=== PATIENT | male | born 1940 | race Caucasian/White ===

== ENCOUNTER 2017-12-02 02:37 | Emergency (ER) | payer MEDICARE, BC ==
[2017-12-02 03:07] LABS: #Lymphocytes 0.7 thou/uL (1.20-3.40); #Monocytes 0.4 thou/uL (0.11-0.59); #Neutrophils 5.3 thou/uL (1.40-6.50); %Eosinophils 0.1 % (0.0-10.0); %Monocytes 5.6 % (0.0-10.0); %Neutrophils 83.2 % (42.0-75.0); Hemoglobin 10.1 g/dL (14.0-18.0); Mean Corpuscular HGB CONC 33.2 g/dL (32.0-36.0); Mean Corpuscular Hemoglobin 38.3 pg (27.0-31.0); Mean Platelet Volume 8.8 fL (7.4-10.4); Platelet Count 120 thou/uL (130-400); Red Blood Cell (RBC) Count 2.65 mill/uL (4.70-6.10); White Blood Cell (WBC) Count 6.4 thou/uL (4.8-10.8)
[2017-12-02] MEDS ORDERED: Morphine 4 MG/ML VIAL ONE (03:11)
[2017-12-02 03:36] LABS: Troponin I Less than 0.010 ng/mL (< 0.028)
[2017-12-02 03:39] LABS: ALT (SGPT) 22 U/L (8-55); AST (SGOT) 25 U/L (5-34); Albumin 2.5 g/dL (3.4-4.8); Alkaline Phosphatase 69 U/L (40-150); Anion Gap 21 mmol/L (10-20); BUN (Urea Nitrogen) 22 mg/dL (8.4-25.7); Bilirubin, Total 0.4 mg/dL (0.2-1.2); Calc. Creatinine Clearance 0 mL/min (70-130); Calcium 10.4 mg/dL (7.8-10.44); Carbon Dioxide 21 mmol/L (23-31); Chloride 104 mmol/L (98-107); Estimated GFR-MDRD 61; Globulin 7.9 g/dL (2.4-3.5); Glucose 97 mg/dL (83-110); Potassium 4.7 mmol/L (3.5-5.1); Protein, Total 10.4 g/dL (5.8-8.1); Sodium 141 mmol/L (136-145)
[2017-12-02] MEDS ORDERED: HYDROcodone/Acetaminophen 5/325 mg Tablet ONE (05:08)
--- NOTE | 2017-12-02 08:33 | RAD ---
PORTABLE CHEST: DATE: 12/02/2017. PROVIDED CLINICAL HISTORY: Chest pain. FINDINGS: Comparison 10/21/2011. Cardiac and mediastinal silhouette is within normal limits for portable techniq ue. NO foal consolidation, pleural fluid, or pneumothorax apparent. IMPRESSION: No evidence for an acute cardiopulmonary process. POS: [facility]
--- NOTE | 2017-12-02 10:28 | CT ---
PRELIMINARY REPORT/[facility]/EMERGENTY AFTER-HOURS PROCEDURE CT Angiography Chest With Intravenous Contrast EXAM DATE/TIME: 12/02/2017 3:36 AM CLINICAL HISTORY: 77 years old, male; Pain and signs and symptoms; Shortness of breath; Chest pain; Type not specified; Patient HX: Currently being worked up for multiple myeloma, not on chemo. Reports mild cp yesterday that became worse today. Pain radiates around to his back. Associated with SOB. No nausea or diaphore sis. No history of prior similar pain. No prior cardiac history. TECHNIQUE: Axial computed tomographic angiography images of the chest with intravenous contrast using CT angiogr aphy protocol. MIP reconstructed images were created and reviewed. COMPARISON: No relevant prior studies available. FINDINGS: Pulmonary arteries: Some motion artifact noted. No pulmonary embolus identified. Aorta: No aortic aneurysm. No aortic dissection. Lungs: Bibasal subsegmental atelectasis, greater on the right. 3-4 mm nodule laterally in the right u pper lobe. 2 mm nodule laterally in the left upper lobe. No mass or consolidation. Pleural space: No pneumothorax. No pleural effusion. Heart: Mildly enlarged with left ventricular prominence. Scattered left coronary calcifications. No s ignificant pericardial effusion. Bones/joints: Right sixth and ninth rib fractures posteriorly with small amount of callus formation. Chronic appearing L1 compression deformity. Mild T12 wedging. Osteopenia. Diffuse small lytic lesions most evident in the vertebral bodies. Soft tissues: Unremarkable. Lymph nodes: Unremarkable. No enlarged lymph nodes. IMPRESSION: 1. No acute findings. Bibasal subsegmental atelectasis. 2. Subacute right posterior sixth and ninth rib fractures. Thank you for allowing us to participate in the care of your patient. Dictated and Authenticated by: Zane Posey MD 12/02/2017 4:34 AM Central Time ([place] & [place]) FINAL REPORT EMERGENCY AFTER HOURS CT ANGIOGRAM THORAX WITH IV CONTRAST AND 3D RECONSTRUCTIONS: Date: 12/02/17 HISTORY: Shortness of breath and chest pain for the last several days. Patient also having back pain. IMPRESSION: 1. No definite filling defects are seen in the pulmonary arteries to suggest pulmonary embolus. 2. Thoracic aorta is normal in caliber without evidence of an aortic dissection. 3. Elevation of the right hemidiaphragm with parenchymal changes right lung base, likely attributabl e to atelectasis. There is also mild atelectasis at the left lung base. 4. Nonspecific 3 mm pulmonary nodule lateral aspect right upper lobe. 5. Tiny, approximately 2.0 mm, nonspecific pulmonary nodule lateral aspect left upper lobe (image 59 , series 3). 6. Upper limits of normal to borderline cardiomegaly. 7. Fractures of the right posterior medial 6th and 9th ribs. 8. Compression fractures of T12 and L1 vertebral bodies with greater than 50% loss of height central ly involving the L1 vertebral body compression fracture. No retropulsion of fracture fragments is see n. These compression fractures were present on a MRI of the thoracic spine on 11/24/17. There is gene ralized mottled appearance of the vertebral bodies of the thoracic spine, worrisome for diffuse osseo us metastatic disease. 9. Lytic lesion in the lateral left 5th rib with slight heterogeneity of several ribs, including the ribs where fractures are visualized. Slight heterogeneous appearance involving the manubrium with sm all focal lucency in the right clavicle. 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 Findings are in agreement with the preliminary report by [facility]. POS: [facility]
== END 2017-12-02 05:06 | disposition home or self-care (01) ==
LOC: ERS 02:37
DX: R07.81 Pleurodynia (principal); Z79.899 Other long term (current) drug therapy
CPT/HCPCS: 71045; 71275; 80053; 82553; 83880; 84484; 85025; 93005; 96374; J2270

== ENCOUNTER 2018-02-10 10:18 | Day surgery (SDC) | payer MEDICARE, BC ==
[2018-02-10] MEDS ORDERED: Acetaminophen 500 MG TAB PO SCH (10:45)
[2018-02-10] MEDS ORDERED: diphenhydrAMINE 25 MG CAP PO SCH (10:45)
[2018-02-10 11:43] VITALS: BMI 27.6
[2018-02-10 19:33] VITALS: BP 120/60; TEMP 97.8
[2018-02-10 19:55] LABS: #Lymphocytes 0.8 thou/uL (1.20-3.40); #Monocytes 0.1 thou/uL (0.11-0.59); #Neutrophils 1.3 thou/uL (1.40-6.50); %Basophils 0.3 % (0.0-1.0); %Eosinophils 0.2 % (0.0-10.0); %Lymphocytes 37.5 % (21.0-51.0); %Monocytes 6.1 % (0.0-10.0); %Neutrophils 55.8 % (42.0-75.0); Hemoglobin 10.3 g/dL (14.0-18.0); Mean Corpuscular Hemoglobin 37.4 pg (27.0-31.0); Mean Platelet Volume 8.7 fL (7.4-10.4); Platelet Count 99 thou/uL (130-400); RBC Distribution Width 18.9 % (11.5-14.5); Red Blood Cell (RBC) Count 2.76 mill/uL (4.70-6.10); White Blood Cell (WBC) Count 2.2 thou/uL (4.8-10.8)
[2018-02-10 20:13] LABS: MDiff Complete? YES; Macrocytosis SLIGHT = 6-15 cells (100X) (0-5/hpf)
== END 2018-02-10 19:44 | disposition home or self-care (01) ==
LOC: ONC/OP 10:18 → 3SE 10:18 → ONC/OP 19:44
PROVIDERS: ATTEND Internal Medicine Hematology & Oncology
DX: D64.9 Anemia, unspecified (principal); D69.6 Thrombocytopenia, unspecified
CPT/HCPCS: 36415; 36430; 85025; 86850; 86900; 86901; P9016

== ENCOUNTER 2018-02-11 14:57 | Outpatient (CLI) | payer MEDICARE, BC ==
--- NOTE | 2018-02-11 19:10 | MRI ---
MRI OF BRAIN WITH AND WITHOUT CONTRAST: 02/11/18 COMPARISON: Brain MRI from [facility], 11/24/17. CLINICAL HISTORY: Multiple myeloma and history of recent visual disturbance, and inability to control movements of righ t upper extremity. FINDINGS: There is a segmental region of the increased DWI signal which reveals T2 hyperintensity on the ADC ma p. This involves the watershed region of the left cerebral hemisphere and contains multifocal gyrifor m cortically based enhancement. Finding was not present on the recent, comparison MRI. Associated FLA IR and T2 parenchymal hyperintensity is present. No significant hemorrhagic susceptibility is seen. H owever, there is a component of intrinsic T1 hyperintensity along the cortex of the posterior left ce rebral hemisphere. No obvious dural based enhancing mass. IMPRESSION: Interval development of a prominent region of signal alteration which includes intrinsic T1 hyperinte nsity, FLAIR and T2 hyperintensity, as well as enhancement localizing to watershed distribution of po sterior left cerebral hemisphere. This favors cortical laminar necrosis related to late subacute infa rction. No significant evidence of hemosiderin deposition within this region of abnormal parenchymal signal abnormality. Recommend clinical correlation for evidence of stroke within this timeframe. As a conservative measure, a short term followup MR in six to eight weeks would be beneficial to eval uate for expected, interval temporal evolution related to ischemia. If there is concern for osseous i nvolvement of the calvarium related to patient's history of myeloma, this would be more optimally int errogated with CT head exam, as necessary. POS: [facility]
== END 2018-02-11 14:58 | disposition home or self-care (01) ==
LOC: BICMRI 14:57
PROVIDERS: ATTEND Internal Medicine Hematology & Oncology
DX: I63.9 Cerebral infarction, unspecified (principal); R90.89 Other abnormal findings on diagnostic imaging of central nervous system
CPT/HCPCS: 70553

== ENCOUNTER 2018-09-09 12:31 | Emergency (ER) | payer BC, MEDICARE, OTHER ==
--- NOTE | 2018-09-09 13:44 | RAD ---
3 VIEWS LEFT WRIST: Date: 09/09/18 COMPARISON: None. HISTORY: Injury, trauma, pain. FINDINGS: There is a markedly comminuted, impacted and displaced fracture of the distal left radius extending i nto the radiocarpal and distal radial ulnar joints. There is also a comminuted and displaced fracture involving the base of the ulnar styloid. There is prominent associated soft tissue swelling. On the lateral examination, there is mild volar tilt at the fracture site of the distal left radius. IMPRESSION: Comminuted, displaced, and angulated intraarticular fracture of distal left radius with associated ul tasha styloid fracture. POS: [facility]
[2018-09-09 13:58] LABS: #Eosinphils 0.1 thou/uL (0.0-0.7); #Lymphocytes 1.2 thou/uL (1.20-3.40); #Monocytes 0.1 thou/uL (0.11-0.59); #Neutrophils 1.3 thou/uL (1.40-6.50); %Basophils 0.5 % (0.0-1.0); %Eosinophils 2.1 % (0.0-10.0); %Lymphocytes 44.8 % (21.0-51.0); %Monocytes 4.2 % (0.0-10.0); %Neutrophils 48.5 % (42.0-75.0); Hemoglobin 9.8 g/dL (14.0-18.0); Mean Corpuscular HGB CONC 34.4 g/dL (32.0-36.0); Mean Corpuscular Hemoglobin 38.7 pg (27.0-31.0); Mean Platelet Volume 9.5 fL (7.4-10.4); Platelet Count 136 thou/uL (130-400); RBC Distribution Width 15.1 % (11.5-14.5); Red Blood Cell (RBC) Count 2.53 mill/uL (4.70-6.10); White Blood Cell (WBC) Count 2.7 thou/uL (4.8-10.8)
[2018-09-09 14:19] LABS: MDiff Complete? YES; Macrocytosis SLIGHT = 6-15 cells (100X) (0-5/hpf); Ovalocytes SLIGHT = 2-5 cells (100X) (0-1/hpf); Platelet Morphology Comment Appears Adequate; Polychromasia SLIGHT = 2-3 cells (100X) (0-2/hpf)
[2018-09-09 14:20] LABS: ALT (SGPT) 16 U/L (8-55); AST (SGOT) 18 U/L (5-34); Albumin 3.1 g/dL (3.4-4.8); Alkaline Phosphatase 55 U/L (40-150); Anion Gap 12 mmol/L (10-20); BUN (Urea Nitrogen) 9 mg/dL (8.4-25.7); Bilirubin, Total 0.6 mg/dL (0.2-1.2); Calc. Creatinine Clearance 0 mL/min (70-130); Calcium 8.4 mg/dL (7.8-10.44); Carbon Dioxide 21 mmol/L (23-31); Chloride 105 mmol/L (98-107); Estimated GFR-MDRD 90; Globulin 3.2 g/dL (2.4-3.5); Glucose 89 mg/dL (83-110); Potassium 3.5 mmol/L (3.5-5.1); Protein, Total 6.3 g/dL (5.8-8.1); Sodium 134 mmol/L (136-145)
[2018-09-09] MEDS ORDERED: cefTRIAXone\\ROCEPHIN 2 GM VIAL ONE (14:27)
[2018-09-09] MEDS ORDERED: Sodium Chloride 0.9% 100 ML ONE (14:27)
--- NOTE | 2018-09-09 14:43 | RAD ---
RADIOGRAPH LEFT HAND 3 VIEWS: Date: 09/09/18 Time: 1321 hours HISTORY: 78-year-old male with traumatic fractures of the left hand with superimposed infection and drainage. COMPARISON: None available. FINDINGS: Comminuted, displaced fracture of base of ulnar styloid process, and adjacent medial-ulnar aspect of the distal ulnar metaphysis with moderate displacement. Comminuted fracture of distal radial metaphysis and epiphysis, with disruption of radiocarpal articul ar surface, and moderate displacement. Comminuted, mildly displaced fracture of proximal metaphysis of first metacarpal. No dislocation or o bvious gross disruption of first CMC joint. Fracture at base of fifth metacarpal, with rotation and mild to moderate displacement of medial-ulnar side fracture fragment. Partial disruption of medial aspect of fifth CMC joint space. Moderate DJD at second and third MCPs, and first IP. IMPRESSION: Acute, traumatic, displaced, comminuted fractures of distal radius (including intraarticular componen ts), distal ulnar metaphysis (including ulnar styloid), base of fifth metacarpal (including intraarti cular), and base of first metacarpal. POS: [facility]
[2018-09-09] MEDS ORDERED: Gentamicin Sulfate 300 MG in Sodium Chloride 0.9% 100 ML IVPB SCH (16:00)
== END 2018-09-09 16:42 | disposition short-term general hospital (02) ==
LOC: ERS 12:31
DX: S52.572B Other intraarticular fracture of lower end of left radius, initial encounter for open fracture type I or II (principal); S52.612B Displaced fracture of left ulna styloid process, initial encounter for open fracture type I or II; S62.316B Displaced fracture of base of fifth metacarpal bone, right hand, initial encounter for open fracture; S62.232B Other displaced fracture of base of first metacarpal bone, left hand, initial encounter for open fracture; V89.2XXA Person injured in unspecified motor-vehicle accident, traffic, initial encounter; Z79.899 Other long term (current) drug therapy
CPT/HCPCS: 29125; 80053; 83605; 85025; 85652; 86140; 87040; 96365; J0696; J1580; J3490

== ENCOUNTER 2018-10-15 19:44 | Inpatient (IN) | payer MEDICARE, BC ==
[2018-10-15 20:49] LABS: ALT (SGPT) 28 U/L (8-55); AST (SGOT) 37 U/L (5-34); Albumin 3.4 g/dL (3.4-4.8); Alkaline Phosphatase 83 U/L (40-150); Anion Gap 13 mmol/L (10-20); BUN (Urea Nitrogen) 9 mg/dL (8.4-25.7); Bilirubin, Total 0.3 mg/dL (0.2-1.2); Calc. Creatinine Clearance 0 mL/min (70-130); Calcium 8.4 mg/dL (7.8-10.44); Carbon Dioxide 18 mmol/L (23-31); Chloride 99 mmol/L (98-107); Estimated GFR-MDRD 59; Globulin 3.9 g/dL (2.4-3.5); Glucose 97 mg/dL (83-110); Potassium 4.3 mmol/L (3.5-5.1); Protein, Total 7.3 g/dL (5.8-8.1); Sodium 126 mmol/L (136-145)
[2018-10-15 20:52] LABS: Band 6 % (5-11); Hemoglobin 11.2 g/dL (14.0-18.0); Lymphocytes 51 % (21-51); MDiff Complete? YES; Mean Corpuscular HGB CONC 34.5 g/dL (32.0-36.0); Mean Corpuscular Hemoglobin 38.2 pg (27.0-31.0); Mean Platelet Volume 8.8 fL (7.4-10.4); Monocytes 12 % (0-10); Neutrophil 31 % (42-75); Platelet Count 145 thou/uL (130-400); Red Blood Cell (RBC) Count 2.93 mill/uL (4.70-6.10)
[2018-10-15] MEDS ORDERED: Ondansetron ODT 4 MG TAB ONE ×2 (20:54→20:55)
[2018-10-15] MEDS ORDERED: Cefepime 2 GM VIAL ONE (21:31)
--- NOTE | 2018-10-15 21:31 | RAD ---
PORTABLE CHEST ONE VIEW: 10/15/18 at 9:05 p.m. HISTORY: Fever. Patient is currently taking chemotherapy for multiple myeloma. FINDINGS: Comparison made with exam of 12/02/17. There is continued elevation of the right hemidiaphragm. No focal areas of consolidation, pneumothora samia, jessica pulmonary edema, or pleural effusions are seen. There are postop changes of right rotator cuff repair surgery. IMPRESSION: No acute process. POS: [facility]
[2018-10-15 22:23] LABS: Bacteria/HPF None Seen HPF (None Seen); Bilirubin Negative (Negative); Blood, Urine Trace (Negative); Clarity Clear (Clear); Glucose, Urine (Dipstick) Normal (Negative); Leukocyte 25 Leu/uL (Negative); Nitrite Negative (Negative); Protein, Urine (Dipstick) 100 mg/dL (Neg-Trace); Squamous Epithelial 0-3 HPF (0-3); Urobilinogen Normal mg/dL (Less than 2)
[2018-10-16] MEDS ORDERED: Acetaminophen 325 MG TAB PO PRN ×2 (00:41→00:42)
[2018-10-16] MEDS ORDERED: Ondansetron ODT 4 MG TAB SL PRN (00:41)
[2018-10-16] MEDS ORDERED: Ondansetron PF 4 MG/2 ML Vial IVP PRN ×2 (00:41→00:42)
[2018-10-16] MEDS ORDERED: diphenhydrAMINE 25 MG CAP PO PRN (00:42)
[2018-10-16] MEDS ORDERED: Sodium Chloride 0.9% 1,000 ML IV SCH ×2 (00:42→00:45)
[2018-10-16] MEDS ORDERED: Ondansetron ODT 4 MG TAB PO PRN (00:42)
[2018-10-16 01:23] VITALS: BMI 30.4
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
[2018-10-16 05:26] LABS: Anion Gap 12 mmol/L (10-20); BUN (Urea Nitrogen) 10 mg/dL (8.4-25.7); Calc. Creatinine Clearance 85 mL/min (70-130); Calcium 7.9 mg/dL (7.8-10.44); Carbon Dioxide 17 mmol/L (23-31); Chloride 104 mmol/L (98-107); Estimated GFR-MDRD 69; Glucose 99 mg/dL (83-110); Potassium 3.8 mmol/L (3.5-5.1); Sodium 129 mmol/L (136-145)
[2018-10-16 05:58] LABS: Band 7 % (5-11); Hemoglobin 10.2 g/dL (14.0-18.0); Lymphocytes 51 % (21-51); MDiff Complete? YES; Macrocytosis SLIGHT = 6-15 cells (100X) (0-5/hpf); Mean Corpuscular HGB CONC 34.6 g/dL (32.0-36.0); Mean Corpuscular Hemoglobin 38.7 pg (27.0-31.0); Mean Platelet Volume 8.3 fL (7.4-10.4); Monocytes 8 % (0-10); Neutrophil 34 % (42-75); Platelet Count 138 thou/uL (130-400); Platelet Morphology Comment Appears Adequate; Red Blood Cell (RBC) Count 2.64 mill/uL (4.70-6.10); White Blood Cell (WBC) Count 2.1 thou/uL (4.8-10.8)
[2018-10-16] MEDS: Lactated Ringer's 1,000 ML IV SCH ×2 (07:47→16:46)
[2018-10-16] MEDS ORDERED: Vancomycin HCl 1 GM in Premix Bag 1 BAG IVPB SCH (09:00)
[2018-10-16] MEDS: Cefepime 1 GM in Sodium Chloride 0.9% 100 ML IVPB SCH ×2 (09:00→19:35)
[2018-10-16] MEDS: Enoxaparin Sodium 40 MG/0.4 ML SYRINGE SC SCH (09:01)
[2018-10-16] MEDS ORDERED: Vancomycin HCl 750 MG in Sodium Chloride 0.9% 250 ML 250 ML IVPB SCH (11:00)
--- NOTE | 2018-10-16 11:23 | PDOC.HOSPP ---
- Subjective Encounter Date: 10/16/18 Encounter Time: 08:20 Subjective: 78 y/o male with MM on treatment, who recently discharged from another hospital on 10/14/2018 on antibiotics for diverticulitis now admitted with acute onset og fever. patient was found to have severe neutropenia and was admitted and started on broad spectrum antibiotics. patient with chronic constipation has been taking stool softeners but reported increase frequency since last night. Fever has subsided. - Objective Vital Signs & Weight: Vital Signs (12 hours) Temp Pulse Resp BP Pulse Ox 10/16/18 08:00 99.3 F 61 18 102/57 L 94 L 10/16/18 04:18 100.2 F H 65 12 106/59 L 94 L 10/16/18 00:41 99.1 F 76 16 115/72 98 10/16/18 00:00 99.1 F 76 16 115/72 98 Weight Weight 218 lb I&O: 10/15/18 10/16/18 10/17/18 06:59 06:59 06:59 Output Total 100 Balance -100 Result Diagrams: 10/16/18 04:45 10/16/18 04:45 Hospitalist ROS - Medication Medications: Active Medications Generic Name Dose Route Start Last Admin Trade Name Freq PRN Reason Stop Dose Admin Acetaminophen 650 mg 10/16/18 00:42 10/16/18 09:01 Tylenol PO 650 mg Q4H PRN Administration Headache/Fever/Mild Pain (1-3) Enoxaparin Sodium 40 mg 10/16/18 09:00 10/16/18 09:01 Lovenox SC 40 mg 0900 DACIA Administration Cefepime HCl 1 gm/ Sodium 100 mls @ 200 mls/hr 10/16/18 09:00 10/16/18 09:00 Chloride IVPB 100 mls Q12HR DACIA Administration Vancomycin HCl 750 mg/ Sodium 250 mls @ 250 mls/hr 10/16/18 11:00 10/16/18 10 :57 Chloride IVPB 250 mls 1100,2300 DACIA Administration Lactated Ringer's 1,000 mls @ 100 mls/hr 10/16/18 07:15 10/16/18 07:47 Lactated Ringer's IV 1,000 mls .Q10H DACIA Administration - Exam General Appearance: awake alert General - other findings: afebrile Eye: anicteric sclera ENT: normocephalic atraumatic Neck: supple, symmetric Heart: RRR Respiratory: no wheezes, no rales, no ronchi, normal chest expansion Gastrointestinal: soft, non-tender, non-distended, normal bowel sounds Extremities: no edema Extremeties - other findings: Left arm/forearm/hand covered in a cast. Neurological: CN's grossly intact, no focal deficits Psychiatric: normal affect, A&O x 3 Hosp A/P (1) Neutropenia with fever Code(s): D70.9 - NEUTROPENIA, UNSPECIFIED; R50.81 - FEVER PRESENTING WITH CONDITIONS CLASSIFIED ELSEWHERE Status: Acute (2) Sepsis Code(s): A41.9 - SEPSIS, UNSPECIFIED ORGANISM Status: Acute (3) Acute diverticulitis Code(s): K57.92 - DVTRCLI OF INTEST, PART UNSP, W/O PERF OR ABSCESS W/O BLEED Status: Acute (4) Multiple myeloma Code(s): C90.00 - MULTIPLE MYELOMA NOT HAVING ACHIEVED REMISSION Status: Acute (5) GILLIAN (acute kidney injury) Code(s): N17.9 - ACUTE KIDNEY FAILURE, UNSPECIFIED Status: Acute (6) HTN (hypertension) Code(s): I10 - ESSENTIAL (PRIMARY) HYPERTENSION Status: Acute (7) Hyponatremia Code(s): E87.1 - HYPO-OSMOLALITY AND HYPONATREMIA Status: Acute (8) Hyperchloremic metabolic acidosis Code(s): E87.2 - ACIDOSIS Status: Acute - Plan Continue antibiotics and neutropenic precaution substitute NS with LR due to worsening hyperchloremic acidosis Await stool dif ag test
[2018-10-16] MEDS: Sodium Bicarbonate Tab 325 MG TAB PO SCH ×2 (14:54→19:35)
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
--- NOTE | 2018-10-16 22:00 | CON ---
DATE OF CONSULTATION: 10/16/2018 REASON FOR CONSULTATION: Possible diverticulitis, fever and neutropenia in the setting of multiple myeloma. HISTORY OF PRESENT ILLNESS: 78-year-old with history of multiple myeloma on treatment by Dr. Justice. Currently, he is on Decadron in addition to other medications, not clear if he is taking any other drugs. He had some pain in the abdominal area and was seen at [place] and diagnosed with diverticulitis. He was there admitted for a few days and then released on the . After that, the patient is supposed to be on ciprofloxacin and Flagyl, which he took and initially there was improvement, but then the patient started having fever recurrence, had some diarrhea associated with it for the past few weeks. Because of persistence of fever, he came for evaluation, noticed anorexia as well. On arrival, his total white cell count is 2000 with 750 neutrophils and he has been started on broad-spectrum coverage. Currently, he is awake, feeling better. Has not had a bowel movement since admission. No headaches. No visual symptoms, sore throat, odynophagia, dysphagia. No neck pain. No dyspnea or cough. No abdominal pain. No genitourinary symptoms. No joint symptoms. PAST MEDICAL HISTORY: Multiple myeloma, melanoma, recently diagnosed diverticulitis and had a fracture of his left wrist with the cast in place and supposedly to be removed in 3 days. ALLERGIES: NONE. SOCIAL HISTORY: . Never smoker. FAMILY HISTORY: Parkinson disease. CURRENT MEDICATIONS: Cefepime, Benadryl, Lovenox, and Zofran. PHYSICAL EXAMINATION: VITAL SIGNS: T-max 100.2, blood pressure 106/59, pulse 57, respirations 16, and O2 saturation 93-94%. SKIN: Not particularly remarkable. Peripheral IV access, voiding in the toilet. No lymphadenopathy. GENERAL: Somewhat disheveled, chronically ill appearing, but in no acute distress. HEENT: Ocular movements are conjugate. Pupils are equal. Conjunctivae normal. NECK: Supple. LUNGS: Symmetric clear breath sounds. HEART: S1,. S2 without murmurs. ABDOMEN: Soft. Not distended or tender. No bladder distention. EXTREMITIES: The left upper extremity with cast in place, but no pain at the moment. No other appendicular structure changes noted. Pulses 1+ in dorsalis pedis. Moves extremities equally with limitations imposed by the left-sided upper extremity cast. NEURO: He is awake. He could not tell me where he was. Recollection is somewhat limited. He does follow commands. His speech appears to be okay. LABORATORY DATA: His white cell count is 2.0 and 2.1, hemoglobin 10, MCV 112, platelets 138, total neutrophil count 750, bands 7, lymphocytes 51%. Creatinine 1.04 with a GFR of 69. Sodium 129, AST 37, ALT 28, albumin 3.4. Urinalysis with 7-10 wbc's. Microbiology with C diff antigen and toxin negative. Two sets of blood cultures thus far no growth. IMAGING DATA: Chest x-ray with no infiltrates. ASSESSMENT: 1. Multiple myeloma on chemotherapy including Decadron plus Revlimid, recently diagnosed with diverticulitis and treated with Cipro and Flagyl. 2. Diarrhea, which seems to have improved. 3. Fever. 4. Moderate neutropenia. DISCUSSION: Differential diagnosis includes persistence of diverticulitis and an alternate intraabdominal inflammatory process, an opportunistic infection related to his chronic Decadron and Revlimid for tx of multiple myeloma. Thromboembolism appears to be less likely. Respiratory tract infection is not apparent in the exam. Chest x-ray is notoriously poorly sensitive sometimes for those early processes. The C diff has been ruled out. At this point, we would advise obtaining the results of the workup done in [place] and may consider repeating the CT abdomen and pelvis depending on the results of the original study. May need to follow up his chest film depending on clinical progress. Monitor blood cultures. Submit assays for opportunistic pathogens. Job ID: [id number] [id number]
[2018-10-17] MEDS: Lactated Ringer's 1,000 ML IV SCH ×3 (04:29→20:21)
[2018-10-17 05:31] LABS: Anion Gap 15 mmol/L (10-20); BUN (Urea Nitrogen) 8 mg/dL (8.4-25.7); Calc. Creatinine Clearance 97 mL/min (70-130); Carbon Dioxide 18 mmol/L (23-31); Chloride 103 mmol/L (98-107); Estimated GFR-MDRD 81; Glucose 84 mg/dL (83-110); Potassium 3.9 mmol/L (3.5-5.1); Sodium 132 mmol/L (136-145)
[2018-10-17 06:03] LABS: Band 4 % (5-11); Eosinophils 1 % (0-10); Hemoglobin 10.9 g/dL (14.0-18.0); Lymphocytes 67 % (21-51); MDiff Complete? YES; Macrocytosis SLIGHT = 6-15 cells (100X) (0-5/hpf); Mean Corpuscular HGB CONC 33.9 g/dL (32.0-36.0); Mean Corpuscular Hemoglobin 37.6 pg (27.0-31.0); Mean Platelet Volume 8.8 fL (7.4-10.4); Monocytes 7 % (0-10); Neutrophil 21 % (42-75); Platelet Count 141 thou/uL (130-400); RBC Distribution Width 15.3 % (11.5-14.5); Red Blood Cell (RBC) Count 2.89 mill/uL (4.70-6.10); White Blood Cell (WBC) Count 2.7 thou/uL (4.8-10.8)
[2018-10-17] MEDS: Cefepime 1 GM in Sodium Chloride 0.9% 100 ML IVPB SCH (08:31)
[2018-10-17] MEDS: Enoxaparin Sodium 40 MG/0.4 ML SYRINGE SC SCH (08:31)
[2018-10-17] MEDS: Sodium Bicarbonate Tab 325 MG TAB PO SCH ×3 (08:32→20:21)
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
--- NOTE | 2018-10-17 11:31 | PDOC.MOPN ---
Interval History: no fevers, no diarrhea, he is eating and drinking and keeping food down - Vital Signs Vital Signs: Vital Signs (12 hours) Temp Pulse Resp BP Pulse Ox 10/17/18 07:32 98.0 F 54 L 16 113/61 95 Weight Weight 218 lb - Physical Exam General: Alert HEENT: Atraumatic Lungs: Clear to auscultation Cardiovascular: Regular rate Abdomen: Normal bowel sounds, No tenderness, No hepatospenomegaly Extremities: No clubbing, No cyanosis Neurological: Normal gait Psych/Mental Status: Mental status NL - Labs Result Diagrams: 10/17/18 04:26 10/17/18 04:26 Lab results: Laboratory Results - last 24 hr 10/17/18 04:26: WBC 2.7 L, RBC 2.89 L, Hgb 10.9 L, Hct 32.2 L, MCV 111.0 H, MCH 37.6 H, MCHC 33.9, RDW 15.3 H, Plt Count 141, MPV 8.8, Neutrophils % (Manual) 21 L, Band Neuts % (Manual) 4 L, Lymphocytes % (Manual) 67 H, Monocytes % ( Manual) 7, Eosinophils % (Manual) 1, Macrocytosis SLIGHT = 6-15 cells 10/17/18 04:26: Sodium 132 L, Potassium 3.9, Chloride 103, Carbon Dioxide 18 L, Anion Gap 15, BUN 8 L, Creatinine 0.91, Estimated GFR (MDRD) 81, Glucose 84, Calcium 8.0 A/P - Plan Plan: 1. change to po levaquin 2. ok for d/c from our standpoint\ 3. f/u in clinic 4. hold revlimid and dex until he follows up ansd counts have recovered, they are on the rise 5. he will call us with fever
[2018-10-18 05:35] LABS: Anion Gap 10 mmol/L (10-20); BUN (Urea Nitrogen) 5 mg/dL (8.4-25.7); Calc. Creatinine Clearance 113 mL/min (70-130); Calcium 7.9 mg/dL (7.8-10.44); Carbon Dioxide 23 mmol/L (23-31); Chloride 107 mmol/L (98-107); Estimated GFR-MDRD Greater than 90; Glucose 88 mg/dL (83-110); Potassium 3.7 mmol/L (3.5-5.1); Sodium 136 mmol/L (136-145)
[2018-10-18 06:04] LABS: Band 4 % (5-11); Eosinophils 2 % (0-10); Hemoglobin 9.7 g/dL (14.0-18.0); Lymphocytes 63 % (21-51); MDiff Complete? YES; Mean Corpuscular HGB CONC 34.7 g/dL (32.0-36.0); Mean Corpuscular Hemoglobin 37.9 pg (27.0-31.0); Mean Platelet Volume 8.6 fL (7.4-10.4); Monocytes 3 % (0-10); Neutrophil 28 % (42-75); Platelet Count 127 thou/uL (130-400); RBC Distribution Width 15.1 % (11.5-14.5); Red Blood Cell (RBC) Count 2.56 mill/uL (4.70-6.10); White Blood Cell (WBC) Count 1.7 thou/uL (4.8-10.8)
--- NOTE | 2018-10-18 07:00 | PDOC.HOSPP ---
- Subjective Encounter Date: 10/18/18 Encounter Time: 06:58 Subjective: No New problem. Denied fever or abdominal pain. Appetite and oral intake is good. - Objective Vital Signs & Weight: Vital Signs (12 hours) Temp Pulse Resp BP Pulse Ox 10/17/18 20:00 98.0 F 54 L 16 126/65 95 Weight Weight 218 lb I&O: 10/16/18 10/17/18 10/18/18 06:59 06:59 06:59 Intake Total 1500 4250 Output Total 100 900 Balance -100 1500 3350 Result Diagrams: 10/18/18 05:04 10/18/18 05:04 Hospitalist ROS - Medication Medications: Active Medications Generic Name Dose Route Start Last Admin Trade Name Freq PRN Reason Stop Dose Admin Acetaminophen 650 mg 10/16/18 00:42 10/16/18 09:01 Tylenol PO 650 mg Q4H PRN Administration Headache/Fever/Mild Pain (1-3) Enoxaparin Sodium 40 mg 10/16/18 09:00 10/17/18 08:31 Lovenox SC 40 mg 0900 DACIA Administration Lactated Ringer's 1,000 mls @ 100 mls/hr 10/16/18 07:15 10/17/18 20:21 Lactated Ringer's IV 1,000 mls .Q10H DACIA Administration Levofloxacin 750 mg 10/17/18 12:00 10/17/18 12:20 Levaquin PO 10/20/18 12:01 750 mg 1200 DACIA Administration Sodium Bicarbonate 650 mg 10/16/18 15:00 10/17/18 20:21 Bicarbonate, Sodium PO 650 mg TID DACIA Administration Hosp A/P (1) Neutropenia with fever Code(s): D70.9 - NEUTROPENIA, UNSPECIFIED; R50.81 - FEVER PRESENTING WITH CONDITIONS CLASSIFIED ELSEWHERE Status: Acute (2) Sepsis Code(s): A41.9 - SEPSIS, UNSPECIFIED ORGANISM Status: Acute (3) Acute diverticulitis Code(s): K57.92 - DVTRCLI OF INTEST, PART UNSP, W/O PERF OR ABSCESS W/O BLEED Status: Acute (4) Multiple myeloma Code(s): C90.00 - MULTIPLE MYELOMA NOT HAVING ACHIEVED REMISSION Status: Acute (5) GILLIAN (acute kidney injury) Code(s): N17.9 - ACUTE KIDNEY FAILURE, UNSPECIFIED Status: Acute (6) HTN (hypertension) Code(s): I10 - ESSENTIAL (PRIMARY) HYPERTENSION Status: Acute (7) Hyponatremia Code(s): E87.1 - HYPO-OSMOLALITY AND HYPONATREMIA Status: Acute (8) Hyperchloremic metabolic acidosis Code(s): E87.2 - ACIDOSIS Status: Acute - Plan Discharged home today to meet appointment with Ortho. Discharge summary dictated. #[id number]
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
[2018-10-18] MEDS: Sodium Bicarbonate Tab 325 MG TAB PO SCH ×2 (08:01→14:44)
[2018-10-18] MEDS: Enoxaparin Sodium 40 MG/0.4 ML SYRINGE SC SCH (08:02)
[2018-10-18 08:12] VITALS: BP 111/53; TEMP 97.9
--- NOTE | 2018-10-18 16:28 | PDOC.MOPN ---
Interval History: Patient denies complaints. - Vital Signs Vital Signs: Vital Signs (12 hours) Temp Pulse Resp BP Pulse Ox 10/18/18 08:00 97.9 F 48 L 16 111/53 L 94 L Weight Weight 218 lb - Physical Exam General: Alert, Oriented x3, No acute distress HEENT: Atraumatic, PERRLA, EOMI, Mucous membr. moist/pink Lungs: Clear to auscultation, Normal air movement Cardiovascular: Regular rate, Normal S1, Normal S2, No murmurs, Gallops, Rubs Abdomen: Normal bowel sounds, Soft, No tenderness, No hepatospenomegaly, No masses Extremities: No clubbing, No cyanosis, No edema, Normal pulses, No tenderness/ swelling Skin: No rashes, No breakdown, No significant lesion Neurological: Normal gait, Normal speech, Strength at 5/5 X4 ext, Normal tone, Sensation intact, Cranial nerves 3-12 NL, Reflexes 2+ Psych/Mental Status: Mental status NL, Mood NL - Labs Result Diagrams: 10/18/18 05:04 10/18/18 05:04 Lab results: Laboratory Results - last 24 hr 10/18/18 05:04: Sodium 136, Potassium 3.7, Chloride 107, Carbon Dioxide 23, Anion Gap 10, BUN 5 L, Creatinine 0.78, Estimated GFR (MDRD) Greater than 90, Glucose 88, Calcium 7.9 10/18/18 05:04: WBC 1.7 L, RBC 2.56 L, Hgb 9.7 L, Hct 27.9 L, MCV 109.0 H, MCH 37.9 H, MCHC 34.7, RDW 15.1 H, Plt Count 127 L, MPV 8.6, Neutrophils % (Manual) 28 L, Band Neuts % (Manual) 4 L, Lymphocytes % (Manual) 63 H, Monocytes % ( Manual) 3, Eosinophils % (Manual) 2 Status: lab reviewed by me A/P - Problem (1) Multiple myeloma Current Visit: Yes Code(s): C90.00 - MULTIPLE MYELOMA NOT HAVING ACHIEVED REMISSION Status: Acute (2) Neutropenia with fever Current Visit: Yes Code(s): D70.9 - NEUTROPENIA, UNSPECIFIED; R50.81 - FEVER PRESENTING WITH CONDITIONS CLASSIFIED ELSEWHERE Status: Acute - Plan Plan: Patient to be discharged home today Follow-up Dr. Justice 11/01/18 at 1:00pm
[2018-10-19 07:13] LABS: CMV DNA-PCR Test Negative (Negative)
== END 2018-10-18 16:47 | disposition home or self-care (01) | DRG 808 ==
LOC: ERS 19:44 → ONC 21:50
PROVIDERS: ADMIT Internal Medicine; ATTEND Internal Medicine
DX: D70.1 Agranulocytosis secondary to cancer chemotherapy (principal); A41.9 Sepsis, unspecified organism; C79.2 Secondary malignant neoplasm of skin; E87.1 Hypo-osmolality and hyponatremia; K57.92 Diverticulitis of intestine, part unspecified, without perforation or abscess without bleeding; N17.9 Acute kidney failure, unspecified; E87.2 Acidosis; C90.00 Multiple myeloma not having achieved remission; R50.81 Fever presenting with conditions classified elsewhere; K59.09 Other constipation; E86.0 Dehydration; X58.XXXD Exposure to other specified factors, subsequent encounter; T45.1X5A Adverse effect of antineoplastic and immunosuppressive drugs, initial encounter; E87.8 Other disorders of electrolyte and fluid balance, not elsewhere classified; S62.102D Fracture of unspecified carpal bone, left wrist, subsequent encounter for fracture with routine healing; Z79.899 Other long term (current) drug therapy; Z79.82 Long term (current) use of aspirin
CPT/HCPCS: 36415; 71045; 80048; 80053; 81003; 81015; 83605; 83930; 83935; 84300; 84443; 85025; 87040; 87324; 87449; 87497; 87899; 96361; 96365; 96367; J0692; J1650; J3370; J3490; J7050; Q0162

== ENCOUNTER 2020-04-15 15:31 | Outpatient (CLI) | payer MEDICARE, BC ==
--- NOTE | 2020-04-15 15:49 | RAD ---
EXAM: Two views chest PROVIDED CLINICAL HISTORY: Cough. Expiratory wheezing. Throat pain. COMPARISON: 10/15/2018. FINDINGS: Cardiac silhouette is mildly enlarged. Pulmonary vasculature is within normal limits. Mild elevation right hemidiaphragm is again present. Lungs are clear. Postoperative changes bilateral shoulders. IMPRESSION: 1. No acute cardiopulmonary process. 2. Borderline cardiomegaly..
== END 2020-04-15 15:32 | disposition home or self-care (01) ==
LOC: BICRAD 15:31
PROVIDERS: ATTEND Physician Assistant Medical
DX: R06.2 Wheezing (principal); R05 Cough; R07.0 Pain in throat; R13.10 Dysphagia, unspecified
CPT/HCPCS: 71046; 80053; 85025; U0003; U0005; 36415; 87635

== ENCOUNTER 2020-04-30 10:39 | Outpatient (CLI) | payer MEDICARE, BC ==
[2020-04-30] MEDS ORDERED: Iopamidol 370 76% 100 ML VIAL ONE (11:28)
== END 2020-04-30 10:40 | disposition home or self-care (01) ==
LOC: BICCT 10:39
PROVIDERS: ATTEND Physician Assistant Medical
DX: R05 Cough (principal); R06.2 Wheezing; R07.0 Pain in throat
CPT/HCPCS: 71260; Q9967

== ENCOUNTER 2020-10-29 18:09 | Inpatient (IN) | payer MEDICARE, BC ==
[~2020-10-29 18:09] MED LIST: Iopamidol-370 76% 500 ML 1 ML ONE
[2020-10-29 18:54] LABS: Hemoglobin 14.4 g/dL (14.0-18.0); Mean Corpuscular Hemoglobin 37.1 pg (27.0-31.0); Mean Platelet Volume 10.2 fL (7.4-10.4); Platelet Count 106 thou/uL (130-400); RBC Distribution Width 15.8 % (11.5-14.5); Red Blood Cell (RBC) Count 3.88 mill/uL (4.70-6.10)
[2020-10-29 19:07] LABS: #Lymphocytes 0.7 thou/uL (1.20-3.40); #Monocytes 0.2 thou/uL (0.11-0.59); #Neutrophils 2.5 thou/uL (1.40-6.50); %Basophils 0.5 % (0.0-1.0); %Eosinophils 0.5 % (0.0-10.0); %Lymphocytes 20.8 % (21.0-51.0); %Monocytes 4.7 % (0.0-10.0); %Neutrophils 73.5 % (42.0-75.0); Anisocytosis SLIGHT = 6-15 cells (100X) (0-5/hpf); Band 3 % (5-11); Eosinophils 1 % (0-10); Lymphocytes 17 % (21-51); MDiff Complete? YES; Macrocytosis SLIGHT = 6-15 cells (100X) (0-5/hpf); Monocytes 6 % (0-10); Neutrophil 71 % (42-75); Ovalocytes SLIGHT = 2-5 cells (100X) (0-1/hpf); Platelet Morphology Comment Appears Decreased; Reactive Lymphocytes 1 % (0-10); White Blood Cell (WBC) Count 3.4 thou/uL (4.8-10.8)
[2020-10-29 19:11] LABS: Bacteria/HPF 2+ HPF (None Seen); Bilirubin 1+ (Negative); Blood, Urine 2+ (Negative); Clarity Cloudy (Clear); Glucose, Urine (Dipstick) Normal (Negative); Ketone, Urine 10 mg/dL (Negative); Leukocyte Negative Leu/uL (Negative); Nitrite Negative (Negative); Protein, Urine (Dipstick) 100 mg/dL (Neg-Trace); Specific Gravity, Urine 1.028 (1.002-1.036); Squamous Epithelial 0-3 HPF (0-3); Urobilinogen Normal mg/dL (Less than 2)
[2020-10-29 19:11] LABS: ALT (SGPT) 58 U/L (8-55); AST (SGOT) 40 U/L (5-34); Albumin 3.7 g/dL (3.4-4.8); Alkaline Phosphatase 112 U/L (40-110); Anion Gap 16 mmol/L (10-20); BUN (Urea Nitrogen) 13 mg/dL (8.4-25.7); Bilirubin, Total 1.4 mg/dL (0.2-1.2); Calc. Creatinine Clearance 0 mL/min (70-130); Carbon Dioxide 22 mmol/L (23-31); Chloride 99 mmol/L (98-107); Globulin 2.5 g/dL (2.4-3.5); Glucose 94 mg/dL (83-110); Protein, Total 6.2 g/dL (5.8-8.1); Sodium 134 mmol/L (136-145)
[2020-10-29 19:33] LABS: CKMB 0.9 ng/mL (0-6.6)
[2020-10-29] MEDS ORDERED: cefTRIAXone\\ROCEPHIN 1 GM VIAL ONE (19:48)
[2020-10-29] MEDS ORDERED: Acetaminophen 650 MG Suppository PR PRN (22:44)
[2020-10-29] MEDS ORDERED: Ondansetron PF 4 MG/2 ML Vial IVP PRN (22:44)
[2020-10-29] MEDS ORDERED: Ondansetron ODT 4 MG TAB PO PRN (22:44)
[2020-10-29] MEDS ORDERED: Acetaminophen 325 MG TAB PO PRN (22:44)
[2020-10-29 22:59] LABS: Troponin I 0.046 ng/mL (< 0.028)
[2020-10-29 23:30] VITALS: BMI 29.9
[2020-10-29] MEDS ORDERED: Albuterol 200 PUFF (6.7GM INHALER) INH PRN (23:41)
[2020-10-29] MEDS ORDERED: Electrolyte Replacement Protocol 1 EACH FS SCH (23:45)
[2020-10-29] MEDS ORDERED: Potassium Chloride 20 MEQ TAB PO SCH (23:59)
[2020-10-29] MEDS ORDERED: Enoxaparin Sodium 40 MG/0.4 ML SYRINGE SC SCH (23:59)
[2020-10-30] MEDS ORDERED: Dexamethasone 10 MG/ML VIAL SLOW IVP SCH ×2 (05:02→09:00)
[2020-10-30 05:49] LABS: Anion Gap 16 mmol/L (10-20); BUN (Urea Nitrogen) 11 mg/dL (8.4-25.7); Calc. Creatinine Clearance 86 mL/min (70-130); Calcium 6.3 mg/dL (7.8-10.44); Carbon Dioxide 17 mmol/L (23-31); Chloride 103 mmol/L (98-107); Glucose 90 mg/dL (83-110); Sodium 133 mmol/L (136-145)
[2020-10-30 05:54] LABS: #Lymphocytes 0.8 thou/uL (1.20-3.40); #Monocytes 0.2 thou/uL (0.11-0.59); #Neutrophils 2.1 thou/uL (1.40-6.50); %Basophils 0.1 % (0.0-1.0); %Eosinophils 0.2 % (0.0-10.0); %Lymphocytes 25.3 % (21.0-51.0); %Monocytes 5.4 % (0.0-10.0); Hemoglobin 13.1 g/dL (14.0-18.0); Mean Corpuscular HGB CONC 33.6 g/dL (32.0-36.0); Mean Corpuscular Hemoglobin 35.1 pg (27.0-31.0); Mean Platelet Volume 10.3 fL (7.4-10.4); Platelet Count 93 thou/uL (130-400); RBC Distribution Width 15.7 % (11.5-14.5); Red Blood Cell (RBC) Count 3.73 mill/uL (4.70-6.10); White Blood Cell (WBC) Count 3.1 thou/uL (4.8-10.8)
[2020-10-30] MEDS ORDERED: Potassium Chloride 20 MEQ TAB PO SCH (06:30)
[2020-10-30] MEDS ORDERED: Magnesium Sulfate 4 GM in Sodium Chloride 0.9% 250 ML 250 ML IVPB SCH (08:00)
[2020-10-30] MEDS: Cholecalciferol (Vitamin D3) 400 UNITS TAB PO SCH (08:13)
[2020-10-30] MEDS: Ascorbic Acid 500 mg Chewable Tablet PO SCH (08:14)
[2020-10-30] MEDS: Zinc Sulfate 220 MG CAP PO SCH (08:14)
[2020-10-30] MEDS: Pantoprazole 40 MG VIAL IVP SCH (08:14)
[2020-10-30] MEDS: Enoxaparin Sodium 40 MG/0.4 ML SYRINGE SC SCH ×2 (08:14→20:10)
[2020-10-30] MEDS: guaiFENesin ER 600 MG TAB PO SCH ×2 (08:15→20:06)
[2020-10-30] MEDS: Cefepime 1 GM in Sodium Chloride 0.9% 100 ML IVPB SCH (21:57)
[2020-10-31 03:05] LABS: Legionella Urinary Ag Negative (Negative); Strep pneumo Urine Ag NEGATIVE (NEGATIVE)
[2020-10-31 05:06] LABS: #Lymphocytes 0.5 thou/uL (1.20-3.40); #Monocytes 0.1 thou/uL (0.11-0.59); #Neutrophils 1.9 thou/uL (1.40-6.50); %Eosinophils 0.6 % (0.0-10.0); %Lymphocytes 19.6 % (21.0-51.0); %Monocytes 2.8 % (0.0-10.0); %Neutrophils 77.1 % (42.0-75.0); Hemoglobin 13.2 g/dL (14.0-18.0); Mean Corpuscular HGB CONC 33.9 g/dL (32.0-36.0); Mean Corpuscular Hemoglobin 35.7 pg (27.0-31.0); Platelet Count 100 thou/uL (130-400); RBC Distribution Width 15.7 % (11.5-14.5); White Blood Cell (WBC) Count 2.4 thou/uL (4.8-10.8)
[2020-10-31 05:20] LABS: Anion Gap 14 mmol/L (10-20); BUN (Urea Nitrogen) 8 mg/dL (8.4-25.7); CRP (Inflammatory) 14.11 mg/dL (= or < 0.5); Calc. Creatinine Clearance 89 mL/min (70-130); Calcium 6.5 mg/dL (7.8-10.44); Carbon Dioxide 19 mmol/L (23-31); Chloride 102 mmol/L (98-107); Glucose 99 mg/dL (83-110); Sodium 132 mmol/L (136-145)
[2020-10-31] MEDS ORDERED: Potassium Chloride 20 MEQ TAB PO SCH (06:45)
[2020-10-31] MEDS: Pantoprazole 40 MG VIAL IVP SCH (08:40)
[2020-10-31] MEDS: Ascorbic Acid 500 mg Chewable Tablet PO SCH (08:40)
[2020-10-31] MEDS: Cholecalciferol (Vitamin D3) 400 UNITS TAB PO SCH (08:41)
[2020-10-31] MEDS: Zinc Sulfate 220 MG CAP PO SCH (08:41)
[2020-10-31] MEDS: guaiFENesin ER 600 MG TAB PO SCH ×2 (08:42→20:31)
[2020-10-31] MEDS: Cefepime 1 GM in Sodium Chloride 0.9% 100 ML IVPB SCH ×2 (08:42→20:30)
[2020-10-31] MEDS: Enoxaparin Sodium 40 MG/0.4 ML SYRINGE SC SCH ×2 (10:41→20:30)
[2020-10-31] MEDS ORDERED: Melatonin 3 MG TAB PO PRN (16:01)
[2020-11-01 04:56] LABS: Hemoglobin 13.1 g/dL (14.0-18.0); Mean Corpuscular Hemoglobin 35.8 pg (27.0-31.0); Mean Platelet Volume 9.8 fL (7.4-10.4); Platelet Count 94 thou/uL (130-400); RBC Distribution Width 15.6 % (11.5-14.5); Red Blood Cell (RBC) Count 3.67 mill/uL (4.70-6.10); White Blood Cell (WBC) Count 1.9 thou/uL (4.8-10.8)
[2020-11-01 04:57] LABS: #Lymphocytes 0.7 thou/uL (1.20-3.40); #Monocytes 0.1 thou/uL (0.11-0.59); #Neutrophils 1.2 thou/uL (1.40-6.50); %Eosinophils 0.6 % (0.0-10.0); %Lymphocytes 35.4 % (21.0-51.0); %Monocytes 3.5 % (0.0-10.0); %Neutrophils 60.5 % (42.0-75.0)
[2020-11-01 05:05] LABS: Anion Gap 15 mmol/L (10-20); BUN (Urea Nitrogen) 6 mg/dL (8.4-25.7); Calc. Creatinine Clearance 96 mL/min (70-130); Calcium 6.5 mg/dL (7.8-10.44); Carbon Dioxide 20 mmol/L (23-31); Chloride 101 mmol/L (98-107); Glucose 88 mg/dL (83-110); Potassium 3.3 mmol/L (3.5-5.1); Sodium 133 mmol/L (136-145)
[2020-11-01] MEDS ORDERED: Potassium Chloride 20 MEQ TAB PO SCH (07:00)
[2020-11-01] MEDS: Ascorbic Acid 500 mg Chewable Tablet PO SCH (08:58)
[2020-11-01] MEDS: guaiFENesin ER 600 MG TAB PO SCH ×2 (08:59→20:58)
[2020-11-01] MEDS: Zinc Sulfate 220 MG CAP PO SCH (08:59)
[2020-11-01] MEDS: Cholecalciferol (Vitamin D3) 400 UNITS TAB PO SCH (08:59)
[2020-11-01] MEDS: Cefepime 1 GM in Sodium Chloride 0.9% 100 ML IVPB SCH ×2 (08:59→20:58)
[2020-11-01] MEDS: Pantoprazole 40 MG VIAL IVP SCH (08:59)
[2020-11-01] MEDS: Enoxaparin Sodium 40 MG/0.4 ML SYRINGE SC SCH ×3 (09:00→20:58)
[2020-11-02] MEDS: Cefepime 1 GM in Sodium Chloride 0.9% 100 ML IVPB SCH ×2 (09:21→22:14)
[2020-11-02] MEDS: Ascorbic Acid 500 mg Chewable Tablet PO SCH (09:22)
[2020-11-02] MEDS: guaiFENesin ER 600 MG TAB PO SCH ×2 (09:24→22:15)
[2020-11-02] MEDS: Pantoprazole 40 MG VIAL IVP SCH (09:25)
[2020-11-02] MEDS: Enoxaparin Sodium 40 MG/0.4 ML SYRINGE SC SCH ×2 (09:25→22:14)
[2020-11-02] MEDS: Cholecalciferol (Vitamin D3) 400 UNITS TAB PO SCH (09:25)
[2020-11-02] MEDS: Zinc Sulfate 220 MG CAP PO SCH (09:25)
[2020-11-02 12:07] LABS: Anion Gap 12 mmol/L (10-20); BUN (Urea Nitrogen) 8 mg/dL (8.4-25.7); CRP (Inflammatory) 12.86 mg/dL (= or < 0.5); Calc. Creatinine Clearance 99 mL/min (70-130); Calcium 6.5 mg/dL (7.8-10.44); Carbon Dioxide 21 mmol/L (23-31); Chloride 100 mmol/L (98-107); Glucose 113 mg/dL (83-110); Sodium 130 mmol/L (136-145)
[2020-11-02 12:11] LABS: Hemoglobin 12.9 g/dL (14.0-18.0); Mean Corpuscular HGB CONC 33.9 g/dL (32.0-36.0); Mean Corpuscular Hemoglobin 35.5 pg (27.0-31.0); Mean Platelet Volume 9.3 fL (7.4-10.4); Platelet Count 125 thou/uL (130-400); RBC Distribution Width 15.6 % (11.5-14.5); Red Blood Cell (RBC) Count 3.63 mill/uL (4.70-6.10); White Blood Cell (WBC) Count 1.2 thou/uL (4.8-10.8)
[2020-11-02 12:20] LABS: Potassium 2.9 mmol/L (3.5-5.1)
[2020-11-02] MEDS: Potassium Chloride 20 MEQ TAB PO SCH ×2 (12:36→17:16)
[2020-11-02 12:58] LABS: Anisocytosis SLIGHT = 6-15 cells (100X) (0-5/hpf); Lymphocytes 36 % (21-51); MDiff Complete? YES; Monocytes 6 % (0-10); Neutrophil 58 % (42-75); Platelet Morphology Comment Appears Adequate
[2020-11-02] MEDS ORDERED: Potassium Chloride 20 MEQ TAB PO SCH (13:00)
[2020-11-02] MEDS: Sodium Chloride 0.9% 1,000 ML IV SCH (13:04)
[2020-11-02] MEDS: Vancomycin HCl 25 MG/ML Oral PO SCH ×2 (15:42→22:14)
[2020-11-03] MEDS: Sodium Chloride 0.9% 1,000 ML IV SCH (03:23)
[2020-11-03] MEDS: Vancomycin HCl 25 MG/ML Oral PO SCH ×4 (03:23→22:00)
[2020-11-03 06:10] LABS: #Lymphocytes 0.5 thou/uL (1.20-3.40); #Monocytes 0.1 thou/uL (0.11-0.59); #Neutrophils 0.8 thou/uL (1.40-6.50); %Eosinophils 0.5 % (0.0-10.0); %Lymphocytes 37.9 % (21.0-51.0); %Neutrophils 55.6 % (42.0-75.0); Hemoglobin 12.2 g/dL (14.0-18.0); Mean Corpuscular HGB CONC 33.3 g/dL (32.0-36.0); Mean Corpuscular Hemoglobin 34.8 pg (27.0-31.0); Mean Platelet Volume 9.2 fL (7.4-10.4); Platelet Count 138 thou/uL (130-400); RBC Distribution Width 15.8 % (11.5-14.5); Red Blood Cell (RBC) Count 3.51 mill/uL (4.70-6.10); White Blood Cell (WBC) Count 1.4 thou/uL (4.8-10.8)
[2020-11-03 06:31] LABS: Anion Gap 15 mmol/L (10-20); BUN (Urea Nitrogen) 7 mg/dL (8.4-25.7); Calc. Creatinine Clearance 104 mL/min (70-130); Calcium 6.6 mg/dL (7.8-10.44); Carbon Dioxide 20 mmol/L (23-31); Chloride 103 mmol/L (98-107); Glucose 90 mg/dL (83-110); Potassium 3.5 mmol/L (3.5-5.1); Sodium 134 mmol/L (136-145)
[2020-11-03] MEDS ORDERED: Potassium Chloride 20 MEQ TAB PO SCH (07:15)
[2020-11-03] MEDS ORDERED: Loperamide HCl 1 MG/7.5 ML UDCUP PO PRN (09:43)
[2020-11-03] MEDS: Ascorbic Acid 500 mg Chewable Tablet PO SCH (10:17)
[2020-11-03] MEDS: Zinc Sulfate 220 MG CAP PO SCH (10:18)
[2020-11-03] MEDS: Enoxaparin Sodium 40 MG/0.4 ML SYRINGE SC SCH ×2 (10:18→21:59)
[2020-11-03] MEDS: Cefepime 1 GM in Sodium Chloride 0.9% 100 ML IVPB SCH ×2 (10:19→22:00)
[2020-11-03] MEDS: Cholecalciferol (Vitamin D3) 400 UNITS TAB PO SCH (10:19)
[2020-11-03] MEDS: guaiFENesin ER 600 MG TAB PO SCH ×2 (10:19→22:00)
[2020-11-03] MEDS: Pantoprazole 40 MG VIAL IVP SCH (10:20)
[2020-11-03] MEDS ORDERED: Insulin Regular 300 UNITS/3 ML VIAL ONE ×2 (13:49→15:15)
[2020-11-04] MEDS: Vancomycin HCl 25 MG/ML Oral PO SCH ×4 (00:13→18:06)
[2020-11-04 06:08] LABS: Anion Gap 17 mmol/L (10-20); BUN (Urea Nitrogen) 6 mg/dL (8.4-25.7); Calc. Creatinine Clearance 110 mL/min (70-130); Calcium 6.9 mg/dL (7.8-10.44); Carbon Dioxide 18 mmol/L (23-31); Chloride 103 mmol/L (98-107); Glucose 94 mg/dL (83-110); Potassium 3.5 mmol/L (3.5-5.1); Sodium 134 mmol/L (136-145)
[2020-11-04 06:19] LABS: Band 12 % (5-11); Hemoglobin 13.1 g/dL (14.0-18.0); Hypochromia SLIGHT = 6-15 cells (100X) (0-5/hpf); Lymphocytes 32 % (21-51); MDiff Complete? YES; Macrocytosis SLIGHT = 6-15 cells (100X) (0-5/hpf); Mean Corpuscular HGB CONC 36.6 g/dL (32.0-36.0); Mean Corpuscular Hemoglobin 38.3 pg (27.0-31.0); Mean Platelet Volume 9.2 fL (7.4-10.4); Neutrophil 56 % (42-75); Platelet Count 185 thou/uL (130-400); Platelet Morphology Comment Appears Adequate; RBC Distribution Width 15.9 % (11.5-14.5); Red Blood Cell (RBC) Count 3.43 mill/uL (4.70-6.10); White Blood Cell (WBC) Count 1.6 thou/uL (4.8-10.8)
[2020-11-04] MEDS ORDERED: Potassium Chloride 20 MEQ TAB PO SCH (06:45)
[2020-11-04] MEDS: Ascorbic Acid 500 mg Chewable Tablet PO SCH (08:59)
[2020-11-04] MEDS: Zinc Sulfate 220 MG CAP PO SCH (08:59)
[2020-11-04] MEDS: Benzonatate 100 MG CAP PO PRN (09:00)
[2020-11-04] MEDS: Cholecalciferol (Vitamin D3) 400 UNITS TAB PO SCH (09:00)
[2020-11-04] MEDS: Enoxaparin Sodium 40 MG/0.4 ML SYRINGE SC SCH ×2 (09:01→20:14)
[2020-11-04] MEDS: Cefepime 1 GM in Sodium Chloride 0.9% 100 ML IVPB SCH (09:01)
[2020-11-04] MEDS: guaiFENesin ER 600 MG TAB PO SCH ×2 (09:01→20:14)
[2020-11-04] MEDS: Pantoprazole 40 MG VIAL IVP SCH (09:02)
[2020-11-04] MEDS ORDERED: Furosemide 20 MG/2 ML VIAL SLOW IVP SCH (17:30)
[2020-11-04] MEDS ORDERED: Dexamethasone 4 mg/ml Vial SLOW IVP SCH (17:45)
[2020-11-04] MEDS ORDERED: Insulin Regular 300 UNITS/3 ML VIAL ONE (17:58)
[2020-11-05] MEDS: Vancomycin HCl 25 MG/ML Oral PO SCH ×5 (00:38→23:53)
[2020-11-05 06:16] LABS: Anion Gap 17 mmol/L (10-20); BUN (Urea Nitrogen) 10 mg/dL (8.4-25.7); Calc. Creatinine Clearance 120 mL/min (70-130); Calcium 7.4 mg/dL (7.8-10.44); Carbon Dioxide 19 mmol/L (23-31); Chloride 104 mmol/L (98-107); Glucose 126 mg/dL (83-110); Potassium 3.7 mmol/L (3.5-5.1); Sodium 136 mmol/L (136-145)
[2020-11-05 06:19] LABS: Hemoglobin 12.9 g/dL (14.0-18.0); Lymphocytes 12 % (21-51); MDiff Complete? YES; Mean Corpuscular HGB CONC 33.7 g/dL (32.0-36.0); Mean Corpuscular Hemoglobin 35.2 pg (27.0-31.0); Monocytes 1 % (0-10); Neutrophil 87 % (42-75); Platelet Count 214 thou/uL (130-400); Platelet Morphology Comment Appears Adequate; RBC Distribution Width 15.9 % (11.5-14.5); Red Blood Cell (RBC) Count 3.67 mill/uL (4.70-6.10)
[2020-11-05] MEDS: Benzonatate 100 MG CAP PO PRN (10:26)
[2020-11-05] MEDS: Ascorbic Acid 500 mg Chewable Tablet PO SCH (10:27)
[2020-11-05] MEDS: Cholecalciferol (Vitamin D3) 400 UNITS TAB PO SCH (10:27)
[2020-11-05] MEDS: Pantoprazole 40 MG VIAL IVP SCH (10:28)
[2020-11-05] MEDS: Zinc Sulfate 220 MG CAP PO SCH (10:28)
[2020-11-05] MEDS: guaiFENesin ER 600 MG TAB PO SCH ×2 (10:28→20:20)
[2020-11-05] MEDS: Dexamethasone 4 mg/ml Vial SLOW IVP SCH (10:32)
[2020-11-05] MEDS: Enoxaparin Sodium 40 MG/0.4 ML SYRINGE SC SCH ×2 (10:33→20:19)
[2020-11-06] MEDS: Vancomycin HCl 25 MG/ML Oral PO SCH ×3 (05:39→18:50)
[2020-11-06 07:01] LABS: Anion Gap 21 mmol/L (10-20); BUN (Urea Nitrogen) 12 mg/dL (8.4-25.7); Calc. Creatinine Clearance 102 mL/min (70-130); Calcium 8.2 mg/dL (7.8-10.44); Carbon Dioxide 21 mmol/L (23-31); Chloride 102 mmol/L (98-107); Glucose 107 mg/dL (83-110); Potassium 4.6 mmol/L (3.5-5.1); Sodium 139 mmol/L (136-145)
[2020-11-06 07:11] LABS: Hemoglobin 15.2 g/dL (14.0-18.0); Mean Corpuscular HGB CONC 33.9 g/dL (32.0-36.0); Mean Corpuscular Hemoglobin 36.1 pg (27.0-31.0); Mean Platelet Volume 9.5 fL (7.4-10.4); Platelet Count 293 thou/uL (130-400); Red Blood Cell (RBC) Count 4.22 mill/uL (4.70-6.10); White Blood Cell (WBC) Count 5.9 thou/uL (4.8-10.8)
[2020-11-06 08:46] LABS: Anisocytosis SLIGHT = 6-15 cells (100X) (0-5/hpf); Band 3 % (5-11); Large Platelets SLIGHT; Lymphocytes 12 % (21-51); MDiff Complete? YES; Macrocytosis SLIGHT = 6-15 cells (100X) (0-5/hpf); Monocytes 2 % (0-10); Neutrophil 83 % (42-75); Platelet Morphology Comment Appears Adequate; Polychromasia SLIGHT = 2-3 cells (100X) (0-2/hpf)
[2020-11-06] MEDS: Pantoprazole 40 MG VIAL IVP SCH (09:58)
[2020-11-06] MEDS: Enoxaparin Sodium 40 MG/0.4 ML SYRINGE SC SCH ×2 (09:59→21:23)
[2020-11-06] MEDS: Dexamethasone 4 mg/ml Vial SLOW IVP SCH ×2 (10:00→21:23)
[2020-11-06] MEDS: Benzonatate 100 MG CAP PO PRN (10:01)
[2020-11-06] MEDS: Ascorbic Acid 500 mg Chewable Tablet PO SCH (10:01)
[2020-11-06] MEDS: Cholecalciferol (Vitamin D3) 400 UNITS TAB PO SCH (10:01)
[2020-11-06] MEDS: guaiFENesin ER 600 MG TAB PO SCH ×2 (10:01→21:23)
[2020-11-06] MEDS: Zinc Sulfate 220 MG CAP PO SCH (10:02)
[2020-11-06 12:36] LABS: Actual Bicarbonate (HCO3a) 24.8 mEq/L (22-28); Base Excess (BEa) 3.7 mEq/L (-2.0 to +3.0); Calcium, Ionized (arterial) 1.08 mmol/L (1.12-1.30); Carboxyhemoglobin (COHb) 0.8 gm% (0.0-3.0); Hemoglobin (Hb) 14.3 g/dL (14.0-18.0); Potassium - ABG Lab 3.15 mmol/L (3.70-5.30)
[2020-11-06 12:40] LABS: O2 Tension (PaO2), arterial 47.2 mmHg (> 70.0); Puncture Site RRA; pH, Arterial 7.57 (7.35-7.45)
[2020-11-06] MEDS ORDERED: Pharmacy to Dose BARICITINIB PO PRN (14:21)
[2020-11-06] MEDS: cefTRIAXone\\ROCEPHIN 1 GM in Sodium Chloride 0.9% 100 ML IVPB SCH (15:51)
[2020-11-06] MEDS: Azithromycin 500 MG in Sodium Chloride 0.9% 250 ML 250 ML IVPB SCH (16:36)
[2020-11-06] MEDS ORDERED: Furosemide 40 MG/4 ML VIAL SLOW IVP SCH (17:30)
[2020-11-07] MEDS: Vancomycin HCl 25 MG/ML Oral PO SCH ×5 (00:22→23:35)
[2020-11-07] MEDS: Enoxaparin Sodium 40 MG/0.4 ML SYRINGE SC SCH ×2 (08:20→20:32)
[2020-11-07] MEDS: Dexamethasone 4 mg/ml Vial SLOW IVP SCH ×2 (08:22→20:32)
[2020-11-07] MEDS: Benzonatate 100 MG CAP PO PRN (08:28)
[2020-11-07] MEDS: guaiFENesin ER 600 MG TAB PO SCH ×2 (08:28→20:32)
[2020-11-07] MEDS: Zinc Sulfate 220 MG CAP PO SCH (08:29)
[2020-11-07] MEDS: Ascorbic Acid 500 mg Chewable Tablet PO SCH (08:29)
[2020-11-07] MEDS: Cholecalciferol (Vitamin D3) 400 UNITS TAB PO SCH (08:29)
[2020-11-07] MEDS: Pantoprazole 40 MG VIAL IVP SCH (08:30)
[2020-11-07] MEDS ORDERED: BARICITINIB 2 MG TAB PO SCH (13:30)
[2020-11-07 14:05] LABS: #Lymphocytes 0.3 thou/uL (1.20-3.40); #Monocytes 0.1 thou/uL (0.11-0.59); #Neutrophils 4.6 thou/uL (1.40-6.50); %Eosinophils 0.4 % (0.0-10.0); %Lymphocytes 5.6 % (21.0-51.0); %Monocytes 0.9 % (0.0-10.0); %Neutrophils 93.1 % (42.0-75.0); Hemoglobin 14.7 g/dL (14.0-18.0); Mean Corpuscular HGB CONC 33.2 g/dL (32.0-36.0); Mean Corpuscular Hemoglobin 35.1 pg (27.0-31.0); Mean Platelet Volume 9.8 fL (7.4-10.4); Platelet Count 220 thou/uL (130-400); RBC Distribution Width 16.1 % (11.5-14.5); Red Blood Cell (RBC) Count 4.19 mill/uL (4.70-6.10)
[2020-11-07 14:21] LABS: Anion Gap 13 mmol/L (10-20); BUN (Urea Nitrogen) 19 mg/dL (8.4-25.7); Calc. Creatinine Clearance 111 mL/min (70-130); Calcium 7.9 mg/dL (7.8-10.44); Carbon Dioxide 27 mmol/L (23-31); Chloride 101 mmol/L (98-107); Glucose 135 mg/dL (83-110); Potassium 3.4 mmol/L (3.5-5.1); Sodium 138 mmol/L (136-145)
[2020-11-07] MEDS: cefTRIAXone\\ROCEPHIN 1 GM in Sodium Chloride 0.9% 100 ML IVPB SCH (14:45)
[2020-11-07] MEDS: Azithromycin 500 MG in Sodium Chloride 0.9% 250 ML 250 ML IVPB SCH (15:25)
[2020-11-08 05:25] LABS: #Lymphocytes 0.6 thou/uL (1.20-3.40); #Monocytes 0.1 thou/uL (0.11-0.59); #Neutrophils 3.7 thou/uL (1.40-6.50); %Basophils 0.1 % (0.0-1.0); %Lymphocytes 13.1 % (21.0-51.0); %Monocytes 1.1 % (0.0-10.0); %Neutrophils 85.6 % (42.0-75.0); Mean Corpuscular HGB CONC 33.4 g/dL (32.0-36.0); Mean Corpuscular Hemoglobin 35.2 pg (27.0-31.0); Mean Platelet Volume 9.5 fL (7.4-10.4); Platelet Count 241 thou/uL (130-400); RBC Distribution Width 15.8 % (11.5-14.5); Red Blood Cell (RBC) Count 3.68 mill/uL (4.70-6.10); White Blood Cell (WBC) Count 4.3 thou/uL (4.8-10.8)
[2020-11-08 05:38] LABS: Anion Gap 11 mmol/L (10-20); BUN (Urea Nitrogen) 19 mg/dL (8.4-25.7); Calc. Creatinine Clearance 120 mL/min (70-130); Calcium 7.3 mg/dL (7.8-10.44); Carbon Dioxide 28 mmol/L (23-31); Chloride 104 mmol/L (98-107); Glucose 135 mg/dL (83-110); Potassium 3.4 mmol/L (3.5-5.1); Sodium 140 mmol/L (136-145)
[2020-11-08] MEDS: Vancomycin HCl 25 MG/ML Oral PO SCH ×3 (05:54→18:47)
[2020-11-08] MEDS: Potassium Chloride 20 MEQ in Premix Bag 1 BAG IVPB SCH ×3 (07:52→12:00)
[2020-11-08] MEDS: BARICITINIB 2 MG TAB PO SCH (07:53)
[2020-11-08] MEDS: guaiFENesin ER 600 MG TAB PO SCH ×2 (07:53→21:11)
[2020-11-08] MEDS: Ascorbic Acid 500 mg Chewable Tablet PO SCH (07:53)
[2020-11-08] MEDS: Enoxaparin Sodium 40 MG/0.4 ML SYRINGE SC SCH ×2 (07:53→21:11)
[2020-11-08] MEDS: Pantoprazole 40 MG VIAL IVP SCH (07:54)
[2020-11-08] MEDS: Cholecalciferol (Vitamin D3) 400 UNITS TAB PO SCH (07:54)
[2020-11-08] MEDS: Dexamethasone 4 mg/ml Vial SLOW IVP SCH ×2 (07:54→21:11)
[2020-11-08] MEDS: Zinc Sulfate 220 MG CAP PO SCH (07:55)
[2020-11-08] MEDS ORDERED: Potassium Chloride 20 MEQ TAB PO SCH (09:15)
[2020-11-08 14:41] LABS: Potassium 3.8 mmol/L (3.5-5.1)
[2020-11-08] MEDS: cefTRIAXone\\ROCEPHIN 1 GM in Sodium Chloride 0.9% 100 ML IVPB SCH (15:43)
[2020-11-08] MEDS: Azithromycin 500 MG in Sodium Chloride 0.9% 250 ML 250 ML IVPB SCH (16:51)
[2020-11-09] MEDS: Vancomycin HCl 25 MG/ML Oral PO SCH ×2 (01:33→15:12)
[2020-11-09] MEDS: Benzonatate 100 MG CAP PO PRN ×2 (10:05→15:14)
[2020-11-09] MEDS: Ascorbic Acid 500 mg Chewable Tablet PO SCH (10:05)
[2020-11-09] MEDS: BARICITINIB 2 MG TAB PO SCH (10:06)
[2020-11-09] MEDS: Dexamethasone 4 mg/ml Vial SLOW IVP SCH ×2 (10:06→21:30)
[2020-11-09] MEDS: Cholecalciferol (Vitamin D3) 400 UNITS TAB PO SCH (10:07)
[2020-11-09] MEDS: guaiFENesin ER 600 MG TAB PO SCH ×2 (10:07→21:31)
[2020-11-09] MEDS: Zinc Sulfate 220 MG CAP PO SCH (10:07)
[2020-11-09] MEDS: Enoxaparin Sodium 40 MG/0.4 ML SYRINGE SC SCH ×2 (10:07→21:31)
[2020-11-09] MEDS: Pantoprazole 40 MG VIAL IVP SCH (10:08)
[2020-11-09] MEDS ORDERED: LACTINEX 1 TAB PO SCH (13:30)
[2020-11-09] MEDS: cefTRIAXone\\ROCEPHIN 1 GM in Sodium Chloride 0.9% 100 ML IVPB SCH (15:12)
[2020-11-09] MEDS: Azithromycin 500 MG in Sodium Chloride 0.9% 250 ML 250 ML IVPB SCH (16:09)
[2020-11-09] MEDS: LACTINEX 1 TAB PO SCH (21:34)
[2020-11-10 05:41] LABS: Anion Gap 11 mmol/L (10-20); BUN (Urea Nitrogen) 18 mg/dL (8.4-25.7); Calc. Creatinine Clearance 126 mL/min (70-130); Calcium 7.2 mg/dL (7.8-10.44); Carbon Dioxide 25 mmol/L (23-31); Chloride 104 mmol/L (98-107); Glucose 125 mg/dL (83-110); Potassium 4.3 mmol/L (3.5-5.1); Sodium 136 mmol/L (136-145)
[2020-11-10 08:16] LABS: #Basophils 0.1 thou/uL (0.0-0.2); #Lymphocytes 0.4 thou/uL (1.20-3.40); #Monocytes 0.1 thou/uL (0.11-0.59); #Neutrophils 4.1 thou/uL (1.40-6.50); %Basophils 1.5 % (0.0-1.0); %Eosinophils 0.3 % (0.0-10.0); %Lymphocytes 8.5 % (21.0-51.0); %Monocytes 1.3 % (0.0-10.0); %Neutrophils 88.4 % (42.0-75.0); Hemoglobin 13.1 g/dL (14.0-18.0); MDiff Complete? YES; Mean Corpuscular HGB CONC 32.5 g/dL (32.0-36.0); Mean Corpuscular Hemoglobin 34.4 pg (27.0-31.0); Mean Platelet Volume 10.1 fL (7.4-10.4); Platelet Count 180 thou/uL (130-400); Platelet Morphology Comment Appears Adequate; RBC Distribution Width 15.9 % (11.5-14.5); White Blood Cell (WBC) Count 4.6 thou/uL (4.8-10.8)
[2020-11-10] MEDS: LACTINEX 1 TAB PO SCH ×2 (10:38→20:31)
[2020-11-10] MEDS: BARICITINIB 2 MG TAB PO SCH (10:39)
[2020-11-10] MEDS: Cholecalciferol (Vitamin D3) 400 UNITS TAB PO SCH (10:39)
[2020-11-10] MEDS: Benzonatate 100 MG CAP PO PRN (10:39)
[2020-11-10] MEDS: Dexamethasone 4 mg/ml Vial SLOW IVP SCH ×2 (10:40→20:33)
[2020-11-10] MEDS: Ascorbic Acid 500 mg Chewable Tablet PO SCH (10:40)
[2020-11-10] MEDS: guaiFENesin ER 600 MG TAB PO SCH ×2 (10:40→20:31)
[2020-11-10] MEDS: Zinc Sulfate 220 MG CAP PO SCH (10:42)
[2020-11-10] MEDS: Enoxaparin Sodium 40 MG/0.4 ML SYRINGE SC SCH ×2 (10:42→20:32)
[2020-11-10] MEDS: Pantoprazole 40 MG VIAL IVP SCH (10:42)
[2020-11-10] MEDS: Vancomycin HCl 25 MG/ML Oral PO SCH ×2 (13:01→19:00)
[2020-11-10] MEDS: cefTRIAXone\\ROCEPHIN 1 GM in Sodium Chloride 0.9% 100 ML IVPB SCH (16:26)
[2020-11-10] MEDS: Azithromycin 500 MG in Sodium Chloride 0.9% 250 ML 250 ML IVPB SCH (16:48)
[2020-11-11] MEDS: Vancomycin HCl 25 MG/ML Oral PO SCH ×7 (00:25→18:56)
[2020-11-11] MEDS: Ascorbic Acid 500 mg Chewable Tablet PO SCH (10:06)
[2020-11-11] MEDS: LACTINEX 1 TAB PO SCH ×2 (10:06→21:11)
[2020-11-11] MEDS: BARICITINIB 2 MG TAB PO SCH (10:07)
[2020-11-11] MEDS: Benzonatate 100 MG CAP PO PRN (10:07)
[2020-11-11] MEDS: Zinc Sulfate 220 MG CAP PO SCH (10:08)
[2020-11-11] MEDS: Enoxaparin Sodium 40 MG/0.4 ML SYRINGE SC SCH ×2 (10:08→21:11)
[2020-11-11] MEDS: guaiFENesin ER 600 MG TAB PO SCH ×2 (10:08→21:11)
[2020-11-11] MEDS: Dexamethasone 4 mg/ml Vial SLOW IVP SCH ×2 (10:09→21:11)
[2020-11-11] MEDS: Cholecalciferol (Vitamin D3) 400 UNITS TAB PO SCH (10:09)
[2020-11-11] MEDS: Pantoprazole 40 MG VIAL IVP SCH (10:11)
[2020-11-11] MEDS: cefTRIAXone\\ROCEPHIN 1 GM in Sodium Chloride 0.9% 100 ML IVPB SCH (14:20)
[2020-11-11] MEDS: Azithromycin 500 MG in Sodium Chloride 0.9% 250 ML 250 ML IVPB SCH (15:54)
[2020-11-12] MEDS: Vancomycin HCl 25 MG/ML Oral PO SCH ×8 (00:54→19:26)
[2020-11-12] MEDS: Ascorbic Acid 500 mg Chewable Tablet PO SCH (10:05)
[2020-11-12] MEDS: BARICITINIB 2 MG TAB PO SCH (10:05)
[2020-11-12] MEDS: guaiFENesin ER 600 MG TAB PO SCH ×2 (10:06→21:50)
[2020-11-12] MEDS: Enoxaparin Sodium 40 MG/0.4 ML SYRINGE SC SCH ×2 (10:06→21:50)
[2020-11-12] MEDS: LACTINEX 1 TAB PO SCH ×2 (10:06→22:00)
[2020-11-12] MEDS: Cholecalciferol (Vitamin D3) 400 UNITS TAB PO SCH (10:06)
[2020-11-12] MEDS: Zinc Sulfate 220 MG CAP PO SCH (10:07)
[2020-11-12] MEDS: Dexamethasone 4 mg/ml Vial SLOW IVP SCH ×2 (10:07→21:50)
[2020-11-12] MEDS ORDERED: Fluticasone Propionate Nasal Spray 16 gm Bottle NASAL SCH (18:00)
[2020-11-12] MEDS: Mometasone 100 MCG/Formoterol 5 MCG 120 PUFF INHALER INH SCH (19:23)
[2020-11-13 05:59] LABS: ALT (SGPT) 245 U/L (8-55); AST (SGOT) 65 U/L (5-34); Albumin 2.6 g/dL (3.4-4.8); Alkaline Phosphatase 111 U/L (40-110); Anion Gap 11 mmol/L (10-20); BUN (Urea Nitrogen) 18 mg/dL (8.4-25.7); Bilirubin, Direct 0.4 mg/dL (0.1-0.3); Bilirubin, Total 0.8 mg/dL (0.2-1.2); Calc. Creatinine Clearance 131 mL/min (70-130); Calcium 7.7 mg/dL (7.8-10.44); Carbon Dioxide 24 mmol/L (23-31); Chloride 106 mmol/L (98-107); Glucose 112 mg/dL (83-110); Magnesium 1.8 mg/dL (1.6-2.6); Potassium 5.1 mmol/L (3.5-5.1); Protein, Total 4.7 g/dL (5.8-8.1); Sodium 136 mmol/L (136-145)
[2020-11-13 06:39] LABS: Troponin I Less than 0.010 ng/mL (< 0.028)
[2020-11-13] MEDS: Mometasone 100 MCG/Formoterol 5 MCG 120 PUFF INHALER INH SCH ×2 (06:50→17:40)
[2020-11-13] MEDS ORDERED: Magnesium 2 GM/50 ML 2 GM in Premix Bag 1 BAG IVPB SCH (07:00)
[2020-11-13] MEDS: LACTINEX 1 TAB PO SCH ×2 (09:19→21:28)
[2020-11-13] MEDS: Ascorbic Acid 500 mg Chewable Tablet PO SCH (09:20)
[2020-11-13] MEDS: BARICITINIB 2 MG TAB PO SCH (09:20)
[2020-11-13] MEDS: guaiFENesin ER 600 MG TAB PO SCH ×2 (09:21→21:27)
[2020-11-13] MEDS: Zinc Sulfate 220 MG CAP PO SCH (09:21)
[2020-11-13] MEDS: Dexamethasone 4 mg/ml Vial SLOW IVP SCH (09:22)
[2020-11-13] MEDS: Cholecalciferol (Vitamin D3) 400 UNITS TAB PO SCH (09:22)
[2020-11-13] MEDS: Enoxaparin Sodium 40 MG/0.4 ML SYRINGE SC SCH ×2 (09:23→21:28)
[2020-11-13] MEDS: Vancomycin HCl 25 MG/ML Oral PO SCH ×4 (09:24→21:30)
[2020-11-13] MEDS: Fluticasone Propionate Nasal Spray 16 gm Bottle NASAL SCH (09:25)
[2020-11-14] MEDS: Vancomycin HCl 25 MG/ML Oral PO SCH ×4 (04:02→20:54)
[2020-11-14] MEDS: Mometasone 100 MCG/Formoterol 5 MCG 120 PUFF INHALER INH SCH ×2 (07:59→17:52)
[2020-11-14] MEDS: Cholecalciferol (Vitamin D3) 400 UNITS TAB PO SCH (10:06)
[2020-11-14] MEDS: Ascorbic Acid 500 mg Chewable Tablet PO SCH (10:07)
[2020-11-14] MEDS: Zinc Sulfate 220 MG CAP PO SCH (10:07)
[2020-11-14] MEDS: Benzonatate 100 MG CAP PO PRN (10:07)
[2020-11-14] MEDS: BARICITINIB 2 MG TAB PO SCH (10:08)
[2020-11-14] MEDS: LACTINEX 1 TAB PO SCH ×2 (10:08→20:54)
[2020-11-14] MEDS: Enoxaparin Sodium 40 MG/0.4 ML SYRINGE SC SCH ×2 (10:09→20:54)
[2020-11-14] MEDS: Dexamethasone 4 MG TAB PO SCH (10:09)
[2020-11-14] MEDS: guaiFENesin ER 600 MG TAB PO SCH ×2 (10:10→20:55)
[2020-11-14] MEDS: Fluticasone Propionate Nasal Spray 16 gm Bottle NASAL SCH (10:11)
[2020-11-14 11:22] LABS: #Eosinphils 0.1 thou/uL (0.0-0.7); #Lymphocytes 0.7 thou/uL (1.20-3.40); #Monocytes 0.1 thou/uL (0.11-0.59); #Neutrophils 8.7 thou/uL (1.40-6.50); %Basophils 0.1 % (0.0-1.0); %Lymphocytes 7.3 % (21.0-51.0); %Monocytes 0.8 % (0.0-10.0); %Neutrophils 90.8 % (42.0-75.0); Mean Corpuscular HGB CONC 33.7 g/dL (32.0-36.0); Mean Corpuscular Hemoglobin 36.4 pg (27.0-31.0); Mean Platelet Volume 11.7 fL (7.4-10.4); Platelet Count 142 thou/uL (130-400); RBC Distribution Width 15.9 % (11.5-14.5); Red Blood Cell (RBC) Count 3.85 mill/uL (4.70-6.10); White Blood Cell (WBC) Count 9.5 thou/uL (4.8-10.8)
[2020-11-14 11:50] LABS: Anion Gap 11 mmol/L (10-20); BUN (Urea Nitrogen) 16 mg/dL (8.4-25.7); Calc. Creatinine Clearance 111 mL/min (70-130); Calcium 7.7 mg/dL (7.8-10.44); Carbon Dioxide 26 mmol/L (23-31); Chloride 103 mmol/L (98-107); Glucose 87 mg/dL (83-110); Potassium 4.1 mmol/L (3.5-5.1); Sodium 136 mmol/L (136-145)
[2020-11-15] MEDS: Vancomycin HCl 25 MG/ML Oral PO SCH ×4 (04:00→21:20)
[2020-11-15 06:20] LABS: #Eosinphils 0.1 thou/uL (0.0-0.7); #Lymphocytes 0.6 thou/uL (1.20-3.40); #Monocytes 0.1 thou/uL (0.11-0.59); #Neutrophils 6.5 thou/uL (1.40-6.50); %Basophils 0.1 % (0.0-1.0); %Eosinophils 1.2 % (0.0-10.0); %Lymphocytes 7.6 % (21.0-51.0); %Monocytes 1.8 % (0.0-10.0); %Neutrophils 89.3 % (42.0-75.0); Hemoglobin 13.5 g/dL (14.0-18.0); Mean Corpuscular Hemoglobin 36.7 pg (27.0-31.0); Platelet Count 134 thou/uL (130-400); RBC Distribution Width 15.9 % (11.5-14.5); Red Blood Cell (RBC) Count 3.68 mill/uL (4.70-6.10); White Blood Cell (WBC) Count 7.3 thou/uL (4.8-10.8)
[2020-11-15] MEDS: Mometasone 100 MCG/Formoterol 5 MCG 120 PUFF INHALER INH SCH ×2 (06:21→16:51)
[2020-11-15 06:40] LABS: Anion Gap 9 mmol/L (10-20); BUN (Urea Nitrogen) 17 mg/dL (8.4-25.7); Calc. Creatinine Clearance 129 mL/min (70-130); Carbon Dioxide 27 mmol/L (23-31); Chloride 104 mmol/L (98-107); Glucose 71 mg/dL (83-110); Potassium 4.6 mmol/L (3.5-5.1); Sodium 135 mmol/L (136-145)
[2020-11-15] MEDS: LACTINEX 1 TAB PO SCH ×2 (09:23→21:20)
[2020-11-15] MEDS: BARICITINIB 2 MG TAB PO SCH (09:24)
[2020-11-15] MEDS: Ascorbic Acid 500 mg Chewable Tablet PO SCH (09:24)
[2020-11-15] MEDS: Cholecalciferol (Vitamin D3) 400 UNITS TAB PO SCH (09:25)
[2020-11-15] MEDS: Dexamethasone 4 MG TAB PO SCH (09:25)
[2020-11-15] MEDS: guaiFENesin ER 600 MG TAB PO SCH ×2 (09:26→21:18)
[2020-11-15] MEDS: Enoxaparin Sodium 40 MG/0.4 ML SYRINGE SC SCH ×2 (09:26→21:18)
[2020-11-15] MEDS: Fluticasone Propionate Nasal Spray 16 gm Bottle NASAL SCH (09:27)
[2020-11-15] MEDS: Zinc Sulfate 220 MG CAP PO SCH (09:27)
[2020-11-15 14:46] LABS: ALT (SGPT) 207 U/L (8-55); AST (SGOT) 54 U/L (5-34); Albumin 2.6 g/dL (3.4-4.8); Alkaline Phosphatase 124 U/L (40-110); Bilirubin, Direct 0.4 mg/dL (0.1-0.3); Bilirubin, Total 0.8 mg/dL (0.2-1.2); Protein, Total 4.7 g/dL (5.8-8.1)
[2020-11-16 05:43] LABS: ALT (SGPT) 212 U/L (8-55); AST (SGOT) 58 U/L (5-34); Albumin 2.5 g/dL (3.4-4.8); Alkaline Phosphatase 129 U/L (40-110); Bilirubin, Direct 0.3 mg/dL (0.1-0.3); Bilirubin, Total 0.6 mg/dL (0.2-1.2)
[2020-11-16] MEDS: Mometasone 100 MCG/Formoterol 5 MCG 120 PUFF INHALER INH SCH ×2 (06:24→18:09)
[2020-11-16] MEDS: Enoxaparin Sodium 40 MG/0.4 ML SYRINGE SC SCH ×2 (09:14→20:38)
[2020-11-16] MEDS: Ascorbic Acid 500 mg Chewable Tablet PO SCH (09:15)
[2020-11-16] MEDS: Cholecalciferol (Vitamin D3) 400 UNITS TAB PO SCH (09:15)
[2020-11-16] MEDS: Zinc Sulfate 220 MG CAP PO SCH (09:16)
[2020-11-16] MEDS: Dexamethasone 4 MG TAB PO SCH (09:16)
[2020-11-16] MEDS: guaiFENesin ER 600 MG TAB PO SCH ×2 (09:16→20:38)
[2020-11-16] MEDS: LACTINEX 1 TAB PO SCH ×2 (09:16→21:25)
[2020-11-16] MEDS: Fluticasone Propionate Nasal Spray 16 gm Bottle NASAL SCH (09:17)
[2020-11-17] MEDS: Mometasone 100 MCG/Formoterol 5 MCG 120 PUFF INHALER INH SCH ×2 (06:23→18:46)
[2020-11-17] MEDS: Dexamethasone 4 MG TAB PO SCH (08:53)
[2020-11-17] MEDS: Fluticasone Propionate Nasal Spray 16 gm Bottle NASAL SCH (08:54)
[2020-11-17] MEDS: Cholecalciferol (Vitamin D3) 400 UNITS TAB PO SCH (08:54)
[2020-11-17] MEDS: Zinc Sulfate 220 MG CAP PO SCH (08:54)
[2020-11-17] MEDS: Enoxaparin Sodium 40 MG/0.4 ML SYRINGE SC SCH ×2 (08:54→21:31)
[2020-11-17] MEDS: Ascorbic Acid 500 mg Chewable Tablet PO SCH (08:54)
[2020-11-17] MEDS: guaiFENesin ER 600 MG TAB PO SCH ×2 (08:55→21:31)
[2020-11-17] MEDS: LACTINEX 1 TAB PO SCH ×2 (09:01→21:34)
[2020-11-18 06:06] LABS: #Eosinphils 0.1 thou/uL (0.0-0.7); #Lymphocytes 0.8 thou/uL (1.20-3.40); #Monocytes 0.3 thou/uL (0.11-0.59); #Neutrophils 5.7 thou/uL (1.40-6.50); %Basophils 0.2 % (0.0-1.0); %Eosinophils 1.6 % (0.0-10.0); %Lymphocytes 11.8 % (21.0-51.0); %Monocytes 4.5 % (0.0-10.0); %Neutrophils 81.9 % (42.0-75.0); Hemoglobin 14.2 g/dL (14.0-18.0); Mean Corpuscular HGB CONC 33.6 g/dL (32.0-36.0); Mean Corpuscular Hemoglobin 36.3 pg (27.0-31.0); Mean Platelet Volume 10.3 fL (7.4-10.4); Platelet Count 182 thou/uL (130-400); RBC Distribution Width 15.8 % (11.5-14.5); Red Blood Cell (RBC) Count 3.91 mill/uL (4.70-6.10)
[2020-11-18] MEDS: Mometasone 100 MCG/Formoterol 5 MCG 120 PUFF INHALER INH SCH ×2 (06:11→17:47)
[2020-11-18 06:27] LABS: ALT (SGPT) 191 U/L (8-55); AST (SGOT) 48 U/L (5-34); Albumin 2.8 g/dL (3.4-4.8); Alkaline Phosphatase 149 U/L (40-110); Anion Gap 11 mmol/L (10-20); BUN (Urea Nitrogen) 19 mg/dL (8.4-25.7); Calc. Creatinine Clearance 118 mL/min (70-130); Calcium 8.6 mg/dL (7.8-10.44); Carbon Dioxide 25 mmol/L (23-31); Chloride 104 mmol/L (98-107); Globulin 2.4 g/dL (2.4-3.5); Glucose 85 mg/dL (83-110); Potassium 4.3 mmol/L (3.5-5.1); Protein, Total 5.2 g/dL (5.8-8.1); Sodium 136 mmol/L (136-145)
[2020-11-18] MEDS: Cholecalciferol (Vitamin D3) 400 UNITS TAB PO SCH (09:10)
[2020-11-18] MEDS: Ascorbic Acid 500 mg Chewable Tablet PO SCH (09:10)
[2020-11-18] MEDS: Fluticasone Propionate Nasal Spray 16 gm Bottle NASAL SCH (09:11)
[2020-11-18] MEDS: guaiFENesin ER 600 MG TAB PO SCH ×2 (09:11→21:26)
[2020-11-18] MEDS: Enoxaparin Sodium 40 MG/0.4 ML SYRINGE SC SCH ×2 (09:11→21:26)
[2020-11-18] MEDS: LACTINEX 1 TAB PO SCH ×2 (09:11→21:26)
[2020-11-18] MEDS: Zinc Sulfate 220 MG CAP PO SCH (09:12)
[2020-11-19] MEDS: Mometasone 100 MCG/Formoterol 5 MCG 120 PUFF INHALER INH SCH (06:27)
[2020-11-19 07:40] LABS: ALT (SGPT) 182 U/L (8-55); AST (SGOT) 49 U/L (5-34); Albumin 2.8 g/dL (3.4-4.8); Alkaline Phosphatase 166 U/L (40-110); Bilirubin, Direct 0.5 mg/dL (0.1-0.3); Protein, Total 5.7 g/dL (5.8-8.1)
[2020-11-19 09:18] VITALS: TEMP 97.8
[2020-11-19] MEDS: Zinc Sulfate 220 MG CAP PO SCH (09:49)
[2020-11-19] MEDS: guaiFENesin ER 600 MG TAB PO SCH (09:49)
[2020-11-19] MEDS: Cholecalciferol (Vitamin D3) 400 UNITS TAB PO SCH (09:49)
[2020-11-19] MEDS: Benzonatate 100 MG CAP PO PRN (09:50)
[2020-11-19] MEDS: Ascorbic Acid 500 mg Chewable Tablet PO SCH (09:50)
[2020-11-19] MEDS: LACTINEX 1 TAB PO SCH (09:50)
[2020-11-19] MEDS: Enoxaparin Sodium 40 MG/0.4 ML SYRINGE SC SCH (09:50)
[2020-11-19] MEDS: Fluticasone Propionate Nasal Spray 16 gm Bottle NASAL SCH (13:41)
[2020-11-19] MEDS ORDERED: Nystatin 500,000 UNITS/5 ML UDCUP SSW SCH (15:30)
[2020-11-19 15:47] VITALS: BP 107/61
== END 2020-11-19 15:42 | DRG 177 ==
LOC: ERS 18:09 → 2SW 20:41 → OBSVTOIN 10-30 17:35
PROVIDERS: ADMIT Student in an Organized Health Care Education/Training Program; ATTEND Internal Medicine
PROC: 8E0ZXY6 Isolation (ICD-10-PCS; principal; 2020-10-30)
PROC: 3E0333Z Introduction of Anti-inflammatory into Peripheral Vein, Percutaneous Approach (ICD-10-PCS; 2020-11-04)
PROC: XW0DXM6 Introduction of Baricitinib into Mouth and Pharynx, External Approach, New Technology Group 6 (ICD-10-PCS; 2020-11-07)
DX: U07.1 COVID-19 (principal); J12.82 Pneumonia due to coronavirus disease 2019; J96.01 Acute respiratory failure with hypoxia; G93.41 Metabolic encephalopathy; C90.00 Multiple myeloma not having achieved remission; D84.821 Immunodeficiency due to drugs; A04.72 Enterocolitis due to Clostridium difficile, not specified as recurrent; E87.6 Hypokalemia; E83.42 Hypomagnesemia; R74.01 Elevation of levels of liver transaminase levels; I10 Essential (primary) hypertension; Z85.828 Personal history of other malignant neoplasm of skin; Z79.899 Other long term (current) drug therapy; Z98.890 Other specified postprocedural states; Z87.891 Personal history of nicotine dependence; Z79.82 Long term (current) use of aspirin; R00.1 Bradycardia, unspecified
CPT/HCPCS: 36415; 36416; 36600; 71045; 71275; 80048; 80053; 80076; 81003; 81015; 82553; 82728; 82805; 83735; 83880; 84145; 84484; 85025; 86140; 87040; 87070; 87205; 87324; 87449; 87493; 87899; 93005; 96372; 96375; C9113; G0378; J0456; J0692; J0696; J1100; J1650; J1815; J1940; J3475; J3480; J3490; J7050; J8540; Q9967

== ENCOUNTER 2021-01-20 05:21 | Inpatient (IN) | payer MEDICARE, BC ==
[2021-01-20] MEDS ORDERED: Potassium Chloride 20 MEQ in Premix Bag 1 BAG IVPB SCH (09:00)
[2021-01-20] MEDS ORDERED: Magnesium 2 GM/50 ML BAG (IN WATER) ONE (09:01)
[2021-01-20] MEDS ORDERED: Acetaminophen 325 MG TAB PO PRN (09:30)
[2021-01-20] MEDS ORDERED: Ondansetron PF 4 MG/2 ML Vial IVP PRN (09:30)
[2021-01-20] MEDS ORDERED: Calcium Carbonate 500 MG ChewTAB PO PRN (09:30)
[2021-01-20] MEDS ORDERED: Hydrocerin (Eucerin) Cream 120 gm Jar TOP PRN (09:30)
[2021-01-20] MEDS ORDERED: HYDROcodone/Acetaminophen 5/325 mg Tablet PO PRN (09:30)
[2021-01-20] MEDS ORDERED: Artificial Tear Sol 15 ML BOT EA EYE PRN (09:30)
[2021-01-20] MEDS ORDERED: hydrALAZINE 20 MG/ML VIAL SLOW IVP PRN (09:30)
[2021-01-20] MEDS ORDERED: Ondansetron ODT 4 MG TAB PO PRN (09:30)
[2021-01-20] MEDS ORDERED: Loratadine 10 MG TAB PO PRN (09:30)
[2021-01-20] MEDS ORDERED: Sodium Chloride 0.65% Nasal 44 ML BOT EA NARE PRN (09:30)
[2021-01-20] MEDS ORDERED: Guaifenesin DM 100-10/5 ML UDCUP PO PRN (09:30)
[2021-01-20] MEDS ORDERED: Cepastat Lozenges 1 LOZ PO PRN (09:30)
[2021-01-20] MEDS ORDERED: Melatonin 3 MG TAB PO PRN (09:33)
[2021-01-20] MEDS ORDERED: 1/2 NS w/KCL 20 mEq 1,000 ML IV SCH (09:45)
[2021-01-20 10:53] LABS: Calcium 6.4 mg/dL (7.8-10.44); Chloride 111 mmol/L (98-107); Sodium 144 mmol/L (136-145)
[2021-01-20 10:54] LABS: Glucose 92 mg/dL (83-110)
[2021-01-20 10:55] LABS: Anion Gap 12 mmol/L (10-20); Carbon Dioxide 24 mmol/L (23-31)
[2021-01-20 10:57] LABS: Calc. Creatinine Clearance 0 mL/min (70-130)
[2021-01-20 10:58] LABS: BUN (Urea Nitrogen) 6 mg/dL (8.4-25.7)
[2021-01-20] MEDS: metroNIDAZOLE 500 MG TAB PO SCH ×2 (11:22→17:52)
[2021-01-20 11:43] VITALS: BMI 25.0
[2021-01-20] MEDS ORDERED: Sodium Chloride 0.9% 1,000 ML IV SCH (11:45)
[2021-01-20] MEDS: Potassium Bicarbonate/Cit Ac 20 MEQ TAB PO SCH ×2 (13:02→15:36)
[2021-01-20] MEDS ORDERED: Iopamidol-370 76% 500 ML 1 ML ONE (13:18)
[2021-01-20] MEDS: Cefepime 1 GM in Sodium Chloride 0.9% 100 ML IVPB SCH (13:53)
[2021-01-20] MEDS ORDERED: metroNIDAZOLE 500 MG in Premix Bag 1 BAG IVPB SCH (14:00)
[2021-01-20] MEDS: VANCOMYCIN 1.25 GM/250 ML BAG 1.25 GM in Premix Bag 1 BAG IVPB SCH (16:17)
[2021-01-20] MEDS: Mometasone 100 MCG/Formoterol 5 MCG 120 PUFF INHALER INH SCH (18:25)
[2021-01-20] MEDS: Vancomycin 25 MG/ML Oral SOLN PO SCH (18:43)
[2021-01-20] MEDS: Famotidine 20 MG TAB PO SCH (21:29)
[2021-01-21] MEDS: Vancomycin 25 MG/ML Oral SOLN PO SCH ×4 (01:32→16:40)
[2021-01-21] MEDS: metroNIDAZOLE 500 MG TAB PO SCH ×3 (01:32→16:39)
[2021-01-21] MEDS: Cefepime 1 GM in Sodium Chloride 0.9% 100 ML IVPB SCH (03:18)
[2021-01-21] MEDS: VANCOMYCIN 1.25 GM/250 ML BAG 1.25 GM in Premix Bag 1 BAG IVPB SCH ×2 (03:50→15:51)
[2021-01-21 04:03] LABS: #Eosinphils 0.3 thou/uL (0.0-0.7); #Lymphocytes 0.9 thou/uL (1.20-3.40); #Monocytes 0.1 thou/uL (0.11-0.59); #Neutrophils 3.4 thou/uL (1.40-6.50); %Basophils 0.6 % (0.0-1.0); %Eosinophils 6.5 % (0.0-10.0); %Lymphocytes 18.9 % (21.0-51.0); %Monocytes 2.9 % (0.0-10.0); %Neutrophils 71.1 % (42.0-75.0); Hemoglobin 10.7 g/dL (14.0-18.0); Mean Corpuscular Hemoglobin 35.5 pg (27.0-31.0); Mean Platelet Volume 9.2 fL (7.4-10.4); Platelet Count 194 thou/uL (130-400); RBC Distribution Width 15.2 % (11.5-14.5); White Blood Cell (WBC) Count 4.7 thou/uL (4.8-10.8)
[2021-01-21 04:21] LABS: Lactic Acid 0.8 mmol/L (0.5-2.2)
[2021-01-21 04:26] LABS: ALT (SGPT) 249 U/L (8-55); AST (SGOT) 148 U/L (5-34); Albumin 2.4 g/dL (3.4-4.8); Alkaline Phosphatase 120 U/L (40-110); Anion Gap 9 mmol/L (10-20); BUN (Urea Nitrogen) 5 mg/dL (8.4-25.7); Bilirubin, Total 0.8 mg/dL (0.2-1.2); Calc. Creatinine Clearance 113 mL/min (70-130); Calcium 6.3 mg/dL (7.8-10.44); Carbon Dioxide 25 mmol/L (23-31); Chloride 109 mmol/L (98-107); Globulin 2.2 g/dL (2.4-3.5); Glucose 86 mg/dL (83-110); Magnesium 1.2 mg/dL (1.6-2.6); Protein, Total 4.6 g/dL (5.8-8.1); Sodium 140 mmol/L (136-145)
[2021-01-21] MEDS ORDERED: Electrolyte Replacement Protocol 1 EACH FS PRN (05:35)
[2021-01-21] MEDS ORDERED: Potassium Chloride 20 MEQ TAB PO SCH (05:45)
[2021-01-21] MEDS: PHOS-NAK 1 PKT PACK PO SCH ×2 (05:53→08:34)
[2021-01-21] MEDS: Magnesium 2 GM/50 ML 2 GM in Premix Bag 1 BAG IVPB SCH ×2 (05:54→07:47)
[2021-01-21] MEDS: Mometasone 100 MCG/Formoterol 5 MCG 120 PUFF INHALER INH SCH ×2 (07:08→18:45)
[2021-01-21] MEDS: Aspirin 81 mg Enteric Coated Tablet PO SCH (08:31)
[2021-01-21] MEDS: Famotidine 20 MG TAB PO SCH ×2 (08:33→20:04)
[2021-01-21] MEDS: Saccharomyces boulardii 250 MG CAP PO SCH (08:34)
[2021-01-21] MEDS: Cholecalciferol 1,000 UNITS (25 MCG) TAB PO SCH (08:43)
[2021-01-21] MEDS ORDERED: Enoxaparin Sodium 40 MG/0.4 ML SYRINGE SC SCH (09:00)
[2021-01-21 14:28] LABS: Vancomycin, Trough 16.7 ug/mL
[2021-01-21] MEDS: Cefepime 2 GM in Sodium Chloride 0.9% 100 ML IVPB SCH (15:32)
[2021-01-21 18:04] LABS: Magnesium 1.9 mg/dL (1.6-2.6)
[2021-01-21 18:34] LABS: Ferritin 1138.9 ng/mL (22-322)
[2021-01-21 18:35] LABS: Thyroid Stimulating Hormone 1.2846 uIU/mL (0.35-4.94)
[2021-01-21] MEDS: Enoxaparin Sodium 80 MG/0.8 ML SYRINGE SC SCH (20:04)
[2021-01-21] MEDS: Atorvastatin Calcium 20 MG TAB PO SCH (20:04)
[2021-01-22] MEDS: Vancomycin 25 MG/ML Oral SOLN PO SCH ×5 (00:47→23:56)
[2021-01-22] MEDS: Cefepime 2 GM in Sodium Chloride 0.9% 100 ML IVPB SCH ×2 (02:13→15:51)
[2021-01-22] MEDS: metroNIDAZOLE 500 MG TAB PO SCH ×3 (02:13→17:31)
[2021-01-22 04:11] LABS: Anion Gap 8 mmol/L (10-20); BUN (Urea Nitrogen) Less than 4 mg/dL (8.4-25.7); Calc. Creatinine Clearance 116 mL/min (70-130); Calcium 6.3 mg/dL (7.8-10.44); Carbon Dioxide 24 mmol/L (23-31); Chloride 105 mmol/L (98-107); Glucose 84 mg/dL (83-110); Magnesium 1.7 mg/dL (1.6-2.6); Potassium 3.2 mmol/L (3.5-5.1); Sodium 134 mmol/L (136-145)
[2021-01-22 04:14] LABS: Phosphorus 1.5 mg/dL (2.3-4.7)
[2021-01-22] MEDS ORDERED: Magnesium 2 GM/50 ML 2 GM in Premix Bag 1 BAG IVPB SCH (05:15)
[2021-01-22] MEDS ORDERED: Potassium Chloride 20 MEQ TAB PO SCH (05:15)
[2021-01-22] MEDS: PHOS-NAK 1 PKT PACK PO SCH ×2 (05:24→09:19)
[2021-01-22] MEDS: Mometasone 100 MCG/Formoterol 5 MCG 120 PUFF INHALER INH SCH ×2 (07:01→18:46)
[2021-01-22] MEDS: Cholecalciferol 1,000 UNITS (25 MCG) TAB PO SCH (09:12)
[2021-01-22] MEDS: Saccharomyces boulardii 250 MG CAP PO SCH (09:12)
[2021-01-22] MEDS: Aspirin 81 mg Enteric Coated Tablet PO SCH (09:12)
[2021-01-22] MEDS: Famotidine 20 MG TAB PO SCH ×2 (09:13→20:24)
[2021-01-22] MEDS: Enoxaparin Sodium 80 MG/0.8 ML SYRINGE SC SCH ×2 (09:19→20:24)
[2021-01-22] MEDS: Folic Acid 1 MG TAB PO SCH (09:20)
[2021-01-22] MEDS ORDERED: Calcium Gluconate 4.6 MEQ in Sodium Chloride 0.9% 100 ML IVPB SCH (12:34)
[2021-01-22] MEDS: Atorvastatin Calcium 20 MG TAB PO SCH (20:24)
[2021-01-23] MEDS: Cefepime 2 GM in Sodium Chloride 0.9% 100 ML IVPB SCH ×2 (02:37→15:34)
[2021-01-23] MEDS: metroNIDAZOLE 500 MG TAB PO SCH ×3 (02:38→16:59)
[2021-01-23 04:55] LABS: Hemoglobin 12.3 g/dL (14.0-18.0); Mean Corpuscular Hemoglobin 34.9 pg (27.0-31.0); Platelet Count 222 thou/uL (130-400); RBC Distribution Width 14.6 % (11.5-14.5); Red Blood Cell (RBC) Count 3.52 mill/uL (4.70-6.10); White Blood Cell (WBC) Count 6.6 thou/uL (4.8-10.8)
[2021-01-23 05:11] LABS: ALT (SGPT) 113 U/L (8-55); AST (SGOT) 24 U/L (5-34); Albumin 2.7 g/dL (3.4-4.8); Alkaline Phosphatase 97 U/L (40-110); Anion Gap 12 mmol/L (10-20); BUN (Urea Nitrogen) 4 mg/dL (8.4-25.7); Bilirubin, Total 0.8 mg/dL (0.2-1.2); Calc. Creatinine Clearance 114 mL/min (70-130); Carbon Dioxide 21 mmol/L (23-31); Chloride 103 mmol/L (98-107); Globulin 2.4 g/dL (2.4-3.5); Glucose 87 mg/dL (83-110); Potassium 3.5 mmol/L (3.5-5.1); Protein, Total 5.1 g/dL (5.8-8.1); Sodium 132 mmol/L (136-145)
[2021-01-23] MEDS: Vancomycin 25 MG/ML Oral SOLN PO SCH ×3 (05:12→16:59)
[2021-01-23 05:19] LABS: Band 3 % (5-11); Eosinophils 3 % (0-10); Lymphocytes 27 % (21-51); MDiff Complete? YES; Macrocytosis SLIGHT = 6-15 cells (100X) (0-5/hpf); Monocytes 6 % (0-10); Neutrophil 57 % (42-75); Reactive Lymphocytes 4 % (0-10)
[2021-01-23] MEDS ORDERED: Potassium Chloride 20 MEQ TAB PO SCH (07:00)
[2021-01-23] MEDS: Mometasone 100 MCG/Formoterol 5 MCG 120 PUFF INHALER INH SCH ×2 (07:08→19:39)
[2021-01-23] MEDS: Aspirin 81 mg Enteric Coated Tablet PO SCH (09:11)
[2021-01-23] MEDS: Cholecalciferol 1,000 UNITS (25 MCG) TAB PO SCH (09:11)
[2021-01-23] MEDS: Saccharomyces boulardii 250 MG CAP PO SCH (09:12)
[2021-01-23] MEDS: Famotidine 20 MG TAB PO SCH ×2 (09:12→22:11)
[2021-01-23] MEDS: Enoxaparin Sodium 80 MG/0.8 ML SYRINGE SC SCH (09:12)
[2021-01-23] MEDS: Folic Acid 1 MG TAB PO SCH (09:12)
[2021-01-23 18:47] LABS: Magnesium 1.7 mg/dL (1.6-2.6)
[2021-01-23] MEDS ORDERED: Magnesium 2 GM/50 ML 2 GM in Premix Bag 1 BAG IVPB SCH (21:45)
[2021-01-23] MEDS: Apixaban 5 MG TAB PO SCH (22:11)
[2021-01-23] MEDS: Amoxicillin/Potassium Clav 875 MG TAB PO SCH (22:11)
[2021-01-23] MEDS: Atorvastatin Calcium 20 MG TAB PO SCH (22:11)
[2021-01-24] MEDS: Vancomycin 25 MG/ML Oral SOLN PO SCH ×4 (00:34→16:33)
[2021-01-24] MEDS: metroNIDAZOLE 500 MG TAB PO SCH ×3 (01:34→16:33)
[2021-01-24 04:44] LABS: Calc. Creatinine Clearance 110 mL/min (70-130)
[2021-01-24 04:45] LABS: ALT (SGPT) 82 U/L (8-55); AST (SGOT) 17 U/L (5-34); Albumin 2.8 g/dL (3.4-4.8); Alkaline Phosphatase 89 U/L (40-110); Bilirubin, Direct 0.4 mg/dL (0.1-0.3); Bilirubin, Total 0.5 mg/dL (0.2-1.2); Protein, Total 5.2 g/dL (5.8-8.1)
[2021-01-24 04:57] LABS: Anisocytosis SLIGHT = 6-15 cells (100X) (0-5/hpf); Band 1 % (5-11); Eosinophils 3 % (0-10); Hemoglobin 12.4 g/dL (14.0-18.0); Lymphocytes 34 % (21-51); MDiff Complete? YES; Macrocytosis SLIGHT = 6-15 cells (100X) (0-5/hpf); Mean Corpuscular HGB CONC 33.3 g/dL (32.0-36.0); Mean Corpuscular Hemoglobin 35.4 pg (27.0-31.0); Mean Platelet Volume 8.7 fL (7.4-10.4); Monocytes 6 % (0-10); Neutrophil 55 % (42-75); Platelet Count 220 thou/uL (130-400); Platelet Morphology Comment Appears Adequate; Polychromasia SLIGHT = 2-3 cells (100X) (0-2/hpf); RBC Distribution Width 14.6 % (11.5-14.5); Red Blood Cell (RBC) Count 3.51 mill/uL (4.70-6.10)
[2021-01-24] MEDS: Mometasone 100 MCG/Formoterol 5 MCG 120 PUFF INHALER INH SCH (07:16)
[2021-01-24] MEDS: Amoxicillin/Potassium Clav 875 MG TAB PO SCH (08:44)
[2021-01-24] MEDS: Apixaban 5 MG TAB PO SCH (08:44)
[2021-01-24] MEDS: Aspirin 81 mg Enteric Coated Tablet PO SCH (08:44)
[2021-01-24] MEDS: Cholecalciferol 1,000 UNITS (25 MCG) TAB PO SCH (08:44)
[2021-01-24] MEDS: Saccharomyces boulardii 250 MG CAP PO SCH (08:44)
[2021-01-24] MEDS: Folic Acid 1 MG TAB PO SCH (08:44)
[2021-01-24] MEDS: Famotidine 20 MG TAB PO SCH (08:44)
[2021-01-24] MEDS: Carvedilol 3.125 MG TAB PO SCH ×2 (08:45→16:34)
[2021-01-24 13:38] LABS: Anion Gap 10 mmol/L (10-20); BUN (Urea Nitrogen) Less than 4 mg/dL (8.4-25.7); Calc. Creatinine Clearance 104 mL/min (70-130); Calcium 8.3 mg/dL (7.8-10.44); Carbon Dioxide 22 mmol/L (23-31); Chloride 105 mmol/L (98-107); Glucose 101 mg/dL (83-110); Sodium 133 mmol/L (136-145)
[2021-01-24 16:48] VITALS: BP 109/56; TEMP 97.8
== END 2021-01-24 18:25 | disposition home health service (06) | DRG 871 ==
LOC: ERS 05:21 → CCU 08:55 → 2NO 01-22 21:48
PROVIDERS: ADMIT Internal Medicine; ATTEND Internal Medicine
PROC: 02HV33Z Insertion of Infusion Device into Superior Vena Cava, Percutaneous Approach (ICD-10-PCS; principal; 2021-01-20)
DX: A41.9 Sepsis, unspecified organism (principal); R65.21 Severe sepsis with septic shock; I50.21 Acute systolic (congestive) heart failure; I21.9 Acute myocardial infarction, unspecified; J18.9 Pneumonia, unspecified organism; A04.72 Enterocolitis due to Clostridium difficile, not specified as recurrent; E86.1 Hypovolemia; E83.42 Hypomagnesemia; E83.51 Hypocalcemia; E87.6 Hypokalemia; H91.90 Unspecified hearing loss, unspecified ear; R74.01 Elevation of levels of liver transaminase levels; D52.9 Folate deficiency anemia, unspecified; H66.92 Otitis media, unspecified, left ear; H70.92 Unspecified mastoiditis, left ear; Z79.82 Long term (current) use of aspirin; Z79.899 Other long term (current) drug therapy; Z86.16 Personal history of COVID-19; I25.2 Old myocardial infarction
CPT/HCPCS: 36415; 36556; 70481; 71045; 74177; 76705; 80048; 80053; 80061; 80076; 80202; 82565; 82607; 82728; 82746; 83605; 83735; 84100; 84443; 84484; 85007; 85025; 85027; 87324; 87449; 87493; 93005; 93306; 94664; 96365; 96366; 96368; J0610; J0692; J1650; J3370; J3475; J3480; J3490; J7050; Q9967

== ENCOUNTER 2021-05-20 13:54 | Outpatient (CLI) | payer MEDICARE, BC | END 2021-05-20 13:55 | disposition home or self-care (01) | LOC: CT 13:54 | PROVIDERS: ATTEND Thoracic Surgery (Cardiothoracic Vascular Surgery) | DX: I65.22 Occlusion and stenosis of left carotid artery (principal); M81.0 Age-related osteoporosis without current pathological fracture; J98.4 Other disorders of lung | CPT/HCPCS: 70498 ==

== ENCOUNTER 2022-06-15 15:07 | Outpatient (CLI) | payer MEDICARE, BC ==
[2022-06-15 16:54] LABS: #Monocytes 0.1 10x3/uL (0.0-1.1); #Neutrophils 4.2 10x3/uL (1.5-8.4); %Basophils 0.6 % (0.0-2.0); %Eosinophils 0.4 % (0.0-6.0); %Lymphocytes 19.5 % (18.0-47.0); %Monocytes 1.1 % (0.0-10.0); %Neutrophils 78.2 % (40.0-75.0); Hemoglobin 14.4 g/dL (13.5-17.5); Mean Corpuscular HGB CONC 33.6 g/dL (32.0-36.0); Mean Corpuscular Volume 98.4 fl (81.2-95.1); Mean Platelet Volume 12.3 fl (7.4-10.4); Platelet Count 152 10x3/uL (150-450); Red Blood Cell (RBC) Count 4.36 10x6/uL (4.32-5.72); White Blood Cell (WBC) Count 5.3 10x3/uL (3.5-10.5)
[2022-06-15 17:09] LABS: ALT (SGPT) 27 U/L (8-55); AST (SGOT) 23 U/L (5-34); Albumin 4.1 g/dL (3.4-4.8); Alkaline Phosphatase 68 U/L (40-110); Anion Gap 16 mmol/L (10-20); BUN (Urea Nitrogen) 9 mg/dL (8.4-25.7); Bilirubin, Total 0.7 mg/dL (0.2-1.2); Calc. Creatinine Clearance 0 mL/min (70-130); Calcium 9.1 mg/dL (7.8-10.44); Carbon Dioxide 18 mmol/L (23-31); Chloride 111 mmol/L (98-107); Estimated GFR 83; Globulin 2.6 g/dL (2.4-3.5); Glucose 121 mg/dL (83-110); Potassium 4.2 mmol/L (3.5-5.1); Protein, Total 6.7 g/dL (5.8-8.1); Sodium 141 mmol/L (136-145)
== END 2022-06-15 15:08 | disposition home or self-care (01) ==
LOC: LABBT 15:07
PROVIDERS: ATTEND Specialist
DX: Z01.812 Encounter for preprocedural laboratory examination (principal); K80.20 Calculus of gallbladder without cholecystitis without obstruction
CPT/HCPCS: 71046; 80053; 82248; 83615; 84100; 84550; 85025

== ENCOUNTER 2022-06-23 06:13 | Inpatient (IN) | payer MEDICARE, BC ==
[2022-06-15 15:56] VITALS: BMI 29.5
[2022-06-23] MEDS ORDERED: fentaNYL PF 100 MCG/2 ML SYRINGE ONE (06:35)
[2022-06-23] MEDS ORDERED: Ketorolac Tromethamine 30 MG/ML VIAL ONE ×2 (06:37→13:18)
[2022-06-23] MEDS ORDERED: Acetaminophen 500 MG TAB ONE (06:37)
[2022-06-23] MEDS ORDERED: Bupivacaine/Epinephrine 0.25% 30 ML VIAL ONE (07:18)
[2022-06-23] MEDS ORDERED: Vasopressin 20 UNITS/ML VIAL ONE (07:19)
[2022-06-23] MEDS ORDERED: Phenylephrine 10 MG/ML VIAL ONE (07:19)
[2022-06-23] MEDS ORDERED: Norepinephrine 4 MG/4 ML VIAL ONE (07:19)
[2022-06-23] MEDS ORDERED: Sodium Chloride 0.9% 100 ML ONE ×2 (07:36→13:48)
[2022-06-23] MEDS ORDERED: CEFAZOLIN 2 GM VIAL ONE (07:36)
[2022-06-23] MEDS ORDERED: Rocuronium Bromide 10 MG/ML (10ML VIAL) ONE (07:54)
[2022-06-23] MEDS ORDERED: NEOSTIGMINE 3 MG/3 ML SYR 3 MG/3 ML SYRINGE ONE (07:54)
[2022-06-23] MEDS ORDERED: Lidocaine 1% PF 5 ML VIAL ONE (07:54)
[2022-06-23] MEDS ORDERED: PHENYLEPHRINE-NS 100 MCG/ML 10 ML SYRINGE ONE (07:54)
[2022-06-23] MEDS ORDERED: Glycopyrrolate 0.2 MG/ML 5 ML SYRINGE ONE (07:54)
[2022-06-23] MEDS ORDERED: Ondansetron PF 4 MG/2 ML Vial ONE (07:54)
[2022-06-23] MEDS ORDERED: PROPOFOL 200 MG/20 ML VIAL ONE (07:54)
[2022-06-23] MEDS ORDERED: Iopamidol 0 ML ONE (09:24)
[2022-06-23] MEDS ORDERED: Iopamidol 15 ML ONE ×2 (09:25→10:46)
[2022-06-23] MEDS ORDERED: Albumin 5% 0 ML ONE (09:48)
[2022-06-23] MEDS ORDERED: Albumin 5% 500 ML ONE (09:48)
[2022-06-23] MEDS ORDERED: Promethazine HCl 25 MG/ML VIAL IM PRN ×2 (12:08→13:09)
[2022-06-23] MEDS ORDERED: Ondansetron HCl/PF 4 MG/2 ML Vial IVP PRN (12:08)
[2022-06-23] MEDS ORDERED: Midazolam HCl 2 mg/2 ml Vial ONE (12:14)
[2022-06-23] MEDS ORDERED: PROPOFOL 20 ML ONE (12:16)
[2022-06-23] MEDS ORDERED: fentaNYL 50 mcg/mL 1 mL Vial ONE ×4 (12:41→14:49)
[2022-06-23] MEDS ORDERED: Promethazine HCl 25 MG/ML VIAL ONE (12:42)
[2022-06-23] MEDS ORDERED: Mag-Al 1200 mg/1200 mg/30 ML UDCUP PO PRN (13:09)
[2022-06-23] MEDS ORDERED: Dextrose 5% in Water 1,000 ML IV PRN (13:09)
[2022-06-23] MEDS ORDERED: Dextrose 50% Abboject 50 ML SYRINGE SLOW IVP PRN (13:09)
[2022-06-23] MEDS ORDERED: Morphine 2 MG/ML VIAL SLOW IVP PRN (13:09)
[2022-06-23] MEDS ORDERED: Ondansetron PF 4 MG/2 ML Vial IVP PRN (13:09)
[2022-06-23] MEDS ORDERED: Ipratropium/Albuterol 3 ML NEB NEB PRN (13:09)
[2022-06-23] MEDS ORDERED: Calcium Carbonate 500 MG ChewTAB PO PRN (13:09)
[2022-06-23] MEDS ORDERED: hydrALAZINE 20 MG/ML VIAL SLOW IVP PRN (13:09)
[2022-06-23] MEDS ORDERED: Morphine 4 MG/ML VIAL SLOW IVP PRN (13:09)
[2022-06-23] MEDS ORDERED: D5 1/2 NS w/20 mEq KCL 1,000 ML ONE (13:18)
[2022-06-23 13:31] LABS: #Monocytes 0.7 thou/uL (0.11-0.59); #Neutrophils 10.4 thou/uL (1.40-6.50); %Basophils 0.2 % (0.0-1.0); %Eosinophils 0.2 % (0.0-10.0); %Monocytes 5.2 % (0.0-10.0); %Neutrophils 81.9 % (42.0-75.0); Hemoglobin 11.9 g/dL (14.0-18.0); Mean Corpuscular HGB CONC 32.2 g/dL (32.0-36.0); Mean Corpuscular Hemoglobin 32.6 pg (27.0-31.0); Mean Corpuscular Volume 101.4 fl (78.0-98.0); Mean Platelet Volume 11.3 fL (7.4-10.4); Platelet Count 128 10x3/uL (130-400); RBC Distribution Width 15.1 % (11.5-14.5); Red Blood Cell (RBC) Count 3.65 mill/uL (4.70-6.10); White Blood Cell (WBC) Count 12.7 10x3/uL (4.8-10.8)
[2022-06-23] MEDS: D5 1/2 NS w/20 mEq KCL 1,000 ML IV SCH ×2 (13:41→22:19)
[2022-06-23] MEDS: Ketorolac Tromethamine 30 MG/ML VIAL IVP SCH ×2 (13:43→20:11)
[2022-06-23] MEDS ORDERED: cefOXitin 2 GM VIAL ONE (13:48)
[2022-06-23] MEDS ORDERED: cefOXitin 2 GM in Sodium Chloride 0.9% 100 ML IVPB SCH (14:00)
[2022-06-23] MEDS: cefOXitin 2 GM in Sodium Chloride 0.9% 100 ML IVPB SCH (15:45)
[2022-06-23] MEDS: HYDROcodone/Acetaminophen 10/325 mg Tablet PO PRN (17:33)
[2022-06-23] MEDS: Carvedilol 3.125 MG TAB PO SCH (17:34)
[2022-06-23] MEDS: Atorvastatin Calcium 20 MG TAB PO SCH (20:12)
[2022-06-23] MEDS: Famotidine 20 MG TAB PO SCH (20:12)
[2022-06-23] MEDS: Famotidine/PF 20 mg/2ml Vial SLOW IVP SCH (21:21)
[2022-06-24] MEDS: cefOXitin 2 GM in Sodium Chloride 0.9% 100 ML IVPB SCH ×3 (00:22→16:10)
[2022-06-24] MEDS: Ketorolac Tromethamine 30 MG/ML VIAL IVP SCH ×4 (02:13→21:32)
[2022-06-24] MEDS: HYDROcodone/Acetaminophen 10/325 mg Tablet PO PRN ×2 (04:19→21:34)
[2022-06-24 04:30] LABS: #Monocytes 0.6 thou/uL (0.11-0.59); #Neutrophils 7.3 thou/uL (1.40-6.50); %Basophils 0.1 % (0.0-1.0); %Eosinophils 0.4 % (0.0-10.0); %Monocytes 6.4 % (0.0-10.0); %Neutrophils 75.6 % (42.0-75.0); Hemoglobin 11.7 g/dL (14.0-18.0); Mean Corpuscular HGB CONC 32.8 g/dL (32.0-36.0); Mean Corpuscular Volume 100.6 fl (78.0-98.0); Mean Platelet Volume 11.7 fL (7.4-10.4); Platelet Count 133 10x3/uL (130-400); RBC Distribution Width 15.4 % (11.5-14.5); Red Blood Cell (RBC) Count 3.55 mill/uL (4.70-6.10); White Blood Cell (WBC) Count 9.7 10x3/uL (4.8-10.8)
[2022-06-24 04:50] LABS: ALT (SGPT) 58 U/L (8-55); AST (SGOT) 57 U/L (5-34); Albumin 3.4 g/dL (3.4-4.8); Alkaline Phosphatase 47 U/L (40-110); Anion Gap 10 mmol/L (10-20); BUN (Urea Nitrogen) 8 mg/dL (8.4-25.7); Calc. Creatinine Clearance 86 mL/min (70-130); Calcium 7.8 mg/dL (7.8-10.44); Carbon Dioxide 22 mmol/L (23-31); Chloride 109 mmol/L (98-107); Estimated GFR 87; Globulin 2.1 g/dL (2.4-3.5); Glucose 123 mg/dL (83-110); Protein, Total 5.5 g/dL (5.8-8.1); Sodium 137 mmol/L (136-145)
[2022-06-24] MEDS: Famotidine/PF 20 mg/2ml Vial SLOW IVP SCH ×2 (08:05→21:00)
[2022-06-24] MEDS: Furosemide 20 MG TAB PO SCH (08:06)
[2022-06-24] MEDS: Famotidine 20 MG TAB PO SCH ×2 (08:06→21:33)
[2022-06-24] MEDS: D5 1/2 NS w/20 mEq KCL 1,000 ML IV SCH ×2 (08:06→16:11)
[2022-06-24] MEDS: Carvedilol 3.125 MG TAB PO SCH ×2 (08:07→16:10)
[2022-06-24] MEDS: Atorvastatin Calcium 20 MG TAB PO SCH (21:33)
[2022-06-25] MEDS: cefOXitin 2 GM in Sodium Chloride 0.9% 100 ML IVPB SCH ×3 (01:27→17:31)
[2022-06-25] MEDS: Ketorolac Tromethamine 30 MG/ML VIAL IVP SCH ×4 (01:27→21:11)
[2022-06-25 05:26] LABS: #Monocytes 0.3 thou/uL (0.11-0.59); %Basophils 0.2 % (0.0-1.0); %Eosinophils 0.7 % (0.0-10.0); %Lymphocytes 13.9 % (21.0-51.0); %Monocytes 4.1 % (0.0-10.0); %Neutrophils 80.9 % (42.0-75.0); Mean Corpuscular HGB CONC 32.8 g/dL (32.0-36.0); Mean Corpuscular Hemoglobin 33.7 pg (27.0-31.0); Mean Corpuscular Volume 102.8 fl (78.0-98.0); Mean Platelet Volume 11.4 fL (7.4-10.4); RBC Distribution Width 15.5 % (11.5-14.5); Red Blood Cell (RBC) Count 3.26 mill/uL (4.70-6.10); White Blood Cell (WBC) Count 6.1 10x3/uL (4.8-10.8)
[2022-06-25 05:46] LABS: ALT (SGPT) 41 U/L (8-55); AST (SGOT) 34 U/L (5-34); Alkaline Phosphatase 39 U/L (40-110); Anion Gap 8 mmol/L (10-20); BUN (Urea Nitrogen) 6 mg/dL (8.4-25.7); Bilirubin, Total 0.8 mg/dL (0.2-1.2); Calc. Creatinine Clearance 80 mL/min (70-130); Calcium 7.7 mg/dL (7.8-10.44); Carbon Dioxide 24 mmol/L (23-31); Chloride 110 mmol/L (98-107); Estimated GFR 81; Globulin 2.2 g/dL (2.4-3.5); Glucose 109 mg/dL (83-110); Potassium 4.1 mmol/L (3.5-5.1); Protein, Total 5.2 g/dL (5.8-8.1); Sodium 138 mmol/L (136-145)
[2022-06-25 06:09] LABS: Manual Diff?? YES; Platelet Count 112 10x3/uL (130-400)
[2022-06-25] MEDS: HYDROcodone/Acetaminophen 10/325 mg Tablet PO PRN (06:22)
[2022-06-25 07:53] LABS: Band 12 % (5-11); Burr Cells SLIGHT = 2-5 cells HPF (0-1); CellaVision Operator ID LAB.GE; Eosinophils 1 % (0-10); Lymphocytes 9 % (21-51); Macrocytosis SLIGHT = 6-15 cells HPF (0-5); Monocytes 2 % (0-10); Neutrophil 76 % (42-75); Platelet Morphology Comment Platelets Decreased; Polychromasia SLIGHT = 2-3 cells HPF (0-2); Total Cell Count 101
[2022-06-25] MEDS: Famotidine 20 MG TAB PO SCH ×2 (08:58→21:12)
[2022-06-25] MEDS: Carvedilol 3.125 MG TAB PO SCH ×2 (08:58→17:30)
[2022-06-25] MEDS: Furosemide 20 MG TAB PO SCH (08:58)
[2022-06-25] MEDS: D5 1/2 NS w/20 mEq KCL 1,000 ML IV SCH ×4 (08:58→21:12)
[2022-06-25] MEDS: Famotidine/PF 20 mg/2ml Vial SLOW IVP SCH ×2 (09:00→21:11)
[2022-06-25] MEDS ORDERED: SUGAMMADEX SODIUM 200 MG/2 ML VIAL ONE (12:07)
[2022-06-25] MEDS ORDERED: Norepinephrine 4 MG/4 ML VIAL ONE (12:07)
[2022-06-25] MEDS ORDERED: fentaNYL PF 100 MCG/2 ML SYRINGE ONE (12:07)
[2022-06-25] MEDS ORDERED: Vasopressin 20 UNITS/ML VIAL ONE (12:07)
[2022-06-25] MEDS ORDERED: Iopamidol 30 ML ONE (12:12)
[2022-06-25] MEDS ORDERED: Indomethacin 50 MG SUPP ONE ×2 (12:13→12:16)
[2022-06-25] MEDS ORDERED: PROPOFOL 200 MG/20 ML VIAL ONE (12:28)
[2022-06-25] MEDS ORDERED: Glycopyrrolate 0.2 MG/ML 5 ML SYRINGE ONE (12:28)
[2022-06-25] MEDS ORDERED: PHENYLEPHRINE-NS 100 MCG/ML 10 ML SYRINGE ONE (12:28)
[2022-06-25] MEDS ORDERED: Esmolol 100 MG/10 ML VIAL ONE (12:28)
[2022-06-25] MEDS ORDERED: Lidocaine 1% PF 5 ML VIAL ONE (12:28)
[2022-06-25] MEDS ORDERED: ePHEDrine Sulfate 50 MG/10 ML VIAL ONE (12:28)
[2022-06-25] MEDS ORDERED: NEOSTIGMINE 3 MG/3 ML SYR 3 MG/3 ML SYRINGE ONE (12:28)
[2022-06-25] MEDS ORDERED: Rocuronium Bromide 10 MG/ML (10ML VIAL) ONE (12:28)
[2022-06-25] MEDS ORDERED: Ondansetron PF 4 MG/2 ML Vial ONE (12:28)
[2022-06-25] MEDS ORDERED: Phenylephrine 10 MG/ML VIAL ONE (12:46)
[2022-06-25 20:59] VITALS: BP 100/62; TEMP 97.6
[2022-06-25] MEDS: Atorvastatin Calcium 20 MG TAB PO SCH (21:11)
== END 2022-06-25 22:55 | disposition short-term general hospital (02) | DRG 408 ==
LOC: SDC 06:13 → IMCU/EMU 16:08 → SURG B 06-24 18:04
PROVIDERS: ADMIT Specialist; ATTEND Specialist
PROC: 0FQ90ZZ Repair Common Bile Duct, Open Approach (ICD-10-PCS; principal; 2022-06-23)
PROC: 0FT40ZZ Resection of Gallbladder, Open Approach (ICD-10-PCS; 2022-06-23)
PROC: BF10YZZ Fluoroscopy of Bile Ducts using Other Contrast (ICD-10-PCS; 2022-06-23)
PROC: 0FJB8ZZ Inspection of Hepatobiliary Duct, Via Natural or Artificial Opening Endoscopic (ICD-10-PCS; 2022-06-25)
DX: K81.1 Chronic cholecystitis (principal); K83.1 Obstruction of bile duct; E87.20 Acidosis, unspecified; F05 Delirium due to known physiological condition; S36.13XA Injury of bile duct, initial encounter
CPT/HCPCS: 36415; 36430; 47532; 80053; 85025; 86850; 86870; 86900; 86901; 86922; 88304; C1889; J0694; J1885; J2250; J2370; J2405; J2550; J2704; J3010; J3480; J3490; P9016; P9045; Q9967; S0028

== ENCOUNTER 2022-09-11 20:36 | Inpatient (IN) | payer MEDICARE, BC ==
[2022-09-11 22:41] VITALS: BMI 25.8
[2022-09-11] MEDS ORDERED: Ondansetron PF 4 MG/2 ML Vial IVP PRN (23:19)
[2022-09-11] MEDS ORDERED: Ondansetron ODT 4 MG TAB PO PRN (23:19)
[2022-09-11] MEDS ORDERED: Acetaminophen 325 MG TAB PO PRN (23:19)
[2022-09-11] MEDS ORDERED: Electrolyte Replacement Protocol 1 EACH FS SCH (23:30)
[2022-09-12 00:03] LABS: Anion Gap 10 mmol/L (10-20); BUN (Urea Nitrogen) 5 mg/dL (8.4-25.7); Calc. Creatinine Clearance 85 mL/min (70-130); Calcium 7.4 mg/dL (7.8-10.44); Carbon Dioxide 28 mmol/L (23-31); Chloride 105 mmol/L (98-107); Estimated GFR 89; Glucose 97 mg/dL (83-110); Magnesium 1.7 mg/dL (1.6-2.6); Sodium 141 mmol/L (136-145)
[2022-09-12 00:08] LABS: Potassium 2.4 mmol/L (3.5-5.1)
[2022-09-12] MEDS ORDERED: Vancomycin HCl 125 MG/5 ML (BATCHED) UDCUP PO SCH (00:30)
[2022-09-12] MEDS ORDERED: NS 0.9% w/ 40 MEQ KCL 1,000 ML IV SCH (01:00)
[2022-09-12] MEDS: Potassium Chloride 20 MEQ in Premix Bag 1 BAG IVPB SCH ×6 (03:00→19:36)
[2022-09-12 04:00] LABS: Hemoglobin 10.3 g/dL (14.0-18.0); Mean Corpuscular HGB CONC 34.8 g/dL (32.0-36.0); Mean Corpuscular Hemoglobin 33.3 pg (27.0-31.0); Mean Corpuscular Volume 95.8 fl (78.0-98.0); Mean Platelet Volume 10.4 fL (7.4-10.4); Platelet Count 267 10x3/uL (130-400); RBC Distribution Width 16.5 % (11.5-14.5); Red Blood Cell (RBC) Count 3.09 mill/uL (4.70-6.10); White Blood Cell (WBC) Count 4.4 10x3/uL (4.8-10.8)
[2022-09-12 04:11] LABS: Delete Auto Diff?? YES; Manual Diff?? YES
[2022-09-12 04:39] LABS: Anisocytosis SLIGHT = 6-15 cells HPF (0-5); Band 17 % (5-11); CellaVision Operator ID lab.sh2; Eosinophils 4 % (0-10); Large Platelets 6.9 % (0-5); Lymphocytes 35 % (21-51); Macrocytosis SLIGHT = 6-15 cells HPF (0-5); Monocytes 3 % (0-10); Neutrophil 41 % (42-75); Platelet Adequacy Comment Platelets Normal; Poikilocytosis SLIGHT = 6-15 cells HPF (0-5); Polychromasia SLIGHT = 2-3 cells HPF (0-2); Smudge Cells 13.8 %; Tear Drops SLIGHT = 2-5 cells HPF (0-1); Total Cell Count 29
[2022-09-12] MEDS: Vancomycin HCl 125 MG/5 ML (BATCHED) UDCUP PO SCH ×4 (05:49→23:21)
[2022-09-12] MEDS ORDERED: Magnesium 2 GM/50 ML(in water) 2 GM in Premix Bag 1 BAG IVPB SCH (06:00)
[2022-09-12] MEDS ORDERED: Carvedilol 3.125 MG TAB PO SCH (08:00)
[2022-09-12 09:22] LABS: Chloride 104 mmol/L (98-107); Sodium 139 mmol/L (136-145)
[2022-09-12 09:23] LABS: Calcium 7.5 mg/dL (7.8-10.44); Glucose 95 mg/dL (83-110)
[2022-09-12 09:25] LABS: Anion Gap 12 mmol/L (10-20); Carbon Dioxide 26 mmol/L (23-31)
[2022-09-12 09:26] LABS: Calc. Creatinine Clearance 83 mL/min (70-130); Estimated GFR 89
[2022-09-12 09:27] LABS: BUN (Urea Nitrogen) 5 mg/dL (8.4-25.7)
[2022-09-12 09:28] LABS: Magnesium 1.7 mg/dL (1.6-2.6)
[2022-09-12 09:41] LABS: Phosphorus 1.4 mg/dL (2.3-4.7); Potassium 2.6 mmol/L (3.5-5.1)
[2022-09-12] MEDS: Apixaban 5 MG TAB PO SCH ×2 (09:47→19:36)
[2022-09-12] MEDS: Folic Acid 1 MG TAB PO SCH (09:47)
[2022-09-12] MEDS: Aspirin 81 mg Enteric Coated Tablet PO SCH (09:47)
[2022-09-12] MEDS: Cholecalciferol 1,000 UNITS (25 MCG) TAB PO SCH (09:47)
[2022-09-12] MEDS: PHOS-NAK 1 PKT PACK PO SCH ×4 (10:00→22:24)
[2022-09-12 15:25] LABS: Anion Gap 12 mmol/L (10-20); BUN (Urea Nitrogen) Less than 4 mg/dL (8.4-25.7); Calc. Creatinine Clearance 82 mL/min (70-130); Calcium 7.5 mg/dL (7.8-10.44); Carbon Dioxide 27 mmol/L (23-31); Chloride 106 mmol/L (98-107); Estimated GFR 88; Glucose 101 mg/dL (83-110); Magnesium 2.1 mg/dL (1.6-2.6); Potassium 3.1 mmol/L (3.5-5.1); Sodium 142 mmol/L (136-145)
[2022-09-12 15:36] LABS: Phosphorus 1.5 mg/dL (2.3-4.7)
[2022-09-12] MEDS: Carvedilol 3.125 MG TAB PO SCH (17:32)
[2022-09-12] MEDS: Atorvastatin Calcium 20 MG TAB PO SCH (19:36)
[2022-09-12 20:12] LABS: Campy jejuni + coli by PCR Negative (Negative); STEC Shiga Toxin 1+2 Negative (Negative); Salmonella spp. by PCR Negative (Negative); Shigella spp + EIEC by PCR Negative (Negative)
[2022-09-13 05:10] LABS: #Eosinphils 0.1 thou/uL (0.0-0.7); #Monocytes 0.4 thou/uL (0.11-0.59); #Neutrophils 1.6 thou/uL (1.40-6.50); %Basophils 0.5 % (0.0-1.0); %Eosinophils 1.9 % (0.0-10.0); %Lymphocytes 50.5 % (21.0-51.0); %Monocytes 9.4 % (0.0-10.0); %Neutrophils 37.7 % (42.0-75.0); Hemoglobin 9.5 g/dL (14.0-18.0); Mean Corpuscular HGB CONC 33.6 g/dL (32.0-36.0); Mean Corpuscular Volume 98.3 fl (78.0-98.0); Mean Platelet Volume 10.2 fL (7.4-10.4); Platelet Count 257 10x3/uL (130-400); RBC Distribution Width 16.8 % (11.5-14.5); Red Blood Cell (RBC) Count 2.88 mill/uL (4.70-6.10); White Blood Cell (WBC) Count 4.1 10x3/uL (4.8-10.8)
[2022-09-13] MEDS: Vancomycin HCl 125 MG/5 ML (BATCHED) UDCUP PO SCH ×4 (05:23→23:14)
[2022-09-13 05:43] LABS: Phosphorus 2.5 mg/dL (2.3-4.7)
[2022-09-13 05:47] LABS: Anion Gap 11 mmol/L (10-20); BUN (Urea Nitrogen) Less than 4 mg/dL (8.4-25.7); Calc. Creatinine Clearance 96 mL/min (70-130); Calcium 7.3 mg/dL (7.8-10.44); Carbon Dioxide 25 mmol/L (23-31); Chloride 110 mmol/L (98-107); Estimated GFR 93; Glucose 116 mg/dL (83-110); Magnesium 1.7 mg/dL (1.6-2.6); Potassium 2.7 mmol/L (3.5-5.1); Sodium 143 mmol/L (136-145)
[2022-09-13] MEDS ORDERED: Magnesium 2 GM/50 ML(in water) 2 GM in Premix Bag 1 BAG IVPB SCH (06:00)
[2022-09-13] MEDS: Potassium Chloride 20 MEQ in Premix Bag 1 BAG IVPB SCH ×4 (07:00→13:53)
[2022-09-13] MEDS: Aspirin 81 mg Enteric Coated Tablet PO SCH (09:29)
[2022-09-13] MEDS: Folic Acid 1 MG TAB PO SCH (09:29)
[2022-09-13] MEDS: Carvedilol 3.125 MG TAB PO SCH ×2 (09:29→18:06)
[2022-09-13] MEDS: Cholecalciferol 1,000 UNITS (25 MCG) TAB PO SCH (09:29)
[2022-09-13] MEDS: Saccharomyces boulardii 250 MG CAP PO SCH (09:29)
[2022-09-13] MEDS: Apixaban 5 MG TAB PO SCH ×2 (09:30→20:50)
[2022-09-13 17:29] LABS: Anion Gap 12 mmol/L (10-20); BUN (Urea Nitrogen) Less than 4 mg/dL (8.4-25.7); Calc. Creatinine Clearance 76 mL/min (70-130); Calcium 7.8 mg/dL (7.8-10.44); Carbon Dioxide 27 mmol/L (23-31); Chloride 108 mmol/L (98-107); Estimated GFR 87; Glucose 96 mg/dL (83-110); Magnesium 1.9 mg/dL (1.6-2.6); Phosphorus 2.2 mg/dL (2.3-4.7); Potassium 3.5 mmol/L (3.5-5.1); Sodium 143 mmol/L (136-145)
[2022-09-13] MEDS: Atorvastatin Calcium 20 MG TAB PO SCH (20:50)
[2022-09-14 05:32] LABS: #Eosinphils 0.1 thou/uL (0.0-0.7); #Monocytes 0.4 thou/uL (0.11-0.59); #Neutrophils 2.3 thou/uL (1.40-6.50); %Basophils 0.4 % (0.0-1.0); %Eosinophils 1.9 % (0.0-10.0); %Lymphocytes 40.7 % (21.0-51.0); %Monocytes 8.2 % (0.0-10.0); %Neutrophils 48.4 % (42.0-75.0); Hemoglobin 9.2 g/dL (14.0-18.0); Mean Corpuscular HGB CONC 33.2 g/dL (32.0-36.0); Mean Corpuscular Hemoglobin 33.6 pg (27.0-31.0); Mean Corpuscular Volume 101.1 fl (78.0-98.0); Platelet Count 248 10x3/uL (130-400); Red Blood Cell (RBC) Count 2.74 mill/uL (4.70-6.10); White Blood Cell (WBC) Count 4.7 10x3/uL (4.8-10.8)
[2022-09-14] MEDS: Vancomycin HCl 125 MG/5 ML (BATCHED) UDCUP PO SCH ×4 (05:51→22:41)
[2022-09-14 05:52] LABS: Phosphorus 2.2 mg/dL (2.3-4.7)
[2022-09-14 05:57] LABS: Anion Gap 12 mmol/L (10-20); BUN (Urea Nitrogen) Less than 4 mg/dL (8.4-25.7); Calc. Creatinine Clearance 88 mL/min (70-130); Calcium 7.5 mg/dL (7.8-10.44); Carbon Dioxide 22 mmol/L (23-31); Chloride 110 mmol/L (98-107); Estimated GFR 91; Glucose 118 mg/dL (83-110); Magnesium 1.6 mg/dL (1.6-2.6); Potassium 2.8 mmol/L (3.5-5.1); Sodium 141 mmol/L (136-145)
[2022-09-14] MEDS ORDERED: Magnesium 2 GM/50 ML(in water) 2 GM in Premix Bag 1 BAG IVPB SCH (06:15)
[2022-09-14] MEDS: Potassium Chloride 20 MEQ in Premix Bag 1 BAG IVPB SCH ×4 (06:22→22:42)
[2022-09-14] MEDS: Saccharomyces boulardii 250 MG CAP PO SCH (09:07)
[2022-09-14] MEDS: Cholecalciferol 1,000 UNITS (25 MCG) TAB PO SCH (09:07)
[2022-09-14] MEDS: Aspirin 81 mg Enteric Coated Tablet PO SCH (09:07)
[2022-09-14] MEDS: Carvedilol 3.125 MG TAB PO SCH ×2 (09:07→17:17)
[2022-09-14] MEDS: Folic Acid 1 MG TAB PO SCH (09:08)
[2022-09-14] MEDS: Apixaban 5 MG TAB PO SCH ×2 (09:08→22:41)
[2022-09-14 18:11] LABS: Anion Gap 9 mmol/L (10-20); BUN (Urea Nitrogen) Less than 4 mg/dL (8.4-25.7); Calc. Creatinine Clearance 84 mL/min (70-130); Calcium 7.7 mg/dL (7.8-10.44); Carbon Dioxide 26 mmol/L (23-31); Chloride 108 mmol/L (98-107); Estimated GFR 89; Glucose 102 mg/dL (83-110); Magnesium 1.9 mg/dL (1.6-2.6); Potassium 3.2 mmol/L (3.5-5.1); Sodium 140 mmol/L (136-145)
[2022-09-14] MEDS: Atorvastatin Calcium 20 MG TAB PO SCH (22:41)
[2022-09-14] MEDS ORDERED: Potassium Chloride 20 MEQ in Premix Bag 1 BAG IVPB SCH (22:45)
[2022-09-15 04:14] LABS: #Eosinphils 0.1 thou/uL (0.0-0.7); #Monocytes 0.4 thou/uL (0.11-0.59); #Neutrophils 2.6 thou/uL (1.40-6.50); %Basophils 0.4 % (0.0-1.0); %Eosinophils 1.7 % (0.0-10.0); %Lymphocytes 42.6 % (21.0-51.0); %Monocytes 6.8 % (0.0-10.0); %Neutrophils 48.1 % (42.0-75.0); Hemoglobin 9.2 g/dL (14.0-18.0); Mean Corpuscular HGB CONC 32.6 g/dL (32.0-36.0); Mean Corpuscular Hemoglobin 32.7 pg (27.0-31.0); Mean Corpuscular Volume 100.4 fl (78.0-98.0); Platelet Count 250 10x3/uL (130-400); Red Blood Cell (RBC) Count 2.81 mill/uL (4.70-6.10); White Blood Cell (WBC) Count 5.3 10x3/uL (4.8-10.8)
[2022-09-15 04:32] LABS: Anion Gap 5 mmol/L (10-20); BUN (Urea Nitrogen) Less than 4 mg/dL (8.4-25.7); Calc. Creatinine Clearance 92 mL/min (70-130); Calcium 7.7 mg/dL (7.8-10.44); Carbon Dioxide 26 mmol/L (23-31); Chloride 112 mmol/L (98-107); Estimated GFR 92; Glucose 122 mg/dL (83-110); Sodium 140 mmol/L (136-145)
[2022-09-15] MEDS: Vancomycin HCl 125 MG/5 ML (BATCHED) UDCUP PO SCH ×3 (05:13→17:36)
[2022-09-15] MEDS ORDERED: Potassium Bicarbonate/Cit Ac 20 MEQ TAB PO SCH (08:00)
[2022-09-15] MEDS: Aspirin 81 mg Enteric Coated Tablet PO SCH (08:50)
[2022-09-15] MEDS: Folic Acid 1 MG TAB PO SCH (08:50)
[2022-09-15] MEDS: Cholecalciferol 1,000 UNITS (25 MCG) TAB PO SCH (08:50)
[2022-09-15] MEDS: Carvedilol 3.125 MG TAB PO SCH ×2 (08:50→17:38)
[2022-09-15] MEDS: Saccharomyces boulardii 250 MG CAP PO SCH (08:50)
[2022-09-15] MEDS: Apixaban 5 MG TAB PO SCH ×2 (08:50→20:54)
[2022-09-15] MEDS ORDERED: Potassium Chloride 20 MEQ TAB PO SCH (18:30)
[2022-09-15] MEDS: Atorvastatin Calcium 20 MG TAB PO SCH (20:55)
[2022-09-16] MEDS: Vancomycin HCl 125 MG/5 ML (BATCHED) UDCUP PO SCH ×3 (00:37→13:14)
[2022-09-16 04:28] LABS: #Eosinphils 0.1 thou/uL (0.0-0.7); #Monocytes 0.4 thou/uL (0.11-0.59); #Neutrophils 2.6 thou/uL (1.40-6.50); %Basophils 0.4 % (0.0-1.0); %Eosinophils 1.6 % (0.0-10.0); %Lymphocytes 38.2 % (21.0-51.0); %Neutrophils 51.4 % (42.0-75.0); Hemoglobin 9.3 g/dL (14.0-18.0); Mean Corpuscular HGB CONC 32.6 g/dL (32.0-36.0); Mean Corpuscular Hemoglobin 32.9 pg (27.0-31.0); Mean Corpuscular Volume 100.7 fl (78.0-98.0); Platelet Count 253 10x3/uL (130-400); Red Blood Cell (RBC) Count 2.83 mill/uL (4.70-6.10)
[2022-09-16 05:12] LABS: Phosphorus 2.2 mg/dL (2.3-4.7)
[2022-09-16 05:15] LABS: Anion Gap 11 mmol/L (10-20); BUN (Urea Nitrogen) 5 mg/dL (8.4-25.7); Calc. Creatinine Clearance 93 mL/min (70-130); Calcium 7.8 mg/dL (7.8-10.44); Carbon Dioxide 24 mmol/L (23-31); Chloride 107 mmol/L (98-107); Estimated GFR 92; Glucose 101 mg/dL (83-110); Magnesium 1.4 mg/dL (1.6-2.6); Potassium 3.2 mmol/L (3.5-5.1); Sodium 139 mmol/L (136-145)
[2022-09-16] MEDS ORDERED: Magnesium 2 GM/50 ML(in water) 2 GM in Premix Bag 1 BAG IVPB SCH (06:15)
[2022-09-16] MEDS ORDERED: Potassium Chloride 20 MEQ TAB PO SCH ×2 (08:00→10:30)
[2022-09-16] MEDS: Aspirin 81 mg Enteric Coated Tablet PO SCH (09:17)
[2022-09-16] MEDS: Cholecalciferol 1,000 UNITS (25 MCG) TAB PO SCH (09:17)
[2022-09-16] MEDS: Saccharomyces boulardii 250 MG CAP PO SCH (09:17)
[2022-09-16] MEDS: Apixaban 5 MG TAB PO SCH (09:17)
[2022-09-16] MEDS: Folic Acid 1 MG TAB PO SCH (09:17)
[2022-09-16] MEDS: Carvedilol 3.125 MG TAB PO SCH ×2 (09:18→17:31)
[2022-09-16 14:38] LABS: Potassium 3.9 mmol/L (3.5-5.1)
[2022-09-16 14:49] LABS: Magnesium 1.7 mg/dL (1.6-2.6)
[2022-09-16 16:35] VITALS: BP 128/60; TEMP 98.2
== END 2022-09-16 17:32 | disposition home or self-care (01) | DRG 372 ==
LOC: 2SW 22:25 → OBSVTOIN 09-12 10:54 → 2NO 09-12 21:50
PROVIDERS: ADMIT Internal Medicine; ATTEND Internal Medicine
DX: A04.72 Enterocolitis due to Clostridium difficile, not specified as recurrent (principal); C90.00 Multiple myeloma not having achieved remission; I47.20 Ventricular tachycardia, unspecified; I50.22 Chronic systolic (congestive) heart failure; E87.6 Hypokalemia; E83.42 Hypomagnesemia; I25.5 Ischemic cardiomyopathy; E83.39 Other disorders of phosphorus metabolism; I25.10 Atherosclerotic heart disease of native coronary artery without angina pectoris; Z96.21 Cochlear implant status; Z79.82 Long term (current) use of aspirin; Z90.49 Acquired absence of other specified parts of digestive tract; Z79.01 Long term (current) use of anticoagulants; Z79.899 Other long term (current) drug therapy; Z85.820 Personal history of malignant melanoma of skin
CPT/HCPCS: 36415; 80048; 83735; 84100; 85025; 87505; 93306; 94640; 96374; 96375; 96376; G0378; J3475; J3480; J7611

== ENCOUNTER 2023-03-11 13:32 | Inpatient (IN) | payer MEDICARE, BC ==
[2023-03-11 13:59] LABS: #Monocytes 0.3 thou/uL (0.11-0.59); #Neutrophils 5.3 thou/uL (1.40-6.50); %Basophils 0.2 % (0.0-1.0); %Monocytes 4.7 % (0.0-10.0); %Neutrophils 87.4 % (42.0-75.0); Hematocrit 29.4 % (42.0-52.0); Hemoglobin 10.3 g/dL (14.0-18.0); Mean Corpuscular Hemoglobin 36.7 pg (27.0-31.0); Mean Corpuscular Volume 104.6 fl (78.0-98.0); Platelet Count 147 10x3/uL (130-400); RBC Distribution Width 16.7 % (11.5-14.5); Red Blood Cell (RBC) Count 2.81 mill/uL (4.70-6.10)
[2023-03-11] MEDS ORDERED: Acetaminophen/Codeine 30-300mg Tablet PO PRN (14:15)
[2023-03-11] MEDS ORDERED: Glucagon 1 MG/ML KIT IM PRN (14:15)
[2023-03-11] MEDS ORDERED: Ondansetron PF 4 MG/2 ML Vial IVP PRN (14:15)
[2023-03-11] MEDS ORDERED: Ondansetron ODT 4 MG TAB PO PRN (14:15)
[2023-03-11] MEDS ORDERED: Acetaminophen 325 MG TAB PO PRN (14:15)
[2023-03-11] MEDS ORDERED: Dextrose 5% in Water 1,000 ML IV PRN (14:15)
[2023-03-11] MEDS ORDERED: hydrALAZINE 20 MG/ML VIAL SLOW IVP PRN (14:15)
[2023-03-11] MEDS ORDERED: Dextrose 50% Abboject 50 ML SYRINGE SLOW IVP PRN (14:15)
[2023-03-11 14:17] LABS: INR-International Normal Ratio 1.3
[2023-03-11 14:18] LABS: PTT 30.4 sec (22.9-36.1)
[2023-03-11 14:25] LABS: ALT (SGPT) 77 U/L (8-55); AST (SGOT) 47 U/L (5-34); Albumin 3.4 g/dL (3.4-4.8); Alkaline Phosphatase 116 U/L (40-110); Anion Gap 11 mmol/L (10-20); BUN (Urea Nitrogen) 17 mg/dL (8.4-25.7); Bilirubin, Total 0.7 mg/dL (0.2-1.2); Calc. Creatinine Clearance 0 mL/min (70-130); Calcium 8.7 mg/dL (7.8-10.44); Carbon Dioxide 22 mmol/L (23-31); Chloride 112 mmol/L (98-107); Estimated GFR 79; Globulin 3.8 g/dL (2.4-3.5); Glucose 72 mg/dL (83-110); Magnesium 1.7 mg/dL (1.6-2.6); Potassium 3.1 mmol/L (3.5-5.1); Protein, Total 7.2 g/dL (5.8-8.1); Sodium 142 mmol/L (136-145)
[2023-03-11 21:06] VITALS: BMI 25.3
[2023-03-12 06:16] LABS: #Monocytes 0.3 thou/uL (0.11-0.59); #Neutrophils 3.7 thou/uL (1.40-6.50); %Basophils 0.2 % (0.0-1.0); %Lymphocytes 11.7 % (21.0-51.0); %Monocytes 6.8 % (0.0-10.0); %Neutrophils 80.4 % (42.0-75.0); Hematocrit 33.2 % (42.0-52.0); Hemoglobin 11.4 g/dL (14.0-18.0); Mean Corpuscular HGB CONC 34.3 g/dL (32.0-36.0); Mean Corpuscular Hemoglobin 36.3 pg (27.0-31.0); Mean Corpuscular Volume 105.7 fl (78.0-98.0); Mean Platelet Volume 11.2 fL (7.4-10.4); Platelet Count 141 10x3/uL (130-400); RBC Distribution Width 17.2 % (11.5-14.5); Red Blood Cell (RBC) Count 3.14 mill/uL (4.70-6.10); White Blood Cell (WBC) Count 4.5 10x3/uL (4.8-10.8)
[2023-03-12 06:51] LABS: ALT (SGPT) 65 U/L (8-55); AST (SGOT) 33 U/L (5-34); Albumin 3.3 g/dL (3.4-4.8); Alkaline Phosphatase 117 U/L (40-110); Anion Gap 13 mmol/L (10-20); BUN (Urea Nitrogen) 19 mg/dL (8.4-25.7); Bilirubin, Total 0.5 mg/dL (0.2-1.2); Calc. Creatinine Clearance 47 mL/min (70-130); Calcium 8.8 mg/dL (7.8-10.44); Carbon Dioxide 18 mmol/L (23-31); Chloride 114 mmol/L (98-107); Estimated GFR 51; Globulin 4.1 g/dL (2.4-3.5); Glucose 117 mg/dL (83-110); Protein, Total 7.4 g/dL (5.8-8.1); Sodium 143 mmol/L (136-145)
[2023-03-12 07:00] LABS: Critical Call Chemistry NUR.PLF@0700; Potassium 2.4 mmol/L (3.5-5.1)
[2023-03-12] MEDS ORDERED: Electrolyte Replacement Protocol FS PRN (07:30)
[2023-03-12] MEDS ORDERED: Electrolyte Replacement Protocol 1 EACH FS SCH (07:30)
[2023-03-12 08:09] LABS: Magnesium 1.9 mg/dL (1.6-2.6); Phosphorus 3.2 mg/dL (2.3-4.7)
[2023-03-12] MEDS ORDERED: Magnesium 2 GM/50 ML(in water) 2 GM in Premix 1 BAG IVPB SCH (09:00)
[2023-03-12] MEDS: Potassium Bicarbonate/Cit Ac 20 MEQ TAB PO SCH ×2 (09:57→12:45)
[2023-03-13 05:47] LABS: #Monocytes 0.3 thou/uL (0.11-0.59); #Neutrophils 1.6 thou/uL (1.40-6.50); %Basophils 0.4 % (0.0-1.0); %Eosinophils 0.7 % (0.0-10.0); %Lymphocytes 29.6 % (21.0-51.0); %Monocytes 10.5 % (0.0-10.0); %Neutrophils 58.4 % (42.0-75.0); Hemoglobin 11.1 g/dL (14.0-18.0); Mean Corpuscular HGB CONC 35.8 g/dL (32.0-36.0); Mean Corpuscular Hemoglobin 36.8 pg (27.0-31.0); Mean Corpuscular Volume 102.6 fl (78.0-98.0); Mean Platelet Volume 11.1 fL (7.4-10.4); RBC Distribution Width 16.7 % (11.5-14.5); Red Blood Cell (RBC) Count 3.02 mill/uL (4.70-6.10); White Blood Cell (WBC) Count 2.8 10x3/uL (4.8-10.8)
[2023-03-13 06:05] LABS: Platelet Count 115 10x3/uL (130-400)
[2023-03-13 06:11] LABS: ALT (SGPT) 46 U/L (8-55); AST (SGOT) 21 U/L (5-34); Albumin 3.2 g/dL (3.4-4.8); Alkaline Phosphatase 95 U/L (40-110); Anion Gap 15 mmol/L (10-20); BUN (Urea Nitrogen) 21 mg/dL (8.4-25.7); Bilirubin, Total 0.5 mg/dL (0.2-1.2); Calc. Creatinine Clearance 54 mL/min (70-130); Calcium 8.5 mg/dL (7.8-10.44); Carbon Dioxide 18 mmol/L (23-31); Chloride 111 mmol/L (98-107); Estimated GFR 60; Globulin 3.7 g/dL (2.4-3.5); Glucose 91 mg/dL (83-110); Protein, Total 6.9 g/dL (5.8-8.1); Sodium 141 mmol/L (136-145)
[2023-03-13 06:16] LABS: Critical Call Chemistry NUR.MGD@0616; Potassium 2.5 mmol/L (3.5-5.1)
[2023-03-13] MEDS ORDERED: Potassium Chloride 20 MEQ TAB PO SCH (06:30)
[2023-03-13] MEDS ORDERED: Potassium Chloride 20 MEQ in Premix 1 BAG IVPB SCH (06:30)
[2023-03-13] MEDS: Potassium Bicarbonate/Cit Ac 20 MEQ TAB PO SCH ×2 (06:38→11:28)
[2023-03-13 15:46] VITALS: BP 137/70
[2023-03-13 16:52] LABS: Potassium 3.1 mmol/L (3.5-5.1)
[2023-03-13] MEDS ORDERED: Potassium Bicarbonate/Cit Ac 20 MEQ TAB PO SCH (19:30)
[2023-03-14 01:28] LABS: Potassium 3.4 mmol/L (3.5-5.1)
[2023-03-14] MEDS ORDERED: Potassium Chloride 20 MEQ TAB PO SCH (03:00)
[2023-03-14 09:49] LABS: Potassium 3.8 mmol/L (3.5-5.1)
[2023-03-14 12:16] VITALS: TEMP 97.7
== END 2023-03-14 13:40 | disposition home or self-care (01) | DRG 83 ==
LOC: ERS 13:32 → ERHOLD 14:19 → IMCU/EMU 20:20
PROVIDERS: ADMIT Surgery; ATTEND Surgery
DX: S06.6X9A Traumatic subarachnoid hemorrhage with loss of consciousness of unspecified duration, initial encounter (principal); C90.00 Multiple myeloma not having achieved remission; I50.9 Heart failure, unspecified; E78.5 Hyperlipidemia, unspecified; I11.0 Hypertensive heart disease with heart failure; W19.XXXA Unspecified fall, initial encounter; I25.2 Old myocardial infarction; Z90.49 Acquired absence of other specified parts of digestive tract; Z98.890 Other specified postprocedural states; Y92.009 Unspecified place in unspecified non-institutional (private) residence as the place of occurrence of the external cause
CPT/HCPCS: 36415; 36416; 70450; 70486; 71046; 80053; 83735; 84100; 85025; 86850; 86870; 86900; 86901; 87324; 87449; 99285; G0390; J3475

== ENCOUNTER 2023-03-23 11:19 | Inpatient (IN) | payer MEDICARE, BC ==
[2023-03-23 12:29] LABS: #Monocytes 0.2 thou/uL (0.11-0.59); #Neutrophils 2.8 thou/uL (1.40-6.50); %Eosinophils 0.9 % (0.0-10.0); %Lymphocytes 11.1 % (21.0-51.0); %Monocytes 5.8 % (0.0-10.0); %Neutrophils 81.6 % (42.0-75.0); Hematocrit 24.6 % (42.0-52.0); Hemoglobin 8.6 g/dL (14.0-18.0); Mean Corpuscular Hemoglobin 37.4 pg (27.0-31.0); Mean Platelet Volume 12.1 fL (7.4-10.4); RBC Distribution Width 16.8 % (11.5-14.5); White Blood Cell (WBC) Count 3.4 10x3/uL (4.8-10.8)
[2023-03-23 12:30] LABS: Platelet Count 83 10x3/uL (130-400)
[2023-03-23 12:55] LABS: ALT (SGPT) 33 U/L (8-55); AST (SGOT) 28 U/L (5-34); Albumin 2.9 g/dL (3.4-4.8); Alkaline Phosphatase 105 U/L (40-110); Anion Gap 12 mmol/L (10-20); BUN (Urea Nitrogen) 15 mg/dL (8.4-25.7); Bilirubin, Total 0.8 mg/dL (0.2-1.2); Calc. Creatinine Clearance 0 mL/min (70-130); Calcium 7.9 mg/dL (7.8-10.44); Carbon Dioxide 21 mmol/L (23-31); Chloride 107 mmol/L (98-107); Estimated GFR 87; Glucose 87 mg/dL (83-110); Protein, Total 5.9 g/dL (5.8-8.1); Sodium 137 mmol/L (136-145)
[2023-03-23 13:00] LABS: Troponin I Less than 0.010 ng/mL (< 0.028)
[2023-03-23] MEDS ORDERED: Acetaminophen 325 MG TAB PO PRN (14:40)
[2023-03-23] MEDS ORDERED: Acetaminophen 650 MG Suppository PR PRN (14:40)
[2023-03-23] MEDS ORDERED: Ondansetron PF 4 MG/2 ML Vial IVP PRN (14:40)
[2023-03-23] MEDS ORDERED: Ondansetron ODT 4 MG TAB PO PRN (14:40)
[2023-03-23] MEDS: Sodium Chloride 0.9% 1,000 ML IV SCH (15:35)
[2023-03-23 16:08] VITALS: BMI 26.4
[2023-03-23 18:11] LABS: Hematocrit 25.7 % (42.0-52.0)
[2023-03-23 18:38] LABS: Troponin I Less than 0.010 ng/mL (< 0.028)
[2023-03-23 20:29] LABS: Hematocrit 23.4 % (42.0-52.0); Hemoglobin 8.2 g/dL (14.0-18.0)
[2023-03-23] MEDS: levETIRAcetam 500 mg/5 ml Oral Solution PO SCH (21:02)
[2023-03-23] MEDS: Atorvastatin Calcium 20 MG TAB PO SCH (21:02)
[2023-03-23] MEDS: Ciprofloxacin Lactate/D5W 400 MG in Premix 1 BAG IVPB SCH (22:25)
[2023-03-24 02:53] LABS: Hematocrit 21.1 % (42.0-52.0); Hemoglobin 7.5 g/dL (14.0-18.0)
[2023-03-24 02:55] LABS: #Monocytes 0.2 thou/uL (0.11-0.59); #Neutrophils 2.1 thou/uL (1.40-6.50); %Eosinophils 0.7 % (0.0-10.0); %Lymphocytes 15.9 % (21.0-51.0); %Monocytes 7.4 % (0.0-10.0); %Neutrophils 75.3 % (42.0-75.0); Hematocrit 21.3 % (42.0-52.0); Hemoglobin 7.5 g/dL (14.0-18.0); Mean Corpuscular HGB CONC 35.2 g/dL (32.0-36.0); Mean Corpuscular Hemoglobin 36.9 pg (27.0-31.0); Mean Corpuscular Volume 104.9 fl (78.0-98.0); Mean Platelet Volume 11.8 fL (7.4-10.4); Platelet Count 94 10x3/uL (130-400); RBC Distribution Width 16.6 % (11.5-14.5); Red Blood Cell (RBC) Count 2.03 mill/uL (4.70-6.10); White Blood Cell (WBC) Count 2.8 10x3/uL (4.8-10.8)
[2023-03-24 03:19] LABS: Campy jejuni + coli by PCR Negative (Negative); STEC Shiga Toxin 1+2 Negative (Negative); Salmonella spp. by PCR POSITIVE (Negative); Shigella spp + EIEC by PCR Negative (Negative)
[2023-03-24 03:25] LABS: Anion Gap 10 mmol/L (10-20); BUN (Urea Nitrogen) 15 mg/dL (8.4-25.7); Calc. Creatinine Clearance 80 mL/min (70-130); Calcium 7.3 mg/dL (7.8-10.44); Carbon Dioxide 23 mmol/L (23-31); Chloride 108 mmol/L (98-107); Estimated GFR 87; Glucose 79 mg/dL (83-110); Potassium 2.7 mmol/L (3.5-5.1); Sodium 138 mmol/L (136-145)
[2023-03-24] MEDS: CIPROFLOXACIN LACTATE IVPB SCH (05:39)
[2023-03-24] MEDS: D5W IVPB SCH (05:39)
[2023-03-24] MEDS: Potassium Chloride 20 MEQ TAB PO SCH ×2 (08:47→08:52)
[2023-03-24] MEDS: Folic Acid 1 MG TAB PO SCH (08:52)
[2023-03-24] MEDS: Ciprofloxacin Lactate/D5W 400 MG in Premix 1 BAG IVPB SCH (08:52)
[2023-03-24] MEDS: Saccharomyces boulardii 250 MG CAP PO SCH (08:52)
[2023-03-24 09:39] LABS: Hematocrit 25.1 % (42.0-52.0); Hemoglobin 8.7 g/dL (14.0-18.0)
[2023-03-24 09:59] LABS: Iron Binding Capacity, Total 188 mcg/dL (261-462); Magnesium 1.7 mg/dL (1.6-2.6)
[2023-03-24 10:00] LABS: Iron 35 ug/dL (65-175)
[2023-03-24] MEDS: Dicyclomine 10 MG/5 ML ORAL SOLN UD CUP PO SCH (12:12)
[2023-03-24 15:17] LABS: Hematocrit 25.1 % (42.0-52.0); Hemoglobin 8.5 g/dL (14.0-18.0)
[2023-03-25 06:44] LABS: Hematocrit 22.3 % (42.0-52.0); Hemoglobin 7.9 g/dL (14.0-18.0); Manual Diff?? YES; Mean Corpuscular HGB CONC 35.4 g/dL (32.0-36.0); Mean Corpuscular Hemoglobin 37.4 pg (27.0-31.0); Mean Corpuscular Volume 105.7 fl (78.0-98.0); Mean Platelet Volume 11.7 fL (7.4-10.4); Platelet Count 124 10x3/uL (130-400); RBC Distribution Width 16.9 % (11.5-14.5); Red Blood Cell (RBC) Count 2.11 mill/uL (4.70-6.10); White Blood Cell (WBC) Count 2.6 10x3/uL (4.8-10.8)
[2023-03-25 06:48] LABS: Delete Auto Diff?? YES
[2023-03-25 07:10] LABS: Anion Gap 10 mmol/L (10-20); BUN (Urea Nitrogen) 7 mg/dL (8.4-25.7); Calc. Creatinine Clearance 74 mL/min (70-130); Calcium 7.5 mg/dL (7.8-10.44); Carbon Dioxide 23 mmol/L (23-31); Chloride 110 mmol/L (98-107); Estimated GFR 82; Glucose 84 mg/dL (83-110); Sodium 140 mmol/L (136-145)
[2023-03-25 07:23] LABS: Anisocytosis MARKED = >30 cells HPF (0-5); Band 3 % (5-11); CellaVision Operator ID LAB.KW3; Critical Call Chemistry NUJR.ADH@0723; Eosinophils 1 % (0-10); Large Platelets 43.7 % (0-5); Lymphocytes 8 % (21-51); Monocytes 8 % (0-10); Neutrophil 81 % (42-75); Platelet Adequacy Comment Platelets Decreased; Polychromasia MODERATE = 3-4 cells HPF (0-2); Potassium 2.5 mmol/L (3.5-5.1); Schistocytes SLIGHT = 2-5 cells HPF (0-1); Total Cell Count 103
[2023-03-25] MEDS: Magnesium 2 GM/50 ML(in water) 2 GM in Premix 1 BAG IVPB SCH ×2 (08:31→15:52)
[2023-03-25] MEDS: Ferrous Sulfate 325 MG TAB PO SCH (08:33)
[2023-03-25] MEDS: Potassium Bicarbonate/Cit Ac 20 MEQ TAB PO SCH ×2 (08:34→15:52)
[2023-03-25] MEDS: Potassium Phosphate 15 MMOL in Sodium Chloride 0.9% 100 ML IVPB SCH (08:49)
[2023-03-25] MEDS: Potassium Chloride 20 MEQ TAB PO SCH (09:43)
[2023-03-25 14:28] LABS: Anion Gap 10 mmol/L (10-20); BUN (Urea Nitrogen) 6 mg/dL (8.4-25.7); Calc. Creatinine Clearance 79 mL/min (70-130); Calcium 7.7 mg/dL (7.8-10.44); Carbon Dioxide 24 mmol/L (23-31); Chloride 109 mmol/L (98-107); Estimated GFR 87; Glucose 95 mg/dL (83-110); Potassium 2.8 mmol/L (3.5-5.1); Sodium 140 mmol/L (136-145)
[2023-03-25] MEDS: Potassium Phosphate 30 MMOL in Sodium Chloride 0.9% 500 ML IVPB SCH (17:34)
[2023-03-26 06:44] LABS: #Monocytes 0.2 thou/uL (0.11-0.59); #Neutrophils 1.4 thou/uL (1.40-6.50); %Eosinophils 1.8 % (0.0-10.0); %Lymphocytes 25.9 % (21.0-51.0); %Monocytes 9.6 % (0.0-10.0); %Neutrophils 62.3 % (42.0-75.0); Hematocrit 22.1 % (42.0-52.0); Hemoglobin 7.7 g/dL (14.0-18.0); Mean Corpuscular HGB CONC 34.8 g/dL (32.0-36.0); Mean Corpuscular Volume 106.3 fl (78.0-98.0); Mean Platelet Volume 11.5 fL (7.4-10.4); Platelet Count 157 10x3/uL (130-400); RBC Distribution Width 17.2 % (11.5-14.5); Red Blood Cell (RBC) Count 2.08 mill/uL (4.70-6.10); White Blood Cell (WBC) Count 2.3 10x3/uL (4.8-10.8)
[2023-03-26 07:24] LABS: Anion Gap 11 mmol/L (10-20); BUN (Urea Nitrogen) 4 mg/dL (8.4-25.7); Calc. Creatinine Clearance 88 mL/min (70-130); Calcium 7.3 mg/dL (7.8-10.44); Carbon Dioxide 22 mmol/L (23-31); Chloride 110 mmol/L (98-107); Estimated GFR 90; Glucose 83 mg/dL (83-110); Potassium 2.9 mmol/L (3.5-5.1); Sodium 140 mmol/L (136-145)
[2023-03-26] MEDS: Potassium Chloride 20 MEQ TAB PO SCH (16:32)
[2023-03-26 19:07] VITALS: BP 99/60; TEMP 98.1
[2023-03-26] MEDS ORDERED: Ciprofloxacin 500 MG TAB PO SCH (20:00)
[2023-03-27] MEDS ORDERED: Potassium Chloride 20 MEQ TAB PO SCH (08:00)
== END 2023-03-26 19:19 | DRG 371 ==
LOC: ERS 11:19 → ERHOLD 12:55 → 2NO 15:45
PROVIDERS: ADMIT Internal Medicine; ATTEND Emergency Medicine
DX: A02.0 Salmonella enteritis (principal); D61.810 Antineoplastic chemotherapy induced pancytopenia; C90.00 Multiple myeloma not having achieved remission; D64.9 Anemia, unspecified; E86.0 Dehydration; Z79.899 Other long term (current) drug therapy; I50.9 Heart failure, unspecified; I11.0 Hypertensive heart disease with heart failure; I25.2 Old myocardial infarction; Z90.49 Acquired absence of other specified parts of digestive tract; Z98.890 Other specified postprocedural states; T45.1X5A Adverse effect of antineoplastic and immunosuppressive drugs, initial encounter; E87.6 Hypokalemia; E78.5 Hyperlipidemia, unspecified
CPT/HCPCS: 36415; 80048; 83540; 83550; 83735; 85025; 86850; 86870; 86900; 86901; 86922; 87324; 87449; 87505; 93005; 94760; J0744; J3475; J3490; J7030; J7050

== ENCOUNTER 2023-04-09 17:41 | Inpatient (IN) | payer MEDICARE, BC ==
[2023-04-09] MEDS ORDERED: Acetaminophen 325 MG TAB PO PRN (22:17)
[2023-04-09] MEDS ORDERED: Ondansetron PF 4 MG/2 ML Vial IVP PRN (22:17)
[2023-04-09] MEDS ORDERED: Ondansetron ODT 4 MG TAB PO PRN (22:17)
[2023-04-09] MEDS ORDERED: Lidocaine 4% Patch TD PRN (22:26)
[2023-04-09] MEDS ORDERED: Acetaminophen/Codeine 30-300mg Tablet PO PRN (22:26)
[2023-04-09 23:13] VITALS: BMI 23.2
[2023-04-10] MEDS ORDERED: Electrolyte Replacement Protocol 1 EACH FS SCH (01:15)
[2023-04-10] MEDS ORDERED: Lorazepam 2 MG/ML VIAL SLOW IVP PRN (01:27)
[2023-04-10] MEDS: Magnesium 2 GM/50 ML(in water) 2 GM in Premix 1 BAG IVPB SCH ×2 (03:15→03:16)
[2023-04-10] MEDS: Sodium Chloride 0.9% 1,000 ML IV SCH (03:15)
[2023-04-10 04:08] LABS: #Monocytes 0.5 thou/uL (0.11-0.59); #Neutrophils 4.3 thou/uL (1.40-6.50); %Basophils 0.2 % (0.0-1.0); %Eosinophils 0.5 % (0.0-10.0); %Lymphocytes 24.4 % (21.0-51.0); %Monocytes 7.6 % (0.0-10.0); Hemoglobin 9.9 g/dL (14.0-18.0); Mean Corpuscular HGB CONC 34.1 g/dL (32.0-36.0); Mean Corpuscular Hemoglobin 36.7 pg (27.0-31.0); Mean Corpuscular Volume 107.4 fl (78.0-98.0); Mean Platelet Volume 10.8 fL (7.4-10.4); Platelet Count 145 10x3/uL (130-400); RBC Distribution Width 17.2 % (11.5-14.5); White Blood Cell (WBC) Count 6.4 10x3/uL (4.8-10.8)
[2023-04-10 05:10] LABS: Anion Gap 12 mmol/L (10-20); BUN (Urea Nitrogen) 24 mg/dL (8.4-25.7); Calc. Creatinine Clearance 43 mL/min (70-130); Calcium 8.9 mg/dL (7.8-10.44); Carbon Dioxide 18 mmol/L (23-31); Chloride 109 mmol/L (98-107); Estimated GFR 49; Glucose 97 mg/dL (83-110); Magnesium 2.4 mg/dL (1.6-2.6); Potassium 2.8 mmol/L (3.5-5.1); Sodium 136 mmol/L (136-145)
[2023-04-10] MEDS: Ferrous Sulfate 325 MG TAB PO SCH (08:21)
[2023-04-10] MEDS: Potassium Chloride 20 MEQ TAB PO SCH ×2 (08:22→09:52)
[2023-04-10] MEDS: Cholecalciferol 1,000 UNITS (25 MCG) TAB PO SCH (08:23)
[2023-04-10] MEDS: levETIRAcetam 500 mg/5 ml Oral Solution PO SCH (08:23)
[2023-04-10] MEDS: Saccharomyces boulardii 250 MG CAP PO SCH (08:23)
[2023-04-10] MEDS: Folic Acid 1 MG TAB PO SCH (08:23)
[2023-04-10] MEDS: Potassium Chloride 40 MEQ in Sodium Chloride 0.45% 1,000 ML IV SCH (17:24)
[2023-04-10 17:58] LABS: Potassium 3.3 mmol/L (3.5-5.1)
[2023-04-10 18:02] LABS: Phosphorus 1.8 mg/dL (2.3-4.7)
[2023-04-10 20:14] LABS: Bacteria/HPF None Seen HPF (None Seen); Bilirubin Negative (Negative); Blood, Urine Negative (Negative); CAUTI Indications for Culture Alt mental st,lethar; Clarity Clear (Clear); Glucose, Urine (Dipstick) Normal (Negative); Ketone, Urine Negative (Negative); Leukocyte Negative Leu/uL (Negative); Nitrite Negative (Negative); Protein, Urine (Dipstick) 50 mg/dL (Neg-Trace); RBC/HPF 0-3 HPF (0-3); Specific Gravity, Urine 1.035 (1.002-1.036); Squamous Epithelial None Seen HPF (0-3); Urobilinogen Normal mg/dL (Less than 2)
[2023-04-10 20:15] LABS: Urine Culture Reflex No No
[2023-04-10] MEDS ORDERED: Folic Acid 1 MG TAB PO SCH (21:00)
[2023-04-10] MEDS ORDERED: Cyanocobalamin (Vitamin B-12) 1,000 MCG TAB PO SCH (21:00)
[2023-04-10] MEDS: Potassium Phosphate 30 MMOL in Sodium Chloride 0.9% 250 ML 250 ML IVPB SCH (23:10)
[2023-04-10] MEDS: Atorvastatin Calcium 20 MG TAB PO SCH (23:10)
[2023-04-11] MEDS: Transdermal Patch Removal TOP SCH (01:21)
[2023-04-11 07:28] LABS: #Eosinphils 0.1 thou/uL (0.0-0.7); #Monocytes 0.3 thou/uL (0.11-0.59); #Neutrophils 2.3 thou/uL (1.40-6.50); %Basophils 0.3 % (0.0-1.0); %Eosinophils 1.3 % (0.0-10.0); %Lymphocytes 30.8 % (21.0-51.0); %Monocytes 7.3 % (0.0-10.0); Hematocrit 27.7 % (42.0-52.0); Hemoglobin 9.6 g/dL (14.0-18.0); Mean Corpuscular HGB CONC 34.7 g/dL (32.0-36.0); Mean Corpuscular Hemoglobin 37.5 pg (27.0-31.0); Mean Corpuscular Volume 108.2 fl (78.0-98.0); Mean Platelet Volume 10.9 fL (7.4-10.4); Platelet Count 114 10x3/uL (130-400); RBC Distribution Width 17.2 % (11.5-14.5); Red Blood Cell (RBC) Count 2.56 mill/uL (4.70-6.10); White Blood Cell (WBC) Count 3.8 10x3/uL (4.8-10.8)
[2023-04-11 08:05] LABS: Anion Gap 12 mmol/L (10-20); BUN (Urea Nitrogen) 19 mg/dL (8.4-25.7); Calc. Creatinine Clearance 70 mL/min (70-130); Calcium 8.6 mg/dL (7.8-10.44); Carbon Dioxide 18 mmol/L (23-31); Chloride 113 mmol/L (98-107); Estimated GFR 86; Glucose 82 mg/dL (83-110); Magnesium 1.8 mg/dL (1.6-2.6); Potassium 3.8 mmol/L (3.5-5.1); Sodium 139 mmol/L (136-145)
[2023-04-11 08:20] LABS: Vitamin D, 25 Hydroxy 20.7 ng/ml (> 30.0)
[2023-04-11] MEDS: Ergocalciferol 1.25 MG(50,000 UNITS) CAP PO SCH (14:12)
[2023-04-11] MEDS: Magnesium 2 GM/50 ML(in water) 2 GM in Premix 1 BAG IVPB SCH (14:12)
[2023-04-11] MEDS: Folic Acid 1 MG TAB PO SCH (21:10)
[2023-04-11] MEDS: Cyanocobalamin (Vitamin B-12) 1,000 MCG TAB PO SCH (21:10)
[2023-04-12 04:14] LABS: #Eosinphils 0.1 thou/uL (0.0-0.7); #Monocytes 0.2 thou/uL (0.11-0.59); #Neutrophils 1.9 thou/uL (1.40-6.50); %Basophils 0.3 % (0.0-1.0); %Eosinophils 2.3 % (0.0-10.0); %Lymphocytes 36.6 % (21.0-51.0); %Monocytes 6.6 % (0.0-10.0); %Neutrophils 53.9 % (42.0-75.0); Hematocrit 26.1 % (42.0-52.0); Hemoglobin 8.9 g/dL (14.0-18.0); Mean Corpuscular HGB CONC 34.1 g/dL (32.0-36.0); Mean Corpuscular Volume 105.7 fl (78.0-98.0); Mean Platelet Volume 11.1 fL (7.4-10.4); RBC Distribution Width 16.6 % (11.5-14.5); Red Blood Cell (RBC) Count 2.47 mill/uL (4.70-6.10); White Blood Cell (WBC) Count 3.5 10x3/uL (4.8-10.8)
[2023-04-12 04:15] LABS: Platelet Count 109 10x3/uL (130-400)
[2023-04-12 04:49] LABS: Anion Gap 14 mmol/L (10-20); BUN (Urea Nitrogen) 15 mg/dL (8.4-25.7); Calc. Creatinine Clearance 78 mL/min (70-130); Calcium 8.4 mg/dL (7.8-10.44); Carbon Dioxide 18 mmol/L (23-31); Chloride 111 mmol/L (98-107); Estimated GFR 89; Glucose 87 mg/dL (83-110); Potassium 3.8 mmol/L (3.5-5.1); Sodium 139 mmol/L (136-145)
[2023-04-12 04:59] LABS: Phosphorus 1.8 mg/dL (2.3-4.7)
[2023-04-12] MEDS: PHOS-NAK 1 PKT PACK PO SCH (08:51)
[2023-04-12] MEDS: Magnesium 2 GM/50 ML(in water) 2 GM in Premix 1 BAG IVPB SCH (08:52)
[2023-04-12 13:55] LABS: Campy jejuni + coli by PCR Negative (Negative); STEC Shiga Toxin 1+2 Negative (Negative); Salmonella spp. by PCR Negative (Negative); Shigella spp + EIEC by PCR Negative (Negative)
[2023-04-12] MEDS: Midodrine HCl 5 MG TAB PO SCH (21:37)
[2023-04-12] MEDS: Loperamide HCl 2 MG CAP PO SCH (22:49)
[2023-04-13 03:43] LABS: #Eosinphils 0.1 thou/uL (0.0-0.7); #Monocytes 0.2 thou/uL (0.11-0.59); #Neutrophils 3.2 thou/uL (1.40-6.50); %Eosinophils 1.8 % (0.0-10.0); %Lymphocytes 20.8 % (21.0-51.0); %Neutrophils 72.2 % (42.0-75.0); Hemoglobin 8.7 g/dL (14.0-18.0); Mean Corpuscular HGB CONC 34.8 g/dL (32.0-36.0); Mean Corpuscular Hemoglobin 37.2 pg (27.0-31.0); Mean Corpuscular Volume 106.8 fl (78.0-98.0); Mean Platelet Volume 10.8 fL (7.4-10.4); Platelet Count 100 10x3/uL (130-400); RBC Distribution Width 16.6 % (11.5-14.5); Red Blood Cell (RBC) Count 2.34 mill/uL (4.70-6.10); White Blood Cell (WBC) Count 4.4 10x3/uL (4.8-10.8)
[2023-04-13 04:32] LABS: Anion Gap 13 mmol/L (10-20); BUN (Urea Nitrogen) 11 mg/dL (8.4-25.7); Calc. Creatinine Clearance 82 mL/min (70-130); Calcium 8.2 mg/dL (7.8-10.44); Carbon Dioxide 19 mmol/L (23-31); Chloride 110 mmol/L (98-107); Estimated GFR 91; Glucose 81 mg/dL (83-110); Potassium 3.3 mmol/L (3.5-5.1); Sodium 139 mmol/L (136-145)
[2023-04-13] MEDS: Potassium Chloride 20 MEQ TAB PO SCH (08:29)
[2023-04-13] MEDS: K-Phos Neutral 250 MG TAB PO SCH (17:41)
[2023-04-13] MEDS: Loperamide HCl 2 MG CAP PO PRN (17:41)
[2023-04-13] MEDS: Midodrine HCl 5 MG TAB PO SCH (20:55)
[2023-04-14 06:01] LABS: Phosphorus 2.2 mg/dL (2.3-4.7)
[2023-04-14 06:10] LABS: Anion Gap 11 mmol/L (10-20); BUN (Urea Nitrogen) 11 mg/dL (8.4-25.7); Calc. Creatinine Clearance 79 mL/min (70-130); Calcium 8.4 mg/dL (7.8-10.44); Carbon Dioxide 20 mmol/L (23-31); Chloride 108 mmol/L (98-107); Estimated GFR 90; Glucose 86 mg/dL (83-110); Potassium 3.4 mmol/L (3.5-5.1); Sodium 136 mmol/L (136-145)
[2023-04-14] MEDS: Potassium Chloride 20 MEQ TAB PO SCH (09:59)
[2023-04-14 15:58] VITALS: BP 101/55; TEMP 97.9
[2023-04-18] MEDS ORDERED: Ergocalciferol 1.25 MG(50,000 UNITS) CAP PO SCH (09:00)
== END 2023-04-14 19:20 | DRG 83 ==
LOC: 2SE 17:41 → OBSVTOIN 22:17 → 2SE 04-10 15:51
PROVIDERS: ADMIT Physician Assistant; ATTEND Family Medicine
DX: S06.5XAA Traumatic subdural hemorrhage with loss of consciousness status unknown, initial encounter (principal); C90.00 Multiple myeloma not having achieved remission; D61.818 Other pancytopenia; I24.0 Acute coronary thrombosis not resulting in myocardial infarction; N17.9 Acute kidney failure, unspecified; I50.22 Chronic systolic (congestive) heart failure; I13.0 Hypertensive heart and chronic kidney disease with heart failure and stage 1 through stage 4 chronic kidney disease, or unspecified chronic kidney disease; I62.03 Nontraumatic chronic subdural hemorrhage; E78.5 Hyperlipidemia, unspecified; E87.6 Hypokalemia; K52.9 Noninfective gastroenteritis and colitis, unspecified; G40.909 Epilepsy, unspecified, not intractable, without status epilepticus; I25.5 Ischemic cardiomyopathy; I08.1 Rheumatic disorders of both mitral and tricuspid valves; N18.2 Chronic kidney disease, stage 2 (mild); E86.0 Dehydration; E83.42 Hypomagnesemia; E83.39 Other disorders of phosphorus metabolism; E53.8 Deficiency of other specified B group vitamins; W19.XXXA Unspecified fall, initial encounter; I95.9 Hypotension, unspecified; I25.2 Old myocardial infarction; Z79.899 Other long term (current) drug therapy; Z98.890 Other specified postprocedural states; Z90.49 Acquired absence of other specified parts of digestive tract; Z87.891 Personal history of nicotine dependence; Z91.81 History of falling; Y92.009 Unspecified place in unspecified non-institutional (private) residence as the place of occurrence of the external cause
CPT/HCPCS: 36415; 80048; 81001; 82306; 82607; 83735; 84100; 85025; 87324; 87328; 87329; 87449; 87505; 93306; J3475; J3480; J7050

== ENCOUNTER 2023-06-03 07:04 | Observation (INO) | payer MEDICARE, BC ==
[2023-06-03] MEDS ORDERED: Etomidate 40 MG (20 mL) VIAL ONE (09:33)
[2023-06-03] MEDS ORDERED: Indomethacin 50 MG SUPP ONE (09:35)
[2023-06-03] MEDS ORDERED: Iopamidol 30 ML ONE ×2 (09:36→10:43)
[2023-06-03] MEDS ORDERED: Vasopressin 20 UNITS/ML VIAL ONE (09:38)
[2023-06-03] MEDS ORDERED: LevoFLOXacin D5W 500 mg (100 mL) BAG ONE (09:49)
[2023-06-03] MEDS ORDERED: Ondansetron HCl/PF 4 MG/2 ML Vial IVP PRN (09:52)
[2023-06-03] MEDS ORDERED: Morphine Sulfate 2 MG/ML SYRINGE SLOW IVP PRN (09:52)
[2023-06-03] MEDS ORDERED: Promethazine HCl 25 MG/ML VIAL IM PRN (09:52)
[2023-06-03] MEDS ORDERED: ePHEDrine Sulfate 50 MG/10 ML VIAL ONE (10:00)
[2023-06-03] MEDS ORDERED: PHENYLEPHRINE-NS 100 MCG/ML 10 ML SYRINGE ONE (10:02)
[2023-06-03] MEDS ORDERED: Rocuronium Bromide 10 MG/ML (10ML VIAL) ONE (10:02)
[2023-06-03] MEDS ORDERED: SUCCINYLCHOLINE/SOD CL,ISO/PF 200 MG/10 ML SYRINGE FS ONE (10:02)
[2023-06-03] MEDS ORDERED: Lidocaine 1% PF 5 ML VIAL ONE (10:02)
[2023-06-03] MEDS ORDERED: Dexamethasone 4 mg/ml Vial ONE (10:11)
[2023-06-03] MEDS ORDERED: Ondansetron PF 4 MG/2 ML Vial ONE ×2 (10:11→12:02)
[2023-06-03] MEDS ORDERED: fentaNYL 50 mcg/mL 1 mL Vial ONE ×2 (10:24→12:04)
[2023-06-03] MEDS ORDERED: Esmolol 100 MG/10 ML VIAL ONE (10:34)
[2023-06-03] MEDS ORDERED: Ondansetron PF 4 MG/2 ML Vial IVP PRN (13:52)
[2023-06-03] MEDS: Midodrine HCl 5 MG TAB PO SCH (15:54)
[2023-06-03] MEDS: Cholestyramine/Aspartame 4 gm Packet PO SCH (15:54)
[2023-06-03] MEDS: Atorvastatin Calcium 20 MG TAB PO SCH (20:26)
[2023-06-03] MEDS: Famotidine/PF 20 mg/2ml Vial SLOW IVP SCH (20:26)
[2023-06-03] MEDS: levETIRAcetam 500 mg/5 ml Oral Solution PO SCH (20:26)
[2023-06-04 06:07] LABS: #Basophils Less than 0.03 10x3/uL (0.0-0.2); #Eosinphils Less than 0.03 10x3/uL (0.0-0.7); %Lymphocytes 18.7 % (21.0-51.0); %Neutrophils 75.1 % (42.0-75.0); Hematocrit 26.2 % (42.0-52.0); Hemoglobin 9.1 g/dL (14.0-18.0); Mean Corpuscular HGB CONC 34.7 g/dL (32.0-36.0); Mean Corpuscular Hemoglobin 37.8 pg (27.0-31.0); Mean Corpuscular Volume 108.7 fL (78.0-98.0); Mean Platelet Volume 10.8 fL (7.4-10.4); Platelet Count 149 10x3/uL (130-400); RBC Distribution Width 15.5 % (11.5-14.5); Red Blood Cell (RBC) Count 2.41 mill/uL (4.70-6.10)
[2023-06-04] MEDS: LevoFLOXacin 750 mg/D5W 750 MG in Premix 1 BAG IVPB SCH (06:08)
[2023-06-04 06:31] LABS: Anion Gap 14 mmol/L (10-20)
[2023-06-04 06:35] LABS: ALT (SGPT) 83 U/L (8-55); AST (SGOT) 65 U/L (5-34); Albumin 2.5 g/dL (3.4-4.8); Alkaline Phosphatase 398 U/L (40-110); BUN (Urea Nitrogen) 17 mg/dL (8.4-25.7); Bilirubin, Total 0.7 mg/dL (0.2-1.2); Calc. Creatinine Clearance 63 mL/min (70-130); Calcium 8.8 mg/dL (7.8-10.44); Carbon Dioxide 17 mmol/L (23-31); Chloride 109 mmol/L (98-107); Estimated GFR 72; Glucose 96 mg/dL (83-110); Lipase 24 U/L (8-78); Potassium 3.9 mmol/L (3.5-5.1); Protein, Total 7.5 g/dL (5.8-8.1); Sodium 136 mmol/L (136-145)
[2023-06-04 07:53] VITALS: TEMP 97.2
[2023-06-04] MEDS: Folic Acid 1 MG TAB PO SCH (08:43)
[2023-06-04] MEDS: Cholecalciferol 1,000 UNITS (25 MCG) TAB PO SCH (08:43)
[2023-06-04] MEDS: Saccharomyces boulardii 250 MG CAP PO SCH (08:44)
[2023-06-04] MEDS: Cyanocobalamin (Vitamin B-12) 1,000 MCG TAB PO SCH (08:44)
[2023-06-04] MEDS: Sodium Bicarbonate Tab 325 MG TAB PO SCH (08:48)
[2023-06-04 10:17] VITALS: BMI 21.9
[2023-06-04 11:40] VITALS: BP 110/68
== END 2023-06-04 11:47 | disposition home or self-care (01) ==
LOC: SDC 07:04 → T4-A 12:30
PROVIDERS: ADMIT Internal Medicine Gastroenterology; ATTEND Internal Medicine Gastroenterology
PROC: 0F768ZZ Dilation of Left Hepatic Duct, Via Natural or Artificial Opening Endoscopic (ICD-10-PCS; principal; 2023-06-03)
PROC: 0FPB8DZ Removal of Intraluminal Device from Hepatobiliary Duct, Via Natural or Artificial Opening Endoscopic (ICD-10-PCS; 2023-06-03)
DX: T85.590A Other mechanical complication of bile duct prosthesis, initial encounter (principal); K83.1 Obstruction of bile duct; R94.5 Abnormal results of liver function studies; I13.0 Hypertensive heart and chronic kidney disease with heart failure and stage 1 through stage 4 chronic kidney disease, or unspecified chronic kidney disease; I50.20 Unspecified systolic (congestive) heart failure; N18.2 Chronic kidney disease, stage 2 (mild); G40.909 Epilepsy, unspecified, not intractable, without status epilepticus; D64.9 Anemia, unspecified; Z90.49 Acquired absence of other specified parts of digestive tract; Z87.891 Personal history of nicotine dependence; Y73.8 Miscellaneous gastroenterology and urology devices associated with adverse incidents, not elsewhere classified
CPT/HCPCS: 43276; 74330; 80053; 83690; 85025; C2625; J3010; 36415; J1100; J1956; J2405; Q9967; S0028

== ENCOUNTER 2023-08-20 08:11 | Day surgery (SDC) | payer MEDICARE, BC ==
[2023-08-20] MEDS ORDERED: Acetaminophen 500 MG TAB ONE (08:53)
[2023-08-20] MEDS ORDERED: diphenhydrAMINE 25 MG CAP ONE (08:54)
[2023-08-20] MEDS: diphenhydrAMINE 25 MG CAP PO SCH (08:57)
[2023-08-20] MEDS: Acetaminophen 500 MG TAB PO SCH (08:57)
[2023-08-20 16:11] VITALS: BP 140/67; TEMP 97.5
== END 2023-08-20 16:12 | disposition home or self-care (01) ==
LOC: ONC/OP 08:11
PROVIDERS: ATTEND Internal Medicine Hematology & Oncology
DX: D64.9 Anemia, unspecified (principal)
CPT/HCPCS: 36430; 86850; 86900; 86901; 86920; 86922; P9016

== ENCOUNTER 2023-12-09 09:50 | Day surgery (SDC) | payer MEDICARE, BC ==
[2023-12-09] MEDS ORDERED: diphenhydrAMINE 25 MG CAP PO SCH (10:15)
[2023-12-09] MEDS ORDERED: Acetaminophen 500 MG TAB ONE (10:58)
[2023-12-09] MEDS: Acetaminophen 500 MG TAB PO SCH (10:59)
[2023-12-09] MEDS ORDERED: FLU (Fluad Triv) TS24-25 (65UP)/MF59C/PF 45 MCG/0.5 ML Syringe IM ONE (11:30)
[2023-12-09 15:57] VITALS: BP 128/58; TEMP 97.6
== END 2023-12-09 16:11 | disposition home or self-care (01) ==
LOC: ONC/OP 09:50
PROVIDERS: ATTEND Internal Medicine Hematology & Oncology
DX: D64.9 Anemia, unspecified (principal); D69.6 Thrombocytopenia, unspecified
CPT/HCPCS: 36430; 86850; 86900; 86901; 86920; 86922; P9016

== ENCOUNTER 2023-12-23 19:33 | Inpatient (IN) | payer MEDICARE, BC ==
[~2023-12-23 19:33] MED LIST changes: -Iopamidol-370 76% 500 ML 1 ML ONE; +Iopamidol-370 76% 500 ML MDV (1 ML CHARGE) ONE
[2023-12-23] MEDS ORDERED: LevoFLOXacin 750 mg/D5W 150 ml Premix Bag ONE (20:14)
[2023-12-23] MEDS ORDERED: Cefepime 2 GM VIAL ONE (20:14)
[2023-12-23 20:24] LABS: Bilirubin Negative (Negative); Blood, Urine Negative (Negative); CAUTI Indications for Culture Alt mental st,lethar; Clarity Clear (Clear); Glucose, Urine (Dipstick) Normal (Negative); Ketone, Urine Negative (Negative); Leukocyte Negative Leu/uL (Negative); Nitrite Negative (Negative); Protein, Urine (Dipstick) 10 mg/dL (Neg-Trace); RBC/HPF 0-3 HPF (0-3); Specific Gravity, Urine 1.003 (1.002-1.036); Squamous Epithelial None Seen HPF (0-3); Urobilinogen Normal mg/dL (Less than 2); WBC/HPF None Seen HPF (0-3)
[2023-12-23] MEDS ORDERED: NOREPINEPHRINE 8 MG/250 ML-D5W 250 ML ONE (20:32)
[2023-12-23 20:33] LABS: Hemoglobin 9.3 g/dL (14.0-18.0); Mean Corpuscular HGB CONC 34.4 g/dL (32.0-36.0); Mean Corpuscular Hemoglobin 37.7 pg (27.0-31.0); Mean Corpuscular Volume 109.3 fL (78.0-98.0); Mean Platelet Volume 11.1 fL (7.4-10.4); Platelet Count 82 10x3/uL (130-400); RBC Distribution Width 17.7 % (11.5-14.5); Red Blood Cell (RBC) Count 2.47 mill/uL (4.70-6.10)
[2023-12-23 20:36] LABS: Bacteria/HPF Rare-Few HPF (None Seen)
[2023-12-23 20:37] LABS: Urine Culture Reflex No No
[2023-12-23 20:50] LABS: ALT (SGPT) 88 U/L (8-55); AST (SGOT) 70 U/L (5-34); Albumin 2.5 g/dL (3.4-4.8); Alkaline Phosphatase 198 U/L (40-110); Anion Gap 14 mmol/L (10-20); BUN (Urea Nitrogen) 12 mg/dL (8.4-25.7); Bilirubin, Total 0.5 mg/dL (0.2-1.2); Calc. Creatinine Clearance 0 mL/min (70-130); Calcium 7.7 mg/dL (7.8-10.44); Carbon Dioxide 16 mmol/L (23-31); Chloride 112 mmol/L (98-107); Estimated GFR 91; Globulin 3.7 g/dL (2.4-3.5); Glucose 96 mg/dL (83-110); Potassium 2.4 mmol/L (3.5-5.1); Protein, Total 6.2 g/dL (5.8-8.1); Sodium 140 mmol/L (136-145)
[2023-12-23 21:02] LABS: Anisocytosis SLIGHT = 6-15 cells HPF (0-5); Band 19 % (5-11); Large Platelets 23.5 % (0-5); Lymphocytes 8 % (21-51); Macrocytosis SLIGHT = 6-15 cells HPF (0-5); Metamyelocyte 1 % (0-0); Neutrophil 71 % (42-75); Nucleated RBC (Manual Ct) 1 % (0); Platelet Adequacy Comment Platelets Decreased; Polychromasia SLIGHT = 2-3 cells HPF (0-2); Vacuoles SLIGHT
[2023-12-23] MEDS ORDERED: Potassium Chloride 20 MEQ TAB ONE (21:53)
[2023-12-23] MEDS ORDERED: Potassium Chloride 20 MEQ in Premix 1 BAG IVPB SCH (22:15)
[2023-12-23] MEDS ORDERED: NOREPINEPHRINE 8 MG/250 ML-D5W 250 ML IVPB SCH (22:15)
[2023-12-24] MEDS ORDERED: Electrolyte Replacement Protocol 1 EACH FS PRN (00:08)
[2023-12-24] MEDS: VANCOMYCIN 1.25 GM/250 ML BAG 1.25 GM in Premix 1 BAG IVPB SCH (01:11)
[2023-12-24 01:12] LABS: Lactic Acid 1.63 mmol/L (0.5-2.2)
[2023-12-24] MEDS: Pantoprazole 40 MG VIAL IVP SCH (01:20)
[2023-12-24] MEDS: Piperacillin/Tazobactam 3.375 GM in Sodium Chloride 0.9% 100 ML IVPB SCH ×2 (01:21→06:55)
[2023-12-24] MEDS: Midodrine HCl 5 MG TAB PO SCH ×2 (01:21→09:34)
[2023-12-24] MEDS: Albumin 25% 25 GM (100 mL) BOT IVPB SCH (01:21)
[2023-12-24] MEDS: Potassium Chloride 40 MEQ in Sodium Chloride 0.9% 250 ML 250 ML IVPB SCH (01:22)
[2023-12-24 04:08] LABS: Influenza A by NAA Not Detected (NotDetected); Influenza B by NAA Not Detected (NotDetected); SARS-CoV-2 NAA Rapid Test Not Detected (NotDetected)
[2023-12-24 04:14] LABS: Hematocrit 26.4 % (42.0-52.0); Hemoglobin 8.9 g/dL (14.0-18.0); Mean Corpuscular HGB CONC 33.7 g/dL (32.0-36.0); Mean Corpuscular Hemoglobin 37.9 pg (27.0-31.0); Mean Corpuscular Volume 112.3 fL (78.0-98.0); Mean Platelet Volume 10.7 fL (7.4-10.4); Platelet Count 78 10x3/uL (130-400); RBC Distribution Width 18.3 % (11.5-14.5); Red Blood Cell (RBC) Count 2.35 mill/uL (4.70-6.10)
[2023-12-24 04:27] LABS: ALT (SGPT) 72 U/L (8-55); AST (SGOT) 51 U/L (5-34); Albumin 2.6 g/dL (3.4-4.8); Alkaline Phosphatase 154 U/L (40-110); Anion Gap 14 mmol/L (10-20); BUN (Urea Nitrogen) 11 mg/dL (8.4-25.7); Bilirubin, Total 0.5 mg/dL (0.2-1.2); Calc. Creatinine Clearance 65 mL/min (70-130); Calcium 7.6 mg/dL (7.8-10.44); Carbon Dioxide 15 mmol/L (23-31); Chloride 115 mmol/L (98-107); Estimated GFR 87; Globulin 3.5 g/dL (2.4-3.5); Glucose 99 mg/dL (83-110); Magnesium 1.2 mg/dL (1.6-2.6); Potassium 3.1 mmol/L (3.5-5.1); Protein, Total 6.1 g/dL (5.8-8.1); Sodium 141 mmol/L (136-145)
[2023-12-24 05:06] LABS: Anisocytosis SLIGHT = 6-15 cells HPF (0-5); Band 24 % (5-11); Large Platelets 3.9 % (0-5); Lymphocytes 7 % (21-51); Macrocytosis MODERATE=16-30 cells HPF (0-5); Metamyelocyte 1 % (0-0); Monocytes 2 % (0-10); Neutrophil 67 % (42-75); Ovalocytes SLIGHT = 2-5 cells HPF (0-1); Platelet Adequacy Comment Platelets Decreased; Polychromasia SLIGHT = 2-3 cells HPF (0-2); Toxic Granulation SLIGHT
[2023-12-24] MEDS ORDERED: Piperacillin/Tazobactam 4.5 GM in Sodium Chloride 0.9% 100 ML IVPB SCH (06:00)
[2023-12-24] MEDS ORDERED: Vancomycin 1.5 GM in Sodium Chloride 0.9% 250 ML 300 ML IVPB SCH (09:00)
[2023-12-24] MEDS: Magnesium Sulfate In Water 4 GM in Premix 1 BAG IVPB SCH (09:35)
[2023-12-24] MEDS: Vancomycin 1 GM in Premix 1 BAG IVPB SCH (09:35)
[2023-12-24 11:19] LABS: Potassium 4.2 mmol/L (3.5-5.1)
[2023-12-24 18:11] LABS: Critical Call Chemistry NUR.ERG
[2023-12-24 18:12] LABS: Magnesium 2.4 mg/dL (1.6-2.6); Phosphorus 1.3 mg/dL (2.3-4.7)
[2023-12-24] MEDS: PHOS-NAK 1 PKT PACK PO SCH (22:21)
[2023-12-25] MEDS: PHOS-NAK 1 PKT PACK PO SCH (04:32)
[2023-12-25 04:38] LABS: Hematocrit 27.1 % (42.0-52.0); Hemoglobin 9.1 g/dL (14.0-18.0); Mean Corpuscular HGB CONC 33.6 g/dL (32.0-36.0); Mean Corpuscular Volume 110.2 fL (78.0-98.0); Mean Platelet Volume 11.7 fL (7.4-10.4); Platelet Count 78 10x3/uL (130-400); RBC Distribution Width 18.4 % (11.5-14.5); Red Blood Cell (RBC) Count 2.46 mill/uL (4.70-6.10)
[2023-12-25 04:42] LABS: ALT (SGPT) 56 U/L (8-55); AST (SGOT) 47 U/L (5-34); Albumin 2.3 g/dL (3.4-4.8); Alkaline Phosphatase 141 U/L (40-110); Anion Gap 11 mmol/L (10-20); BUN (Urea Nitrogen) 10 mg/dL (8.4-25.7); Bilirubin, Total 0.8 mg/dL (0.2-1.2); Calc. Creatinine Clearance 73 mL/min (70-130); Calcium 7.6 mg/dL (7.8-10.44); Carbon Dioxide 18 mmol/L (23-31); Chloride 113 mmol/L (98-107); Estimated GFR 90; Globulin 3.5 g/dL (2.4-3.5); Glucose 76 mg/dL (83-110); Potassium 3.5 mmol/L (3.5-5.1); Protein, Total 5.8 g/dL (5.8-8.1); Sodium 138 mmol/L (136-145)
[2023-12-25 05:13] VITALS: BMI 21.3
[2023-12-25 05:46] LABS: Band 24 % (5-11); Lymphocytes 11 % (21-51); Macrocytosis MODERATE=16-30 cells HPF (0-5); Neutrophil 65 % (42-75); Platelet Adequacy Comment Platelets Decreased; Polychromasia SLIGHT = 2-3 cells HPF (0-2); Tear Drops SLIGHT = 2-5 cells HPF (0-1)
[2023-12-25] MEDS: Loperamide HCl 2 MG CAP PO PRN (09:51)
[2023-12-25] MEDS: Potassium Chloride 20 MEQ TAB PO SCH (09:51)
[2023-12-26 05:03] LABS: ALT (SGPT) 63 U/L (8-55); AST (SGOT) 55 U/L (5-34); Albumin 2.4 g/dL (3.4-4.8); Alkaline Phosphatase 197 U/L (40-110); Anion Gap 13 mmol/L (10-20); BUN (Urea Nitrogen) 8 mg/dL (8.4-25.7); Bilirubin, Total 0.6 mg/dL (0.2-1.2); Calc. Creatinine Clearance 76 mL/min (70-130); Calcium 8.2 mg/dL (7.8-10.44); Carbon Dioxide 19 mmol/L (23-31); Chloride 113 mmol/L (98-107); Estimated GFR 91; Globulin 3.8 g/dL (2.4-3.5); Glucose 78 mg/dL (83-110); Potassium 3.8 mmol/L (3.5-5.1); Protein, Total 6.2 g/dL (5.8-8.1); Sodium 141 mmol/L (136-145)
[2023-12-26 05:09] LABS: Hematocrit 27.6 % (42.0-52.0); Hemoglobin 9.3 g/dL (14.0-18.0); Mean Corpuscular HGB CONC 33.7 g/dL (32.0-36.0); Mean Corpuscular Hemoglobin 36.8 pg (27.0-31.0); Mean Corpuscular Volume 109.1 fL (78.0-98.0); Mean Platelet Volume 11.7 fL (7.4-10.4); Platelet Count 84 10x3/uL (130-400); Red Blood Cell (RBC) Count 2.53 mill/uL (4.70-6.10)
[2023-12-26 05:54] LABS: Anisocytosis SLIGHT = 6-15 cells HPF (0-5); Band 5 % (5-11); Lymphocytes 10 % (21-51); Macrocytosis MODERATE=16-30 cells HPF (0-5); Monocytes 2 % (0-10); Neutrophil 83 % (42-75); Platelet Adequacy Comment Platelets Decreased; Polychromasia MODERATE = 3-4 cells HPF (0-2); Toxic Granulation SLIGHT
[2023-12-26] MEDS: Folic Acid 1 MG TAB PO SCH (08:47)
[2023-12-26] MEDS: valACYclovir 500 MG TAB PO SCH (08:47)
[2023-12-26 10:25] LABS: Phosphorus 2.3 mg/dL (2.3-4.7)
[2023-12-26] MEDS: cefTRIAXone\\ROCEPHIN 2 GM in Sodium Chloride 0.9% 100 ML IVPB SCH (10:29)
[2023-12-26] MEDS ORDERED: cefTRIAXone\\ROCEPHIN 2 GM in Sodium Chloride 0.9% 100 ML IVPB SCH (10:30)
[2023-12-27 06:05] LABS: #Basophils Less than 0.03 10x3/uL (0.0-0.2); %Basophils 0.3 % (0.0-1.0); %Eosinophils 1.1 % (0.0-10.0); %Lymphocytes 26.6 % (21.0-51.0); %Monocytes 3.7 % (0.0-10.0); Hemoglobin 9.2 g/dL (14.0-18.0); Mean Corpuscular HGB CONC 34.1 g/dL (32.0-36.0); Mean Corpuscular Hemoglobin 37.1 pg (27.0-31.0); Mean Corpuscular Volume 108.9 fL (78.0-98.0); Mean Platelet Volume 11.6 fL (7.4-10.4); Platelet Count 75 10x3/uL (130-400); Red Blood Cell (RBC) Count 2.48 mill/uL (4.70-6.10)
[2023-12-27 06:15] LABS: ALT (SGPT) 63 U/L (8-55); AST (SGOT) 42 U/L (5-34); Albumin 2.5 g/dL (3.4-4.8); Alkaline Phosphatase 222 U/L (40-110); Anion Gap 14 mmol/L (10-20); BUN (Urea Nitrogen) 5 mg/dL (8.4-25.7); Bilirubin, Total 0.4 mg/dL (0.2-1.2); Calc. Creatinine Clearance 77 mL/min (70-130); Calcium 8.4 mg/dL (7.8-10.44); Carbon Dioxide 21 mmol/L (23-31); Chloride 109 mmol/L (98-107); Estimated GFR 91; Globulin 3.8 g/dL (2.4-3.5); Glucose 77 mg/dL (83-110); Potassium 3.7 mmol/L (3.5-5.1); Protein, Total 6.3 g/dL (5.8-8.1); Sodium 140 mmol/L (136-145)
[2023-12-27] MEDS ORDERED: Electrolyte Replacement Protocol FS PRN (09:00)
[2023-12-27] MEDS: FLU (Fluad Triv) TS24-25 (65UP)/MF59C/PF 45 MCG/0.5 ML Syringe IM ONE (09:21)
[2023-12-27] MEDS: Nystatin 500,000 UNITS/5 ML UDCUP SSW SCH (23:38)
[2023-12-28 04:49] LABS: ALT (SGPT) 48 U/L (8-55); AST (SGOT) 29 U/L (5-34); Albumin 2.6 g/dL (3.4-4.8); Alkaline Phosphatase 205 U/L (40-110); Anion Gap 12 mmol/L (10-20); BUN (Urea Nitrogen) 7 mg/dL (8.4-25.7); Bilirubin, Total 0.3 mg/dL (0.2-1.2); Calc. Creatinine Clearance 75 mL/min (70-130); Calcium 8.6 mg/dL (7.8-10.44); Carbon Dioxide 23 mmol/L (23-31); Chloride 107 mmol/L (98-107); Estimated GFR 90; Globulin 3.8 g/dL (2.4-3.5); Glucose 75 mg/dL (83-110); Potassium 3.4 mmol/L (3.5-5.1); Protein, Total 6.4 g/dL (5.8-8.1); Sodium 139 mmol/L (136-145)
[2023-12-28 05:17] LABS: #Basophils Less than 0.03 10x3/uL (0.0-0.2); %Basophils 0.3 % (0.0-1.0); %Eosinophils 1.1 % (0.0-10.0); %Monocytes 5.1 % (0.0-10.0); Hematocrit 27.1 % (42.0-52.0); Hemoglobin 9.3 g/dL (14.0-18.0); Mean Corpuscular HGB CONC 34.3 g/dL (32.0-36.0); Mean Corpuscular Hemoglobin 37.2 pg (27.0-31.0); Mean Corpuscular Volume 108.4 fL (78.0-98.0); Mean Platelet Volume 12.7 fL (7.4-10.4); Platelet Count 78 10x3/uL (130-400); RBC Distribution Width 17.5 % (11.5-14.5)
[2023-12-28] MEDS: Nystatin 500,000 UNITS/5 ML UDCUP SSW SCH (09:17)
[2023-12-28] MEDS: Potassium Chloride 20 MEQ TAB PO SCH (09:17)
[2023-12-28] MEDS: Dextrose 50% Abboject 50 ML SYRINGE SLOW IVP SCH (11:12)
[2023-12-28 15:06] VITALS: BMI 21.3
[2023-12-28 15:08] VITALS: BP 118/65; TEMP 97.2
== END 2023-12-28 15:12 | disposition home or self-care (01) | DRG 871 ==
LOC: ERS 19:33 → CCU 22:02 → MSONC 12-24 18:59
PROVIDERS: ADMIT Internal Medicine; ATTEND Internal Medicine
PROC: 3E033XZ Introduction of Vasopressor into Peripheral Vein, Percutaneous Approach (ICD-10-PCS; 2023-12-23)
PROC: 30233J0 Transfusion of Autologous Serum Albumin into Peripheral Vein, Percutaneous Approach (ICD-10-PCS; principal; 2023-12-24)
PROC: 3E03329 Introduction of Other Anti-infective into Peripheral Vein, Percutaneous Approach (ICD-10-PCS; 2023-12-24)
DX: A41.51 Sepsis due to Escherichia coli [E. coli] (principal); D61.810 Antineoplastic chemotherapy induced pancytopenia; G93.41 Metabolic encephalopathy; R65.21 Severe sepsis with septic shock; C90.00 Multiple myeloma not having achieved remission; I50.22 Chronic systolic (congestive) heart failure; D84.9 Immunodeficiency, unspecified; E87.20 Acidosis, unspecified; A41.4 Sepsis due to anaerobes; Z66 Do not resuscitate; E87.6 Hypokalemia; D70.9 Neutropenia, unspecified; R50.81 Fever presenting with conditions classified elsewhere; I25.2 Old myocardial infarction; I25.10 Atherosclerotic heart disease of native coronary artery without angina pectoris; E78.5 Hyperlipidemia, unspecified; R74.01 Elevation of levels of liver transaminase levels; T45.1X5A Adverse effect of antineoplastic and immunosuppressive drugs, initial encounter; I11.0 Hypertensive heart disease with heart failure; R53.81 Other malaise; K52.9 Noninfective gastroenteritis and colitis, unspecified; E83.42 Hypomagnesemia; K76.89 Other specified diseases of liver; E83.39 Other disorders of phosphorus metabolism; Z98.890 Other specified postprocedural states; Z86.73 Personal history of transient ischemic attack (TIA), and cerebral infarction without residual deficits; Z85.828 Personal history of other malignant neoplasm of skin; Z90.49 Acquired absence of other specified parts of digestive tract; Z87.891 Personal history of nicotine dependence; Z96.89 Presence of other specified functional implants; Z79.899 Other long term (current) drug therapy; Z86.79 Personal history of other diseases of the circulatory system
CPT/HCPCS: 36415; 71045; 71275; 74177; 76705; 80053; 80202; 81001; 83605; 83735; 84100; 85025; 87040; 87077; 87086; 87149; 87186; 94760; 96365; 96366; 96368; 96374; J0692; J0696; J1956; J2470; J2543; J3370; J3370-JW; J3475; J3480; J7050; J7999; P9047; Q9967

== ENCOUNTER 2024-01-06 06:55 | Day surgery (SDC) | payer MEDICARE, BC ==
[2024-01-05 11:05] VITALS: BMI 21.1
[2024-01-06] MEDS ORDERED: Indomethacin 50 MG SUPP ONE (09:26)
[2024-01-06] MEDS ORDERED: Iopamidol 30 ML ONE (09:26)
[2024-01-06] MEDS ORDERED: Glycopyrrolate 0.2 MG/ML 5 ML SYRINGE ONE ×2 (09:30)
[2024-01-06] MEDS ORDERED: Rocuronium Bromide 10 MG/ML (10ML VIAL) ONE (09:30)
[2024-01-06] MEDS ORDERED: PHENYLEPHRINE-NS 100 MCG/ML 10 ML SYRINGE ONE ×2 (09:30)
[2024-01-06] MEDS ORDERED: fentaNYL 50 mcg/mL 1 mL Vial ONE (09:30)
[2024-01-06] MEDS ORDERED: Etomidate 40 MG (20 mL) VIAL ONE (09:31)
[2024-01-06] MEDS ORDERED: LevoFLOXacin D5W 500 mg (100 mL) BAG ONE (09:39)
[2024-01-06] MEDS ORDERED: Lidocaine 1% PF 5 ML VIAL ONE (09:52)
[2024-01-06] MEDS ORDERED: ePHEDrine Sulfate 50 MG/10 ML VIAL ONE (10:23)
[2024-01-06] MEDS ORDERED: SUGAMMADEX SODIUM 200 MG/2 ML VIAL ONE (10:42)
[2024-01-06] MEDS ORDERED: Ondansetron PF 4 MG/2 ML Vial ONE (10:42)
== END 2024-01-06 13:45 | disposition home or self-care (01) ==
LOC: SDC 06:55
PROVIDERS: ATTEND Internal Medicine Gastroenterology
PROC: 0F798ZZ Dilation of Common Bile Duct, Via Natural or Artificial Opening Endoscopic (ICD-10-PCS; principal; 2024-01-06)
PROC: 0FPB8DZ Removal of Intraluminal Device from Hepatobiliary Duct, Via Natural or Artificial Opening Endoscopic (ICD-10-PCS; 2024-01-06)
PROC: 0F758DZ Dilation of Right Hepatic Duct with Intraluminal Device, Via Natural or Artificial Opening Endoscopic (ICD-10-PCS; 2024-01-06)
PROC: 0FC98ZZ Extirpation of Matter from Common Bile Duct, Via Natural or Artificial Opening Endoscopic (ICD-10-PCS; 2024-01-06)
DX: T85.590A Other mechanical complication of bile duct prosthesis, initial encounter (principal); K83.1 Obstruction of bile duct; I11.0 Hypertensive heart disease with heart failure; I50.30 Unspecified diastolic (congestive) heart failure; I25.10 Atherosclerotic heart disease of native coronary artery without angina pectoris; I95.9 Hypotension, unspecified; E78.5 Hyperlipidemia, unspecified; Z87.891 Personal history of nicotine dependence; Z86.0100 Personal history of colon polyps, unspecified; Z85.79 Personal history of other malignant neoplasms of lymphoid, hematopoietic and related tissues; Z90.49 Acquired absence of other specified parts of digestive tract; Z98.49 Cataract extraction status, unspecified eye; Z98.890 Other specified postprocedural states; Z79.890 Hormone replacement therapy; Z79.899 Other long term (current) drug therapy; Y83.1 Surgical operation with implant of artificial internal device as the cause of abnormal reaction of the patient, or of later complication, without mention of misadventure at the time of the procedure
CPT/HCPCS: 43264; 43276; 43277; 74330; J1956; J2405; J3010; Q9967; C1726; C2625

== ENCOUNTER 2024-03-17 18:49 | Inpatient (IN) | payer MEDICARE, BC ==
[2024-03-17 19:56] LABS: ALT (SGPT) 37 U/L (Less than 45); AST (SGOT) 50 U/L (11-34); Albumin 2.8 g/dL (3.1-4.5); Alkaline Phosphatase 119 U/L (40-110); Anion Gap 16 mmol/L (10-20); BUN (Urea Nitrogen) 16 mg/dL (8.4-25.7); Bilirubin, Total 0.8 mg/dL (0.3-1.2); Calc. Creatinine Clearance 0 mL/min (70-130); Calcium 8.4 mg/dL (7.8-10.44); Carbon Dioxide 21 mmol/L (23-31); Chloride 104 mmol/L (98-107); Estimated GFR 50; Globulin 4.2 g/dL (2.4-3.5); Glucose 100 mg/dL (83-110); Potassium 3.8 mmol/L (3.5-5.1); Sodium 137 mmol/L (136-145)
[2024-03-17 20:07] LABS: Anisocytosis SLIGHT = 6-15 cells HPF (0-5); Band 21 % (5-11); Hypochromia SLIGHT = 6-15 cells HPF (0-5); Lymphocytes 6 % (21-51); Macrocytosis SLIGHT = 6-15 cells HPF (0-5); Monocytes 3 % (0-10); Neutrophil 70 % (42-75); Platelet Adequacy Comment Platelets Decreased; Polychromasia SLIGHT = 2-3 cells HPF (0-2)
[2024-03-17 20:12] LABS: Hematocrit 19.4 % (42.0-52.0); Hemoglobin 6.8 g/dL (14.0-18.0); Mean Corpuscular HGB CONC 35.1 g/dL (32.0-36.0); Mean Corpuscular Hemoglobin 39.3 pg (27.0-31.0); Mean Corpuscular Volume 112.1 fL (78.0-98.0); Mean Platelet Volume 10.5 fL (7.4-10.4); Platelet Count 77 10x3/uL (130-400); RBC Distribution Width 15.6 % (11.5-14.5); Red Blood Cell (RBC) Count 1.73 mill/uL (4.70-6.10)
[2024-03-17] MEDS ORDERED: Senokot S 8.6-50 MG TAB PO PRN (20:27)
[2024-03-17] MEDS ORDERED: Acetaminophen 325 MG TAB PO PRN (20:27)
[2024-03-17] MEDS ORDERED: Ondansetron PF 4 MG/2 ML Vial IVP PRN (20:27)
[2024-03-17] MEDS ORDERED: Calcium Carbonate 500 MG ChewTAB PO PRN (20:27)
[2024-03-17] MEDS ORDERED: Midodrine HCl 5 MG TAB PO PRN (20:29)
[2024-03-17 21:45] LABS: Bacteria/HPF None Seen HPF (None Seen); Bilirubin Negative (Negative); Blood, Urine Negative (Negative); CAUTI Indications for Culture Fever or rigors; Clarity Clear (Clear); Glucose, Urine (Dipstick) Normal (Negative); Ketone, Urine Negative (Negative); Leukocyte Negative Leu/uL (Negative); Nitrite Negative (Negative); Protein, Urine (Dipstick) 50 mg/dL (Neg-Trace); RBC/HPF 0-3 HPF (0-3); Specific Gravity, Urine 1.014 (1.002-1.036); Squamous Epithelial None Seen HPF (0-3); Urobilinogen Normal mg/dL (Less than 2); WBC/HPF 0-3 HPF (0-3); pH, Urine 6.5 (5.0-9.0)
[2024-03-17 21:49] LABS: Urine Culture Reflex No No
[2024-03-17 21:54] LABS: Iron 35 ug/dL (65-175); Iron Binding Capacity, Total 176 mcg/dL (261-462)
[2024-03-17 22:27] VITALS: BMI 19.3
[2024-03-17] MEDS: Vancomycin 1.5 GRAM/300 ML BAG 1.5 GM in Premix 1 BAG IVPB SCH (22:32)
[2024-03-17] MEDS: Sodium Chloride 0.9% 1,000 ML IV SCH (23:18)
[2024-03-17] MEDS: Atorvastatin Calcium 20 MG TAB PO SCH (23:18)
[2024-03-18 00:21] LABS: Influenza A by NAA Not Detected (NotDetected); Influenza B by NAA Not Detected (NotDetected); SARS-CoV-2 NAA Rapid Test Not Detected (NotDetected)
[2024-03-18 05:39] LABS: #Basophils Less than 0.03 10x3/uL (0.0-0.2); %Eosinophils 0.9 % (0.0-10.0); %Lymphocytes 16.6 % (21.0-51.0); %Monocytes 6.6 % (0.0-10.0); %Neutrophils 75.6 % (42.0-75.0); Hematocrit 22.8 % (42.0-52.0); Hemoglobin 7.9 g/dL (14.0-18.0); Mean Corpuscular HGB CONC 34.6 g/dL (32.0-36.0); Mean Corpuscular Hemoglobin 38.3 pg (27.0-31.0); Mean Corpuscular Volume 110.7 fL (78.0-98.0); Mean Platelet Volume 11.8 fL (7.4-10.4); Platelet Count 71 10x3/uL (130-400); RBC Distribution Width 19.3 % (11.5-14.5); Red Blood Cell (RBC) Count 2.06 mill/uL (4.70-6.10)
[2024-03-18 05:47] LABS: Vancomycin, Random 16.1 ug/mL (See Comment)
[2024-03-18 06:35] LABS: ALT (SGPT) 24 U/L (Less than 45); AST (SGOT) 27 U/L (11-34); Albumin 2.3 g/dL (3.1-4.5); Alkaline Phosphatase 95 U/L (40-110); Anion Gap 15 mmol/L (10-20); BUN (Urea Nitrogen) 20 mg/dL (8.4-25.7); Bilirubin, Total 0.5 mg/dL (0.3-1.2); Calc. Creatinine Clearance 45 mL/min (70-130); Calcium 7.4 mg/dL (7.8-10.44); Carbon Dioxide 18 mmol/L (23-31); Chloride 113 mmol/L (98-107); Estimated GFR 65; Globulin 3.5 g/dL (2.4-3.5); Glucose 93 mg/dL (83-110); Potassium 3.9 mmol/L (3.5-5.1); Protein, Total 5.8 g/dL (5.8-8.1); Sodium 142 mmol/L (136-145)
[2024-03-18] MEDS: Cefepime 2 GM in Sodium Chloride 0.9% 100 ML IVPB SCH (08:07)
[2024-03-18] MEDS: Cholecalciferol 1,000 UNITS (25 MCG) TAB PO SCH (08:08)
[2024-03-18] MEDS: Saccharomyces boulardii 250 MG CAP PO SCH (08:08)
[2024-03-18] MEDS: Folic Acid 1 MG TAB PO SCH (08:09)
[2024-03-18] MEDS: Cyanocobalamin (Vitamin B-12) 1,000 MCG TAB PO SCH (08:09)
[2024-03-18] MEDS: valACYclovir 500 MG TAB PO SCH (08:21)
[2024-03-18] MEDS: VANCOMYCIN 1.25 GM/250 ML BAG 1.25 GM in Premix 1 BAG IVPB SCH (20:27)
[2024-03-19 07:26] LABS: Anion Gap 13 mmol/L (10-20); BUN (Urea Nitrogen) 15 mg/dL (8.4-25.7); Calc. Creatinine Clearance 41 mL/min (70-130); Calcium 7.9 mg/dL (7.8-10.44); Carbon Dioxide 17 mmol/L (23-31); Chloride 116 mmol/L (98-107); Estimated GFR 58; Glucose 75 mg/dL (83-110); Potassium 3.5 mmol/L (3.5-5.1); Sodium 142 mmol/L (136-145)
[2024-03-19 07:27] LABS: #Basophils Less than 0.03 10x3/uL (0.0-0.2); %Eosinophils 1.1 % (0.0-10.0); %Lymphocytes 21.2 % (21.0-51.0); %Neutrophils 69.7 % (42.0-75.0); Hematocrit 23.2 % (42.0-52.0); Hemoglobin 7.8 g/dL (14.0-18.0); Mean Corpuscular HGB CONC 33.6 g/dL (32.0-36.0); Mean Corpuscular Hemoglobin 36.8 pg (27.0-31.0); Mean Corpuscular Volume 109.4 fL (78.0-98.0); Mean Platelet Volume 11.2 fL (7.4-10.4); Platelet Count 85 10x3/uL (130-400); RBC Distribution Width 18.9 % (11.5-14.5); Red Blood Cell (RBC) Count 2.12 mill/uL (4.70-6.10)
[2024-03-19 11:09] VITALS: BP 139/74; TEMP 97.3
== END 2024-03-19 11:13 | disposition home or self-care (01) | DRG 808 ==
LOC: ERS 18:49 → SUATTDRO 18:49 → OBSVTOIN 20:04 → T4-A 20:04
PROVIDERS: ADMIT Internal Medicine; ATTEND Internal Medicine
PROC: 30233N1 Transfusion of Nonautologous Red Blood Cells into Peripheral Vein, Percutaneous Approach (ICD-10-PCS; principal; 2024-03-17)
DX: D61.810 Antineoplastic chemotherapy induced pancytopenia (principal); K83.1 Obstruction of bile duct; C90.00 Multiple myeloma not having achieved remission; T45.1X5A Adverse effect of antineoplastic and immunosuppressive drugs, initial encounter; R50.81 Fever presenting with conditions classified elsewhere; D70.9 Neutropenia, unspecified; E78.5 Hyperlipidemia, unspecified; I95.1 Orthostatic hypotension; D64.9 Anemia, unspecified; R53.81 Other malaise; B34.9 Viral infection, unspecified; Z79.899 Other long term (current) drug therapy; Z86.16 Personal history of COVID-19; Z87.891 Personal history of nicotine dependence; Z86.73 Personal history of transient ischemic attack (TIA), and cerebral infarction without residual deficits; Z90.49 Acquired absence of other specified parts of digestive tract
CPT/HCPCS: 36415; 36430; 71045; 80048; 80053; 80076; 80202; 81001; 83540; 83550; 83605; 84145; 85025; 86850; 86900; 86901; 86922; 87040; 87081; 87086; 87428; 94760; 96365; 96367; J0692; J3370; J7030; P9016

== ENCOUNTER 2024-10-05 21:18 | Inpatient (IN) | payer MEDICARE, BC ==
[2024-10-06 00:18] LABS: Hematocrit 19.6 % (42.0-52.0); Hemoglobin 6.2 g/dL (14.0-18.0); Mean Corpuscular Hemoglobin 33.9 pg (27.0-31.0); Mean Corpuscular Volume 107.1 fL (78.0-98.0); Platelet Count 64 10x3/uL (130-400); Red Blood Cell (RBC) Count 1.83 mill/uL (4.70-6.10); White Blood Cell (WBC) Count 2.38 10x3/uL (4.8-10.8)
[2024-10-06 00:30] LABS: ALT (SGPT) 19 U/L (Less than 45); AST (SGOT) 21 U/L (11-34); Albumin 2.6 g/dL (3.1-4.5); Alkaline Phosphatase 74 U/L (40-110); Anion Gap 18 mmol/L (10-20); BUN (Urea Nitrogen) 25 mg/dL (8.4-25.7); Bilirubin, Total 0.3 mg/dL (0.3-1.2); Calc. Creatinine Clearance 0 mL/min (70-130); Calcium 8.3 mg/dL (7.8-10.44); Carbon Dioxide 16 mmol/L (23-31); Chloride 109 mmol/L (98-107); Globulin 4.9 g/dL (2.4-3.5); Glucose 108 mg/dL (83-110); Potassium 3.7 mmol/L (3.5-5.1); Sodium 139 mmol/L (136-145)
[2024-10-06 01:48] LABS: Anisocytosis MODERATE=16-30 cells HPF (0-5); Macrocytosis SLIGHT = 6-15 cells HPF (0-5); Platelet Adequacy Comment Platelets Decreased; Polychromasia SLIGHT = 2-3 cells HPF (0-2); Smudge Cells 1.0 %
[2024-10-06 03:17] VITALS: BMI 23.0
[2024-10-06] MEDS: Vancomycin 1.5 GM / NS 500ML VIAL-2-BAG IVPB SCH (05:55)
[2024-10-06 08:13] LABS: Anion Gap 11 mmol/L (10-20); BUN (Urea Nitrogen) 25 mg/dL (8.4-25.7); Calc. Creatinine Clearance 23 mL/min (70-130); Calcium 8.2 mg/dL (7.8-10.44); Carbon Dioxide 19 mmol/L (23-31); Chloride 112 mmol/L (98-107); Glucose 101 mg/dL (83-110); Magnesium 1.2 mg/dL (1.6-2.6); Potassium 3.9 mmol/L (3.5-5.1); Sodium 138 mmol/L (136-145)
[2024-10-06 08:40] LABS: Hematocrit 19.6 % (42.0-52.0); Hemoglobin 6.5 g/dL (14.0-18.0); Mean Corpuscular Hemoglobin 32.7 pg (27.0-31.0); Mean Corpuscular Volume 98.5 fL (78.0-98.0); Platelet Count 58 10x3/uL (130-400); Red Blood Cell (RBC) Count 1.99 mill/uL (4.70-6.10); White Blood Cell (WBC) Count 2.70 10x3/uL (4.8-10.8)
[2024-10-06] MEDS: Famotidine 20 MG TAB PO SCH (08:40)
[2024-10-06] MEDS: Ursodiol 300 MG CAP PO SCH (08:40)
[2024-10-06] MEDS: Cholecalciferol 1,000 UNITS (25 MCG) TAB PO SCH (08:41)
[2024-10-06] MEDS ORDERED: VANCOMYCIN IVPB PRN (09:00)
[2024-10-06 11:45] LABS: Vancomycin, Random 20.2 ug/mL (See Comment)
[2024-10-06] MEDS ORDERED: Vancomycin Dose by Levels Sliding Scale (Wt 71-99) FS SCH (12:00)
[2024-10-06] MEDS ORDERED: Vancomycin HCl 500 MG in NaCl 0.9% 100 ML IV SCH (18:00)
[2024-10-06] MEDS: Vancomycin HCl 750 MG in Sodium Chloride 0.9% 250 ML 250 ML IVPB SCH (22:22)
[2024-10-07 00:54] LABS: Hematocrit 22.8 % (42.0-52.0); Hemoglobin 7.6 g/dL (14.0-18.0)
[2024-10-07 04:55] LABS: Calc. Creatinine Clearance 22.0 mL/min (70-130); Vancomycin, Random 24.2 ug/mL (See Comment)
[2024-10-07] MEDS ORDERED: Vancomycin HCl 500 MG in NaCl 0.9% 100 ML IV SCH (06:00)
[2024-10-08 05:02] LABS: Vancomycin, Random 22.3 ug/mL (See Comment)
[2024-10-08 05:03] LABS: Anion Gap 16 mmol/L (10-20); BUN (Urea Nitrogen) 29 mg/dL (8.4-25.7); Calc. Creatinine Clearance 22 mL/min (70-130); Calcium 8.5 mg/dL (7.8-10.44); Carbon Dioxide 17 mmol/L (23-31); Chloride 113 mmol/L (98-107); Glucose 101 mg/dL (83-110); Potassium 3.4 mmol/L (3.5-5.1); Sodium 143 mmol/L (136-145)
[2024-10-08 05:21] LABS: #Basophils Less than 0.03 10x3/uL (0.0-0.2); #Eosinophils Less than 0.03 10x3/uL (0.0-0.7); #Monocytes 0.13 10x3/uL (0.11-0.59); #Neutrophils 1.78 10x3/uL (1.40-6.50); %Basophils 0.4 % (0.0-1.0); %Eosinophils 0.7 % (0.0-10.0); %Lymphocytes 28.6 % (21.0-51.0); %Monocytes 4.6 % (0.0-10.0); %Neutrophils 63.6 % (42.0-75.0); Hematocrit 22.7 % (42.0-52.0); Hemoglobin 7.5 g/dL (14.0-18.0); Mean Corpuscular Hemoglobin 32.9 pg (27.0-31.0); Mean Corpuscular Volume 99.6 fL (78.0-98.0); Platelet Count 65 10x3/uL (130-400); Red Blood Cell (RBC) Count 2.28 mill/uL (4.70-6.10); White Blood Cell (WBC) Count 2.80 10x3/uL (4.8-10.8)
[2024-10-08] MEDS: Folic Acid 1 MG TAB PO SCH (08:50)
[2024-10-08] MEDS: Cyanocobalamin (Vitamin B-12) 1,000 MCG TAB PO SCH (08:51)
[2024-10-08 11:04] VITALS: BP 128/60; TEMP 97.8
[2024-10-08] MEDS ORDERED: Vancomycin HCl 500 MG in NaCl 0.9% 100 ML IV SCH (21:00)
== END 2024-10-08 14:15 | disposition home or self-care (01) | DRG 809 ==
LOC: ERS 21:18 → 2NO 23:04
PROVIDERS: ADMIT Student in an Organized Health Care Education/Training Program; ATTEND Hospitalist
PROC: 30233N1 Transfusion of Nonautologous Red Blood Cells into Peripheral Vein, Percutaneous Approach (ICD-10-PCS; principal; 2024-10-06)
PROC: 3E03329 Introduction of Other Anti-infective into Peripheral Vein, Percutaneous Approach (ICD-10-PCS; 2024-10-06)
DX: D61.818 Other pancytopenia (principal); C90.00 Multiple myeloma not having achieved remission; N17.9 Acute kidney failure, unspecified; D84.9 Immunodeficiency, unspecified; R50.9 Fever, unspecified; I50.9 Heart failure, unspecified; C00.9 Malignant neoplasm of lip, unspecified; Z96.21 Cochlear implant status; E03.9 Hypothyroidism, unspecified; I95.1 Orthostatic hypotension; M79.604 Pain in right leg; M79.605 Pain in left leg; N18.9 Chronic kidney disease, unspecified; H91.93 Unspecified hearing loss, bilateral; I25.2 Old myocardial infarction; Z98.890 Other specified postprocedural states; Z90.49 Acquired absence of other specified parts of digestive tract; Z79.899 Other long term (current) drug therapy; Z86.73 Personal history of transient ischemic attack (TIA), and cerebral infarction without residual deficits; Z85.828 Personal history of other malignant neoplasm of skin; M62.50 Muscle wasting and atrophy, not elsewhere classified, unspecified site
CPT/HCPCS: 36415; 36430; 71250; 80048; 80202; 82565; 83605; 83735; 84100; 84484; 85014; 85018; 85025; 86850; 86900; 86901; 86922; 93970; 99285; J2185; J3373; J7030; J7050; J7120; P9016

== ENCOUNTER 2024-10-12 09:51 | Day surgery (SDC) | payer MEDICARE, BC ==
[~2024-10-12 09:51] MED LIST changes: -Iopamidol-370 76% 500 ML MDV (1 ML CHARGE) ONE; +diphenhydrAMINE 25 MG CAP PO SCH
[2024-10-12] MEDS ORDERED: Acetaminophen 500 MG TAB ONE (10:33)
[2024-10-12] MEDS: Acetaminophen 500 MG TAB PO SCH (10:34)
[2024-10-12 14:08] VITALS: BP 128/62
[2024-10-12 16:06] VITALS: TEMP 97.6
== END 2024-10-12 16:22 | disposition home or self-care (01) ==
LOC: ONC/OP 09:51
PROVIDERS: ATTEND Internal Medicine Hematology & Oncology
DX: D64.9 Anemia, unspecified (principal); D69.6 Thrombocytopenia, unspecified
CPT/HCPCS: 36430; 86850; 86900; 86901; 86920; 86922; P9016

== ENCOUNTER 2024-11-17 15:11 | Observation (INO) | payer MEDICARE, BC ==
[2024-11-17] MEDS ORDERED: Acetaminophen 325 MG TAB PO PRN (18:00)
[2024-11-17] MEDS ORDERED: Ondansetron PF 4 MG/2 ML Vial IVP PRN (18:00)
[2024-11-17] MEDS: FLU (Fluad Triv) 25-26 (65UP)PF 45 MCG/0.5 ML Syringe IM ONE (18:34)
[2024-11-17 18:55] LABS: Anion Gap 16 mmol/L (10-20); BUN (Urea Nitrogen) 24 mg/dL (8.4-25.7); Calc. Creatinine Clearance 21 mL/min (70-130); Calcium 8.7 mg/dL (7.8-10.44); Carbon Dioxide 20 mmol/L (23-31); Chloride 108 mmol/L (98-107); Glucose 96 mg/dL (83-110); Magnesium 1.6 mg/dL (1.6-2.6); Potassium 3.8 mmol/L (3.5-5.1); Sodium 140 mmol/L (136-145)
[2024-11-17 19:21] LABS: Hematocrit 19.3 % (42.0-52.0); Hemoglobin 6.1 g/dL (14.0-18.0); Mean Corpuscular Hemoglobin 30.5 pg (27.0-31.0); Mean Corpuscular Volume 96.5 fL (78.0-98.0); Platelet Count 47 10x3/uL (130-400); Red Blood Cell (RBC) Count 2.00 mill/uL (4.70-6.10); White Blood Cell (WBC) Count 2.35 10x3/uL (4.8-10.8)
[2024-11-17 19:48] LABS: Anisocytosis MODERATE=16-30 cells HPF (0-5); Macrocytosis SLIGHT = 6-15 cells HPF (0-5); Microcytosis SLIGHT = 6-15 cells HPF (0-5); Ovalocytes SLIGHT = 2-5 cells HPF (0-1); Platelet Adequacy Comment Significant Decrease; Polychromasia SLIGHT = 2-3 cells HPF (0-2); Smudge Cells 5.0 %
[2024-11-17] MEDS: Ursodiol 300 MG CAP PO SCH (20:09)
[2024-11-18 06:53] LABS: Hematocrit 24.1 % (42.0-52.0); Hemoglobin 8.0 g/dL (14.0-18.0); Mean Corpuscular Hemoglobin 31.5 pg (27.0-31.0); Mean Corpuscular Volume 94.9 fL (78.0-98.0); Platelet Count 45 10x3/uL (130-400); Red Blood Cell (RBC) Count 2.54 mill/uL (4.70-6.10); White Blood Cell (WBC) Count 1.01 10x3/uL (4.8-10.8)
[2024-11-18 06:57] LABS: Anion Gap 18 mmol/L (10-20); BUN (Urea Nitrogen) 25 mg/dL (8.4-25.7); Calc. Creatinine Clearance 22 mL/min (70-130); Calcium 9.1 mg/dL (7.8-10.44); Carbon Dioxide 20 mmol/L (23-31); Chloride 110 mmol/L (98-107); Glucose 88 mg/dL (83-110); Potassium 4.2 mmol/L (3.5-5.1); Sodium 144 mmol/L (136-145)
[2024-11-18 07:17] LABS: Anisocytosis MODERATE=16-30 cells HPF (0-5); Macrocytosis SLIGHT = 6-15 cells HPF (0-5); Nucleated RBC (Manual Ct) 3 % (0); Ovalocytes SLIGHT = 2-5 cells HPF (0-1); Platelet Adequacy Comment Platelets Decreased; Polychromasia MARKED = >4 cells HPF (0-2)
[2024-11-18] MEDS: Cyanocobalamin (Vitamin B-12) 1,000 MCG TAB PO SCH (09:06)
[2024-11-18 10:50] VITALS: BMI 22.1
[2024-11-18 16:30] VITALS: BP 103/50; TEMP 98.6
== END 2024-11-18 17:30 | disposition home or self-care (01) ==
LOC: INTOOBSV 16:11 → MSONC 16:11
PROVIDERS: ADMIT Internal Medicine; ATTEND Internal Medicine
DX: D64.9 Anemia, unspecified (principal); C90.00 Multiple myeloma not having achieved remission; R53.1 Weakness; N18.30 Chronic kidney disease, stage 3 unspecified; I95.1 Orthostatic hypotension; E78.5 Hyperlipidemia, unspecified; I50.9 Heart failure, unspecified; Z87.891 Personal history of nicotine dependence; Z79.899 Other long term (current) drug therapy
CPT/HCPCS: 36430; 80048 ×2; 83735; 84100; 85025 ×2; 86850; 86900; 86901; 86920; 86922; P9016; 36415; G0378

== ENCOUNTER 2024-11-20 09:51 | Day surgery (SDC) | payer MEDICARE, BC ==
[2024-11-20] MEDS ORDERED: diphenhydrAMINE 25 MG CAP PO SCH (10:30)
[2024-11-20] MEDS ORDERED: Acetaminophen 500 MG TAB ONE (10:56)
[2024-11-20] MEDS: Acetaminophen 500 MG TAB PO SCH (10:57)
[2024-11-20 15:04] VITALS: BP 121/59; TEMP 98
== END 2024-11-20 14:14 | disposition home or self-care (01) ==
LOC: ONC/OP 09:51
PROVIDERS: ATTEND Internal Medicine Hematology & Oncology
DX: D64.9 Anemia, unspecified (principal); D69.6 Thrombocytopenia, unspecified
CPT/HCPCS: 36430; 86850; 86900; 86901; 86920; 86922; P9016; 36415; 80053

== ENCOUNTER 2024-12-20 10:22 | Day surgery (SDC) | payer MEDICARE, BC ==
[2024-12-20] MEDS: diphenhydrAMINE 25 MG CAP PO SCH (12:13)
[2024-12-20] MEDS ORDERED: diphenhydrAMINE 25 MG CAP ONE (12:13)
[2024-12-20] MEDS ORDERED: Acetaminophen 500 MG TAB ONE (12:13)
[2024-12-20] MEDS: Acetaminophen 500 MG TAB PO SCH (12:13)
[2024-12-20 17:33] VITALS: BP 149/65; TEMP 97.6
== END 2024-12-20 17:39 | disposition home or self-care (01) ==
LOC: ONC/OP 10:22
PROVIDERS: ATTEND Internal Medicine Hematology & Oncology
DX: D64.9 Anemia, unspecified (principal); D69.6 Thrombocytopenia, unspecified
CPT/HCPCS: 36430; 86850; 86900; 86901; 86920; 86922; P9016